=== PATIENT | female | born 1985 | race Caucasian/White ===

== ENCOUNTER 2016-09-22 11:48 | Inpatient (IN) | payer BC, OTHER ==
[~2016-09-22] VITALS: Ht 152.4 cm; Wt 87.7 kg
[~2016-09-22 11:48] MED LIST: ACYC-109 PO; AMPH20TA2 PO; BIRTH CONTROL; DIAZ-345 PO
[2016-09-22 12:03] VITALS: BP 136/83
[2016-09-22] MEDS ORDERED: MINERAL OIL CONCENTRATE 99.9% 15 ML UDC TOP PRN (13:00)
[2016-09-22] MEDS: D5 LR IV SOLUTION 1,000 ML IV SCH ×2 (13:08→21:10)
[2016-09-22 13:20] LABS: BASOPHILS % (AUTO) 0 % (0-10); EOSINOPHILS % (AUTO) 0 % (0-10); LYMPHOCYTES # (AUTO) 1.7 X 10^3 (1.0-4.0); LYMPHOCYTES % (AUTO) 17 % (12-44); MEAN CORPUSCULAR HEMOGLOBIN 32 PG (25-34); MEAN CORPUSCULAR HGB CONC 34 G/DL (32-36); MEAN CORPUSCULAR VOLUME 93 FL (80-99); MEAN PLATELET VOLUME 11.2 FL (7.4-10.4); MONOCYTES # (AUTO) 0.6 X 10^3 (0.0-1.0); MONOCYTES % (AUTO) 6 % (0-12); NEUTROPHILS # (AUTO) 7.7 X 10^3 (1.8-7.8); NEUTROPHILS % (AUTO) 77 % (42-75); PLATELET COUNT 144 10^3/uL (130-400); RED CELL DISTRIBUTION WIDTH 13.1 % (10.0-14.5)
[2016-09-22 13:41] LABS: BILIRUBIN,URINE NEGATIVE (NEGATIVE); KETONES,URINE NEGATIVE (NEGATIVE); LEUKOCYTE ESTERASE ,URINE 1+ (NEGATIVE); NITRITE,URINE NEGATIVE (NEGATIVE); PH,URINE 7 (5-9); PROTEIN,URINE NEGATIVE (NEGATIVE); UROBILINOGEN,URINE NORMAL (NORMAL)
[2016-09-22] MEDS ORDERED: CATHETER FLUSH 10 ML SYR IV SCH (14:00)
[2016-09-22] MEDS ORDERED: PROMETHAZINE INJ 25 MG/ML (PHENERGAN) AMP IVP PRN (16:15)
[2016-09-22] MEDS: fentaNYL INJECTION 100 MCG/2 ML AMP IVP PRN ×2 (16:47→20:13)
[2016-09-22 16:48] VITALS: BP 124/82
[2016-09-22] MEDS ORDERED: ZOLPIDEM 5 MG (AMBIEN) TAB PO ONE (21:00)
[2016-09-22] MEDS ORDERED: ANTACID SUSP 30 ML UDC (MYLANTA) PO PRN (21:00)
[2016-09-22] MEDS ORDERED: MISOPROSTOL 100 MCG (CYTOTEC) TAB PO ONE (21:00)
[2016-09-22 21:17] VITALS: BP 135/84
[2016-09-23] VITALS (60 sets, daily range): BP systolic 108–179; BP diastolic 54–93
[2016-09-23] MEDS: fentaNYL INJECTION 100 MCG/2 ML AMP IVP PRN (00:41)
[2016-09-23] MEDS ORDERED: LACTATED RINGERS 1,000 ML IV ONE ×2 (02:09→03:25)
[2016-09-23] MEDS ORDERED: SUFENTA 0.6MCG/ML BUPIVA 0.125 100 ML ONE (02:16)
[2016-09-23] MEDS ORDERED: BUPIVACAINE 0.25% 30 ML (SENSORCAINE) VIAL ONE (02:51)
[2016-09-23] MEDS ORDERED: NALOXONE 0.4 MG/ML 1 ML (NARCAN) VIAL IV PRN (03:30)
[2016-09-23] MEDS ORDERED: ONDANSETRON 4 MG/2 ML (SDV) Z0FRAN IV PRN (03:30)
[2016-09-23] MEDS ORDERED: EPIDURAL (SUFENTA 0.6MCG/ML BUPIVA 0.125%) 100 ML BAG EPI SCH (03:30)
[2016-09-23] MEDS: D5 LR IV SOLUTION 1,000 ML IV SCH (03:59)
[2016-09-23] MEDS ORDERED: LIDOCAINE/EPI 1%-1:200,000 (XYLOCAINE) 30 ML VIAL ONE (07:36)
--- NOTE | 2016-09-23 08:30 | Progress Note-Standard ---
Standard Progress Note Progress Notes/Assess & Plan Date Seen by Provider: Sep 23, 2016 Time Seen by Provider: 08:20 Progress/Assessment & Plan Patient admitted in active labor yesterday. Has had spontaneous contractions through the day and evening. Epidural placed after 2 doses of fentanyl. AROM this am at 9+ cm. Particulate meconium noted. 40 6/7 weeks today. well being reassuring. there are accelerations and also early decelerations. Contractions about every 4 minutes. Anticipate . Discussed Delee suction on perineum. Peds aware VS - Last 72 Hours, by Label 09/22/16 09/22/16 09/22/16 09/22/16 12:03 16:48 19:32 21:17 Temp 98.9 99.0 98.9 99.1 Pulse 75 71 73 Resp 18 18 18 B/P (MAP) 136/83 124/82 135/84 O2 Delivery Room Air Room Air Room Air 09/23/16 09/23/16 09/23/16 09/23/16 00:34 02:57 03:03 03:06 Temp 98.4 Pulse 76 85 81 74 Resp 18 20 20 20 B/P (MAP) 134/84 157/93 131/81 138/87 Pulse Ox 99 98 O2 Delivery Room Air Room Air Room Air Room Air 09/23/16 09/23/16 09/23/16 09/23/16 03:09 03:12 03:15 03:18 Pulse 77 82 78 80 Resp 20 20 20 18 B/P (MAP) 125/82 118/74 123/76 116/71 Pulse Ox 98 99 99 O2 Delivery Room Air Room Air Room Air Room Air 09/23/16 09/23/16 09/23/16 09/23/16 03:21 03:24 03:27 03:30 Pulse 82 83 81 71 Resp 18 18 18 18 B/P (MAP) 118/69 117/68 119/64 111/66 Pulse Ox 98 99 99 O2 Delivery Room Air Room Air Room Air Room Air 09/23/16 09/23/16 09/23/16 09/23/16 03:33 03:36 03:39 03:42 Pulse 80 78 75 81 Resp 18 18 18 18 B/P (MAP) 112/72 113/70 115/72 118/70 Pulse Ox 100 99 O2 Delivery Room Air Room Air Room Air Room Air 09/23/16 09/23/16 09/23/16 09/23/16 03:45 03:50 04:15 04:30 Temp 97.2 Pulse 72 64 70 65 Resp 18 18 18 18 B/P (MAP) 119/70 111/67 111/66 110/69 Pulse Ox 99 99 98 97 O2 Delivery Room Air Room Air Room Air Room Air 09/23/16 09/23/16 09/23/16 09/23/16 04:45 05:00 05:15 05:30 Pulse 63 68 75 71 Resp 18 18 18 18 B/P (MAP) 110/66 114/64 109/62 110/62 Pulse Ox 97 97 97 97 O2 Delivery Room Air Room Air Room Air Room Air 09/23/16 09/23/16 09/23/16 09/23/16 05:45 06:00 06:15 06:30 Pulse 68 76 69 75 Resp 18 18 18 18 B/P (MAP) 108/65 113/61 113/64 111/61 Pulse Ox 97 96 96 97 O2 Delivery Room Air Room Air Room Air Room Air 09/23/16 09/23/16 06:45 07:00 Pulse 74 78 Resp 18 18 B/P (MAP) 127/69 130/68 Pulse Ox 99 100 O2 Delivery Room Air Room Air Laboratory Tests Test 09/22/16 12:40 09/22/16 13:08 Range/Units Urine Color YELLOW Urine Clarity CLEAR Urine pH 7 5-9 Urine Specific [place] 1.010 L 1.016-1.022 Urine Protein NEGATIVE NEGATIVE Urine Glucose (UA) 1+ H NEGATIVE Urine Ketones NEGATIVE NEGATIVE Urine Nitrite NEGATIVE NEGATIVE Urine Bilirubin NEGATIVE NEGATIVE Urine Urobilinogen NORMAL NORMAL MG/DL Urine Leukocyte Esterase 1+ H NEGATIVE Urine RBC (Auto) NEGATIVE NEGATIVE Urine RBC NONE /HPF Urine WBC NONE /HPF Urine Squamous Epithelial Cells 2-5 /HPF Urine Crystals NONE /LPF Urine Bacteria FEW H /HPF Urine Casts NONE /LPF Urine Mucus NEGATIVE /LPF Urine Culture Indicated NO White Blood Count 10.0 4.3-11.0 10^3/uL Red Blood Count 4.00 L 4.35-5.85 10^6/uL Hemoglobin 12.7 11.5-16.0 G/DL Hematocrit 37 35-52 % Mean Corpuscular Volume 93 80-99 FL Mean Corpuscular Hemoglobin 32 25-34 PG Mean Corpuscular Hemoglobin Concent 34 32-36 G/DL Red Cell Distribution Width 13.1 10.0-14.5 % Platelet Count 144 130-400 10^3/uL Mean Platelet Volume 11.2 H 7.4-10.4 FL Neutrophils (%) (Auto) 77 H 42-75 % Lymphocytes (%) (Auto) 17 12-44 % Monocytes (%) (Auto) 6 0-12 % Eosinophils (%) (Auto) 0 0-10 % Basophils (%) (Auto) 0 0-10 % Neutrophils # (Auto) 7.7 1.8-7.8 X 10^3 Lymphocytes # (Auto) 1.7 1.0-4.0 X 10^3 Monocytes # (Auto) 0.6 0.0-1.0 X 10^3 Eosinophils # (Auto) 0.0 0.0-0.3 10^3/uL Basophils # (Auto) 0.0 0.0-0.1 10^3/uL AYAN PALM DO Sep 23, 2016 08:30
--- NOTE | 2016-09-23 09:57 | History & Physical-OB ---
OB - Chief Complaint & HPI Date/Time Date of Admission: Date of Admission: Sep 22, 2016 at 12:48 Time Seen by Provider: 08:20 Chief Complaint/History OB-Reason for Admission/Chief: Onset of Labor Hx : 1 Hx Para: 0 Expected Date of Delivery: Sep 17, 2016 Gestational Age in Weeks: 40 Gestational Age in Days: 5 Other reason for admission: Patient states she has been having contractions since friday evening, but these have increased today. They are reportedly about every 5 minutes. she Admission Nurse Assessment Rev: Yes History of Labs O +/- Rub I VDRL NR HIV - HBsAg - GBS - Other Had asymptomatic bactiuria in first trimester treated. Had episode of herpes labialis treated second trimester. History of cervical HPV with colposcopy. Most recent pap smears wnl No history of LEEP No history of genital herpes. Allergies and Home Medications Allergies Coded Allergies: No Known Drug Allergies (Unverified , 12/09/11) OB - History Hx of Present Care: Yes Ultrasounds: Normal mid trimester US Obstetrical Complications: None Medical Complications: None Information Induced Hypertension: No Maternal Gestational Diabetes: No Hemorrhage: No Obstetrical History Hx : 1 Hx Para: 0 Delivery History Hx Blood Disorders: No Adverse Rxn to Tranfusion: No Patient Past Medical History NC Social History/Family History HIV/AIDS: No Recent Infectious Disease Expo: No Sexually Transmitted Disease: Yes (HPV in High School) Alcohol Use: Denies Use Recreational Drug Use: No Immunizations Hepatitis A: No Hepatitis B: Yes Tetanus Booster (TDap): Less than 5yrs (07/15/16) Rubella: immune RPR/VDRL: Negative GBS Status: Negative HBsAG: Negative OB - Admission Exam Physical Exam Date Seen by Provider: Sep 23, 2016 Time Seen by Provider: 08:20 Vitals: Vital Signs 09/23/16 09/23/16 07:35 09:21 Temp 99.1 Pulse 74 Resp 18 B/P (MAP) 126/80 Pulse Ox 98 O2 Delivery Room Air Heart: Rhythm Normal Lungs: Clear, Equal Abdomen: Gravid Extremities: Edema (tr) Cervical Dilatation: 9cm (Patient was 2 cm dilated on admission but has labored all night. On my most recent exam was 9 cm. AROM meconium) Effacement: 100% Station: -1 Membranes: Ruptured Amniotic Fluid: Thin Meconium Heart Rate: 140's Accelerations: Accelerations Present Decelerations: Early Decelerations Short Term Variability: Present Mcc Variability: Minimal (3-5) Contractions on Admission: < 5 Minutes Apart Intensity: Moderate Labs Laboratory Tests Test 09/22/16 12:40 09/22/16 13:08 Range/Units Urine Color YELLOW Urine Clarity CLEAR Urine pH 7 5-9 Urine Specific [place] 1.010 L 1.016-1.022 Urine Protein NEGATIVE NEGATIVE Urine Glucose (UA) 1+ H NEGATIVE Urine Ketones NEGATIVE NEGATIVE Urine Nitrite NEGATIVE NEGATIVE Urine Bilirubin NEGATIVE NEGATIVE Urine Urobilinogen NORMAL NORMAL MG/DL Urine Leukocyte Esterase 1+ H NEGATIVE Urine RBC (Auto) NEGATIVE NEGATIVE Urine RBC NONE /HPF Urine WBC NONE /HPF Urine Squamous Epithelial Cells 2-5 /HPF Urine Crystals NONE /LPF Urine Bacteria FEW H /HPF Urine Casts NONE /LPF Urine Mucus NEGATIVE /LPF Urine Culture Indicated NO White Blood Count 10.0 4.3-11.0 10^3/uL Red Blood Count 4.00 L 4.35-5.85 10^6/uL Hemoglobin 12.7 11.5-16.0 G/DL Hematocrit 37 35-52 % Mean Corpuscular Volume 93 80-99 FL Mean Corpuscular Hemoglobin 32 25-34 PG Mean Corpuscular Hemoglobin Concent 34 32-36 G/DL Red Cell Distribution Width 13.1 10.0-14.5 % Platelet Count 144 130-400 10^3/uL Mean Platelet Volume 11.2 H 7.4-10.4 FL Neutrophils (%) (Auto) 77 H 42-75 % Lymphocytes (%) (Auto) 17 12-44 % Monocytes (%) (Auto) 6 0-12 % Eosinophils (%) (Auto) 0 0-10 % Basophils (%) (Auto) 0 0-10 % Neutrophils # (Auto) 7.7 1.8-7.8 X 10^3 Lymphocytes # (Auto) 1.7 1.0-4.0 X 10^3 Monocytes # (Auto) 0.6 0.0-1.0 X 10^3 Eosinophils # (Auto) 0.0 0.0-0.3 10^3/uL Basophils # (Auto) 0.0 0.0-0.1 10^3/uL OB - Assessment/Plan/Diagnosis Assessment Assessment: active labor Plan Plan: Expectant Management Other Plan Patient was admitted for expectant management. She changed slowly initially and then had decrease in contraction frequency. Misoprostol 50 mcg was given at 2000 due to decreased contractions and cervix still 3 cm/70% effaced. She then had increase in contractions and was 5 cm at 0300. Had epidural. Was 7 cm at 0700 and 9 cm at 0815 with AROM. Anticipate . AYAN Mohan DO Sep 23, 2016 09:57
[2016-09-23] MEDS ORDERED: OXYTOCIN/NORMAL SALINE 500 ML IV SCH ×2 (09:59→12:02)
[2016-09-23] MEDS ORDERED: AMPICILLIN/SULBACTAM 3 GM VIAL (UNASYN) ONE (10:49)
[2016-09-23] MEDS ORDERED: NS (IVPB) 100 ML ONE (10:49)
[2016-09-23] MEDS ORDERED: AMPICILLIN/SULBACTAM INJECTION 3 GM in NS (IVPB) 100 ML IV ONE ×2 (11:00→12:00)
[2016-09-23] MEDS ORDERED: metroNIDAZOLE 500MG/100ML IVPB 100 ML IV ONE (12:00)
[2016-09-23] MEDS ORDERED: MISOPROSTOL 200 MCG (CYTOTEC) TABLET PR ONE (12:00)
--- NOTE | 2016-09-23 12:02 | OB Labor & Delivery Record ---
Vag Delivery Note Vag Delivery Note Date of Delivery: 09/23/16 Preoperative Diagnosis: Neeru Luna is a 30 year old at 40 6/7 weeks in spontaneous labor meconium with AROM at 0820 (approximately), elevated temp during pushing (100.2 ) so Unasyn started (3 grams given). Postoperative Diagnosis: Same, post hemorrhage, manual evacuation of the uterus. Surgeon: AYAN PALM Anesthesia: epidural Delivery Type: vaginal Findings: Viable female infant, apgars 8/9, weight 7#12oz Lacerations: Intact placenta with 3 vessel cord. No nuchal cord, body cord. There was a shoulder dystocia, mild, that recovered with Juanita maneuver, suprapubic pressure and delivery of the posterior shoulder. This recovered in less than 1 minute. Cytotec 800 mcg placed for hemorrhage prophylaxis, she is at risk Estimated Blood Loss: 1200 ml Complications: None Condition: Stable Description of Procedure: The patient is a 30 year old at 40 6/7 weeks in spontaneous labor yesterday. She was 2 cm dilated on admission, but alison painfully. She contracted spontaneously, but in the evening on 09/22/16, contractions had slowed considerably and cervix was 3 cm dilated, so misoprostol 50 mcg was given x 1. She received epidural approximately 0300 and cervix 5 cm dilated after that. She then was 7 cm at approximately 0700. I performed AROM at 0820 and there was particulate meconium fluid. The well being was reassuring. She progressed to complete dilatation and began to push. She was then set up for delivery. The 's head was delivered atraumatically in the DOMINIC position. The shoulders and remainder of the ' s body were then delivered with assistance of Juanita maneuver, suprapubic pressure and delivery of the posterior shoulder. Upon delivery, the head was held below the level of the perineum and the mouth and nares were DeLee suctioned. The cord was doubly clamped and cut and the infant was again DeLee suctioned. There was moderate amount of fluid suctioned from the nose and oropharynx. The was handed off to the pediatric staff. An intact placenta with 3-vessel cord delivered via Vivian and there was found to be minimal bleeding.~ Vigorous fundal massage was performed and the fundus was found to be firm. IV oxytocin was given. Examination of the vagina and perineum revealed a 2nd degree laceration with partial capsulotomy (< 5 mm) and extension (1cm) up the right vaginal sulcus. The was repaired in the usual fashion with 3-0 Vicryl suture. Following the repair there was continued oozing from the cervix. I examined for cervical laceration but found none. The uterus was firm, however, I did a manual exam of the cervix and evacuated about 500 of clotted blood from the uterus. Previous estimated of EBL was 700ml. At this point, sponge, instrument and needle counts were correct. Mom and baby were both in stable condition in the labor suite. Will continue IV antibiotics for another dose. And give pr misoprostol for continued hemorrhage prophylaxis. She is at risk due to prolonged labor, possible chorioamnionitis, post dates . Vitals - Labs Vital Signs - I&O Vital Signs Date Time Temp Pulse Resp B/P (MAP) Pulse Ox O2 Delivery O2 Flow Rate FiO2 09/23/16 09:21 74 18 126/80 Room Air 09/23/16 09:07 72 18 143/79 Room Air 09/23/16 08:51 75 18 139/80 Room Air 09/23/16 08:36 77 18 131/85 Room Air 09/23/16 08:23 75 18 124/74 Room Air 09/23/16 08:07 72 18 118/70 Room Air 09/23/16 07:50 74 18 114/72 Room Air 09/23/16 07:35 99.1 73 18 112/70 98 Room Air 09/23/16 07:21 71 18 110/67 99 Room Air 09/23/16 07:05 91 18 110/76 100 Room Air 09/23/16 07:00 78 18 130/68 100 Room Air 09/23/16 06:45 74 18 127/69 99 Room Air 09/23/16 06:30 75 18 111/61 97 Room Air 09/23/16 06:15 69 18 113/64 96 Room Air 09/23/16 06:00 76 18 113/61 96 Room Air 09/23/16 05:45 68 18 108/65 97 Room Air 09/23/16 05:30 71 18 110/62 97 Room Air 09/23/16 05:15 75 18 109/62 97 Room Air 09/23/16 05:00 68 18 114/64 97 Room Air 09/23/16 04:45 63 18 110/66 97 Room Air 09/23/16 04:30 65 18 110/69 97 Room Air 09/23/16 04:15 70 18 111/66 98 Room Air 09/23/16 03:50 97.2 64 18 111/67 99 Room Air 09/23/16 03:45 72 18 119/70 99 Room Air 09/23/16 03:42 81 18 118/70 Room Air 09/23/16 03:39 75 18 115/72 99 Room Air 09/23/16 03:36 78 18 113/70 100 Room Air 09/23/16 03:33 80 18 112/72 Room Air 09/23/16 03:30 71 18 111/66 99 Room Air 09/23/16 03:27 81 18 119/64 Room Air 09/23/16 03:24 83 18 117/68 99 Room Air 09/23/16 03:21 82 18 118/69 98 Room Air 09/23/16 03:18 80 18 116/71 Room Air 09/23/16 03:15 78 20 123/76 99 Room Air 09/23/16 03:12 82 20 118/74 99 Room Air 09/23/16 03:09 77 20 125/82 98 Room Air 09/23/16 03:06 74 20 138/87 98 Room Air 09/23/16 03:03 81 20 131/81 99 Room Air 09/23/16 02:57 85 20 157/93 Room Air 09/23/16 00:34 98.4 76 18 134/84 Room Air 09/22/16 21:17 99.1 73 18 135/84 Room Air 09/22/16 19:32 98.9 09/22/16 16:48 99.0 71 18 124/82 Room Air 09/22/16 12:03 98.9 75 18 136/83 Room Air I & O 09/23/16 07:00 Intake Total 2800 ml Balance 2800 ml Labs Laboratory Tests 09/22/16 12:40: Urine Color YELLOW, Urine Clarity CLEAR, Urine pH 7, Urine Specific [place] 1.010L, Urine Protein NEGATIVE, Urine Glucose (UA) 1+H, Urine Ketones NEGATIVE, Urine Nitrite NEGATIVE, Urine Bilirubin NEGATIVE, Urine Urobilinogen NORMAL, Urine Leukocyte Esterase 1+H, Urine RBC (Auto) NEGATIVE, Urine RBC NONE, Urine WBC NONE, Urine Squamous Epithelial Cells 2-5, Urine Crystals NONE, Urine Bacteria FEWH, Urine Casts NONE, Urine Mucus NEGATIVE, Urine Culture Indicated NO 09/22/16 13:08: White Blood Count 10.0, Red Blood Count 4.00L, Hemoglobin 12.7, Hematocrit 37, Mean Corpuscular Volume 93, Mean Corpuscular Hemoglobin 32, Mean Corpuscular Hemoglobin Concent 34, Red Cell Distribution Width 13.1, Platelet Count 144, Mean Platelet Volume 11.2H, Neutrophils (%) (Auto) 77H, Lymphocytes (%) (Auto) 17, Monocytes (%) (Auto) 6, Eosinophils (%) (Auto) 0, Basophils (%) (Auto) 0, Neutrophils # (Auto) 7.7, Lymphocytes # (Auto) 1.7, Monocytes # (Auto) 0.6, Eosinophils # (Auto) 0.0, Basophils # (Auto) 0.0 AYAN PALM DO Sep 23, 2016 12:02
[2016-09-23] MEDS ORDERED: MEASLES,MUMPS,RUBELLA 1 EA INJ SQ ONE (12:15)
[2016-09-23] MEDS ORDERED: DIBUCAINE (NUPERCAINAL) 1% OINT 30 GM TOP PRN (12:15)
[2016-09-23] MEDS ORDERED: TETANUS,DIPTH,PERTUSS P/F (BOOSTRIX) 0.5 ML VIAL IM ONE (12:15)
[2016-09-23] MEDS ORDERED: WITCH HAZEL(TUCKS) 40 EA JAR TOP PRN (12:15)
[2016-09-23] MEDS ORDERED: BENZOCAINE/MENTHOL (DERMOPLAST) 56 ML CAN TP PRN (12:15)
[2016-09-23] MEDS ORDERED: FERR-74 PO (12:20)
[2016-09-23] MEDS ORDERED: DOCU100C37 PO (12:20)
[2016-09-23] MEDS ORDERED: IBUP-1773 PO (12:20)
[2016-09-23] MEDS ORDERED: HYDR-3812 PO (12:20)
[2016-09-23] MEDS: IBUPROFEN 600 MG (MOTRIN) TAB PO SCH ×2 (13:02→18:42)
--- NOTE | 2016-09-23 13:39 | Anesthesia-Regional Post-Op ---
Regional Patient Condition Mental Status: Alert, Oriented x3 Circulation: Same as Pre-Op Headache: Absent Sensation: Full Recovery Motor Block: Absent Post Op Complications Complications None Follow Up Care/Instructions Patient Instructions None needed. Anesthesia/Patient Condition Patient is doing well, no complaints, stable vital signs, no apparent adverse anesthesia problems. No complications reported per nursing. SYDNI SANCHEZ CRNA Sep 23, 2016 13:38
[2016-09-23] MEDS ORDERED: CATHETER FLUSH 10 ML SYR IV SCH (14:00)
[2016-09-23] MEDS ORDERED: AMPICILLIN/SULBACTAM INJECTION 1.5 GM in NS (IVPB) 50 ML IV ONE (17:00)
[2016-09-23] MEDS ORDERED: AUGMENTIN 875 MG TAB (AMOXICILLIN/CLAVULANATE) PO NR (18:15)
[2016-09-23] MEDS: HYDROcodone/APAP 5 MG/325 MG (LORTAB) TAB PO PRN (20:43)
[2016-09-23] MEDS: DOCUSATE SODIUM 100 MG (COLACE) CAP PO SCH (21:55)
[2016-09-24] MEDS: IBUPROFEN 600 MG (MOTRIN) TAB PO SCH ×3 (01:06→12:03)
[2016-09-24 02:00] VITALS: BP 126/80
[2016-09-24] MEDS: HYDROcodone/APAP 5 MG/325 MG (LORTAB) TAB PO PRN ×3 (02:08→12:02)
[2016-09-24 06:42] VITALS: BP 118/72
[2016-09-24] MEDS ORDERED: PRENATAL VITAMIN 1 EA TAB PO SCH (07:00)
[2016-09-24] MEDS: DOCUSATE SODIUM 100 MG (COLACE) CAP PO SCH (08:35)
[2016-09-24 08:36] VITALS: BP 104/73
[2016-09-24] MEDS ORDERED: FERROUS SULF 325 MG (IRON) TAB PO SCH (09:00)
[2016-09-24 10:16] LABS: BASOPHILS % (AUTO) 0 % (0-10); EOSINOPHILS # (AUTO) 0.1 10^3/uL (0.0-0.3); EOSINOPHILS % (AUTO) 1 % (0-10); LYMPHOCYTES # (AUTO) 2.2 X 10^3 (1.0-4.0); LYMPHOCYTES % (AUTO) 19 % (12-44); MEAN CORPUSCULAR HEMOGLOBIN 32 PG (25-34); MEAN CORPUSCULAR HGB CONC 33 G/DL (32-36); MEAN CORPUSCULAR VOLUME 96 FL (80-99); MONOCYTES # (AUTO) 0.7 X 10^3 (0.0-1.0); MONOCYTES % (AUTO) 6 % (0-12); NEUTROPHILS # (AUTO) 8.4 X 10^3 (1.8-7.8); NEUTROPHILS % (AUTO) 73 % (42-75); PLATELET COUNT 117 10^3/uL (130-400); RED BLOOD COUNT 3.24 10^6/uL (4.35-5.85); RED CELL DISTRIBUTION WIDTH 13.6 % (10.0-14.5); WHITE BLOOD COUNT 11.5 10^3/uL (4.3-11.0)
--- NOTE | 2016-09-24 10:22 | Postpartum Progress Note ---
Note Note Day # 1 s/p Subjective: Patient is without complaints. Ambulating, voiding. Tolerating a regular diet without nausea or vomiting. Normal lochia. Pain is well controlled with oral pain medications. breast feeding. CBC pending Objective: Physical Exam: General - Alert and oriented, no apparent distress Abdomen - Soft, appropriately tender to palpation, non-distended, fundus firm at umbilicus Extremities - no edema, negative John's bilaterally Assessment: 1. post- day # 1, status post spontaneous vaginal delivery. Recovering well, hemodynamically stable 2. Acute blood loss anemia - PP hemorrhage, CBC pending today 3. Fever during labor, suspect chorio (though only ruptured about 2 hours). Afebrile since. 4. Manual evacuation of the uterus. Plan: Routine care. Encourage breast feeding. Encourage ambulation. Ferrous sulfate supplementation. Plan for discharge today. Await cbc results. Vitals - Labs Vital Signs - I&O Vital Signs Date Time Temp Pulse Resp B/P (MAP) Pulse Ox O2 Delivery O2 Flow Rate FiO2 09/24/16 08:36 98.3 72 20 104/73 Room Air 09/24/16 06:42 98.2 72 20 118/72 Room Air 09/24/16 02:00 97.6 89 20 126/80 09/23/16 22:10 97.8 78 20 111/70 97 Room Air 09/23/16 17:50 98.9 94 18 112/78 96 Room Air 09/23/16 14:05 83 18 116/83 Room Air 09/23/16 13:49 74 18 120/74 Room Air 09/23/16 13:34 78 18 115/71 Room Air 09/23/16 13:19 79 18 119/64 Room Air 09/23/16 13:05 81 18 121/61 Room Air 09/23/16 12:50 90 18 121/56 Room Air 09/23/16 12:34 90 18 114/65 Room Air 09/23/16 12:21 93 18 121/68 Room Air 09/23/16 11:50 99 18 134/67 Room Air 09/23/16 11:35 100.9 117 18 130/77 Room Air 09/23/16 11:22 79 18 121/57 Room Air 09/23/16 11:08 77 18 179/79 Room Air 09/23/16 10:51 76 18 145/85 Room Air 09/23/16 10:39 82 18 124/54 Room Air 09/23/16 10:22 86 18 126/85 Room Air I & O 09/24/16 07:00 Intake Total 700 ml Balance 700 ml Labs Microbiology 09/23/16 Gram Stain - Final, Resulted 09/23/16 Wound Culture - Preliminary, Resulted No growth AYAN PALM DO Sep 24, 2016 10:22
--- NOTE | 2016-09-24 10:25 | Discharge Inst-Women's Service ---
Discharge Inst-Women's Serv Depart Medication/Instructions New, Converted or Re-Newed RX: RX on Chart Final Diagnosis Labor fever during labor suspected chorioamnionitis 2nd degree laceration Epidural PP hemorrhage Acute blood anemia Consults/Follow Up Additional Follow Up: Yes ([address] sultana for PP exam ) Activity Activity: Activity as Tolerated Driving Instructions: You May Drive NO SMOKING: NO SMOKING Nothing Inside Vagina: No Douching, No Anita (6 weeks minimum), No Tampons Diet Discharge Diet: No Restrictions Symptoms to Report to : Bleeding Excessive, Pain Increased, Fever Over 101 Degrees F, Vaginal Bleeding Increase, Cramps in Feet or Legs, Vaginal Discharge Foul For Any Problems or Questions: Contact Your Physician Skin/Wound Care Infection Signs and Symptoms: Increased Redness, Foul Odor of Wound, Increased Drainage, Skin Itchy or Has a Rash, Increased Swelling, Temperature Above 101 F Bathing Instructions: AYAN Amin DO Sep 24, 2016 10:25
== END 2016-09-24 14:30 | disposition home or self-care (01) | DRG 774 ==
LOC: LDRP 11:48 → WSo 11:48 → LDRP 12:48
PROVIDERS: ADMIT Obstetrics & Gynecology; ATTEND Obstetrics & Gynecology
PROC: 10E0XZZ Delivery of Products of Conception, External Approach (ICD-10-PCS; principal; 2016-09-23)
PROC: 0KQM0ZZ Repair Perineum Muscle, Open Approach (ICD-10-PCS; 2016-09-23)
PROC: 0UC97ZZ Extirpation of Matter from Uterus, Via Natural or Artificial Opening (ICD-10-PCS; 2016-09-23)
DX: O48.0 Post-term pregnancy (principal); O63.0 Prolonged first stage (of labor); O72.1 Other immediate postpartum hemorrhage; O90.81 Anemia of the puerperium; D62 Acute posthemorrhagic anemia; O75.2 Pyrexia during labor, not elsewhere classified; O70.1 Second degree perineal laceration during delivery; O66.0 Obstructed labor due to shoulder dystocia; Z37.0 Single live birth; Z3A.40 40 weeks gestation of pregnancy
CPT/HCPCS: 36415; 81000; 85025; 86850; 86900; 86901; 87070; 87205; 99212

== ENCOUNTER → 2019-06-03 | Outpatient (CLI) | payer OTHER ==
[~2019-06-03] MED LIST changes: +ACHD5005 PO; +DOCU100C37 PO; +FERR325T18 PO; +IBUP-1773 PO
--- NOTE | 2019-06-04 07:31 | Diagnostic Imaging Report ---
INDICATION: survey. TECHNIQUE: Multiple real-time grayscale images were obtained over the gravid uterus. COMPARISON: There are no prior studies available for comparison. FINDINGS: There is a single live fetus in cephalic presentation. heart motion was not and a rate of 140 BPM was recorded. There were no abnormalities identified. The growth parameters are fairly uniform. The placenta is posterior and there is no previa. The amniotic fluid volume is within normal limits. The cervix was identified and measures 4.3 cm in length. Biometrical measurements are as follows: Biparietal 5.75 cm, age 23 weeks 5 days. Head circumference 21.41 cm, age 23 weeks 4 days. Abdominal circumference 17.51 cm, age 22 weeks 4 days. Femur length 3.84 cm, age 22 weeks 3 days. Sonographic estimate age: 23 weeks 1 days. Sonographic estimated date of delivery: 09/29/19. Estimated Weight: 512 gm (+/- 75 gm). LMP percentile: 56%. heart rate: 140 beats per minute. number: 1 of 1. IMPRESSION: 1. There is a single live fetus of approximately 23 weeks 1 day gestation +/- 1.5 weeks. The EDC is September 29, 2019. 2. There were no abnormalities identified. 3. The growth parameters are fairly uniform. Dictated by: Dictated on workstation # [id number]
== END ==
LOC: RAD 11:30
PROVIDERS: ATTEND Nurse Practitioner Women's Health
DX: Z36.89 Encounter for other specified antenatal screening (principal); Z3A.23 23 weeks gestation of pregnancy
CPT/HCPCS: 76805

== ENCOUNTER 2019-09-27 20:00 | Inpatient (IN) | payer OTHER ==
[~2019-09-27] VITALS: Ht 152.4 cm; Wt 87.4 kg
--- NOTE | 2019-09-27 20:10 | NUR ---
CASSY HAYS presented to unit via ambulation from ED, accompanied by , with c/o INDUCTION. CASSY HAYS weighed, gowned, voided, and to bed. EFHM and TOCO applied, VS taken. CASSY HAYS oriented to bed controls, call light, TV, heat, and A/C controls.
--- NOTE | 2019-09-27 20:13 | NUR ---
Contacted Dr Muse and received orders for cervical ripening. POC discussed with pt and no concerns at this time.
[2019-09-27] MEDS ORDERED: NS IV 1000 ML 1,000 ML ONE (20:14)
[2019-09-27 20:30] VITALS: BP 121/80
[2019-09-27] MEDS ORDERED: LEVO100T7 PO (20:58)
[2019-09-27] MEDS ORDERED: PREN1TAB79 PO (20:58)
[2019-09-27] MEDS ORDERED: NS IV 1000 ML 1,000 ML IV SCH (21:00)
[2019-09-27] MEDS ORDERED: ZOLPIDEM 5 MG (AMBIEN) TAB PO ONE (21:00)
[2019-09-27 21:10] VITALS: BP 109/71
[2019-09-27 21:10] LABS: BASOPHILS % (AUTO) 0 % (0-10); EOSINOPHILS # (AUTO) 0.1 10^3/uL (0.0-0.3); EOSINOPHILS % (AUTO) 1 % (0-10); HEMATOCRIT 36 % (35-52); HEMOGLOBIN 12.3 G/DL (11.5-16.0); LYMPHOCYTES # (AUTO) 2.1 X 10^3 (1.0-4.0); LYMPHOCYTES % (AUTO) 24 % (12-44); MEAN CORPUSCULAR HEMOGLOBIN 32 PG (25-34); MEAN CORPUSCULAR HGB CONC 34 G/DL (32-36); MEAN CORPUSCULAR VOLUME 92 FL (80-99); MEAN PLATELET VOLUME 11.1 FL (7.4-10.4); MONOCYTES # (AUTO) 0.5 X 10^3 (0.0-1.0); MONOCYTES % (AUTO) 6 % (0-12); NEUTROPHILS # (AUTO) 6.2 X 10^3 (1.8-7.8); NEUTROPHILS % (AUTO) 70 % (42-75); PLATELET COUNT 166 10^3/uL (130-400); RED CELL DISTRIBUTION WIDTH 13.5 % (10.0-14.5); WHITE BLOOD COUNT 8.8 10^3/uL (4.3-11.0)
[2019-09-27 21:11] LABS: BILIRUBIN,URINE NEGATIVE (NEGATIVE); CLARITY,URINE CLEAR; COLOR,URINE YELLOW; GLUCOSE, URINE (UA) NEGATIVE (NEGATIVE); KETONES,URINE NEGATIVE (NEGATIVE); LEUKOCYTE ESTERASE ,URINE NEGATIVE (NEGATIVE); NITRITE,URINE NEGATIVE (NEGATIVE); PROTEIN,URINE NEGATIVE (NEGATIVE)
[2019-09-27] MEDS ORDERED: TERBUTALINE INJ 1 MG/ML (BRETHINE) AMP SC PRN (21:15)
[2019-09-27] MEDS ORDERED: MINERAL OIL CONCENTRATE 99.9% 15 ML UDC TOP PRN (21:15)
[2019-09-27] MEDS ORDERED: MISOPROSTOL 100 MCG (CYTOTEC) TAB PO ONE (21:15)
[2019-09-27 21:19] LABS: BACTERIA,URINE TRACE /HPF
[2019-09-27] MEDS: D5 LR IV SOLUTION 1,000 ML IV SCH (21:27)
[2019-09-27 22:00] VITALS: BP 118/73
[2019-09-27] MEDS ORDERED: CATHETER FLUSH 10 ML SYR IV SCH (22:00)
[2019-09-27 23:00] VITALS: BP 118/73
--- OUTSIDE RECORDS SUMMARY | 2019-09-27 23:30 | XMS REPORT | Continuity of Care Document ---
Author Organization Unknown Address Unknown Phone Unavailable Allergies There is no data. Medications There is no data. Problems There is no data. Procedures There is no data. Results There is no data. Encounters ACCT No. Visit Date/Time Discharge Status Pt. Type Provider Facility Loc./Unit Complaint [id number] 12/20/2014 09:13:43 12/20/2014 23:59: 59 CLS Outpatient Arian Leyva
--- OUTSIDE RECORDS SUMMARY | 2019-09-27 23:30 | XMS REPORT ---
Author Author [facility]1health [employer] [facility] Address [address] [address] Care Team Providers Care Navigating Officer Name Role Phone ANNELISE MATIAS Unavailable Arian Leyva Unavailable MATIAS, ANNELISE Unavailable MATIAS, ANNELISE Unavailable MATIAS, ANNELISE Unavailable [facility] Unavailable Unavailable [facility] Unavailable Unavailable MATIAS, ANNELISE Unavailable POLLY ANNELISE Unavailable [facility] PP Unavailable [facility] CCM Unavailable PALM DO, AYAN C Unavailable Unavailable PALM DO, AYAN C Unavailable Unavailable ESPERANZA CORLEY APRN Unavailable Unavailable Unavailable Unavailable PALM AYAN DO Unavailable Unavailable SHRAVAN CHADWICK Unavailable Unavailable PALM AYAN DO Unavailable Unavailable ESPERANZA CORLEY APRN Unavailable Unavailable MATIAS ANNELISE Unavailable Unavailable PALM DO, AYAN C Unavailable Unavailable PALM DO, AYAN C Unavailable Unavailable NADYA VILLARREAL APRN Unavailable Unavailable GERTRUDE FIGUEROA APRN Unavailable Unavailable Unavailable Unavailable Unavailable Unavailable Unavailable Unavailable Unavailable Unavailable Unavailable Unavailable Unavailable Unavailable Unavailable Unavailable Unavailable Unavailable Unavailable Unavailable Unavailable Unavailable Allergies Normalized Allergy Reported Date of Reaction(s) Care Provider Facility Allergy Type classification allergen Allergy Onset DA (7 Unclassified No Known Drug 12-09-2011 - no information AYAN PALM , Not Available sources.) Allergies DO (75788) Medications Current Medications Medication Ingredient Drug Dose Dates Status Sig Sig Care Class(es) (Normalized) (Original) Provid er {21 {21 no Active no Cryselle-28 no (Ethinyl (Ethinyl information information 0.3-30 name Estradiol Estradiol MG-MCG 0.03 MG / 0.03 MG / Orally Once Norgestrel Norgestrel a day 1 0.3 MG Oral 0.3 MG Oral tablet 24h Tablet) / 7 Tablet) / 7 Active (Inert (Inert Ingredients Ingredients 1 MG Oral 1 MG Oral Tablet) } Tablet) } Pack Pack [Rogelio [Paulineselle 28] (1 ] source.) Translation s: [ Edwinalle-28 0.3-30 MG-MCG] Completed/Discontinued Medications Medication Ingredient Drug Dose Dates Status Sig Sig Care Class(es) (Normalized) (Original) Provid er amphetamine Amphetamine Central 20 mg 01-29-20 Complete take 1 Adderall 20 Shravan aspartate 5 aspartate / Nervous 18 - d tablet by mg table t Cranst mg / Amphetamine System 03-28-20 mouth twice RxNorm: on amphetamine Sulfate / Stimulant 18 daily 627733 1 Oth er sulfate 5 Dextroamphe Tablet(s) PO Phone: mg / tamine BID 1(137) dextroamphe saccharate 01/28/2018 232-55 tamine / 03/28/2018 81 saccharate Dextroamphe Inactive 5 mg / tamine dextroamphe Sulfate tamine sulfate 5 mg oral tablet (16 sources.) 20 mg 09-03-2017 Completed take 1 Adderall Marci - tablet 20 mg e Andrade 11-14-2017 by tablet Other mouth RxNorm: Phone: twice [phone] 1 1(059)23 daily Tablet(s 1-5098 ) PO BID 09/17/19 18 11/15/19 18 Inactive 20 mg 06-30-2017 Completed take 1 Adderall Shravan - tablet 20 mg Canaan 08-28-2017 by tablet Other mouth RxNorm: Phone: twice [phone] 1 1(302)23 daily Tablet(s 2-6019 ) PO BID 07/01/19 18 08/29/19 18 Inactive amphetamine amphetamine Central 20 mg 09-04-19 Complete take 1 Adderall 20 Stepha aspartate 5 /dextroamph Nervous 18 - d tablet by mg table t xiomara mg / etamine System 11-15-19 mouth twice RxNorm: Wagne r amphetamine Translation Stimulant 18 daily 245865 1 O ther sulfate 5 s: [ Tablet(s) PO Phone: mg / Amphetamine BID 1(211) dextroamphe aspartate 09/16/2017 232-55 tamine 2.5 MG / 11/14/2017 81 saccharate Amphetamine Inactive 5 mg / Sulfate 2.5 dextroamphe MG / tamine Dextroamphe sulfate 5 tamine mg oral saccharate tablet (4 2.5 MG / sources.) Dextroamphe tamine Sulfate 2.5 MG Oral Tablet [Adderall], Adderall 10 mg] 20 mg 06-30-2017 Completed take 1 Adderall Shravan - tablet 20 mg [place] 08-28-2017 by tablet Other mouth RxNorm: Phone: twice [phone] 1 1(840)23 daily Tablet(s 2-5581 ) PO BID 07/01/19 18 08/29/19 18 Inactive 10 mg Active no Adderall no name inform 10 mg ation Orally twice a day 1 tablet 12h Active atomoxetine atomoxetine Norepinephr 40 mg 06-23-19 Complete take 1 Strattera 40 Shravan 40 mg oral ine 19 - d capsule by mg capsule Cr anst capsule (2 Reuptake 08-05-19 mouth once RxNorm: on sources.) Inhibitor 19 daily 401611 1 Other Capsule(s) Phone: PO daily 1(584) 06/22/2018 232-55 08/04/2018 81 Inactive This is to replace the lexapro and adderall 24 hr buPROPion Aminoketone 10-20-19 no take 1 Wellbutrin Shravan buPROPion Translation 19 - informat tablet by XL 300 mg 24 Cranst hydrochlori s: [ 05-16-19 ion mouth once hr tablet, on de 300 mg Wellbutrin 20 daily extended Other extended XL 300 mg release Phone: release 24 hr RxNorm: 1(005) oral tablet tablet, 411985 1 232-55 (5 extended Tablet(s) PO 81 sources.) release] daily 10/19/2018 05/16/2019 Active 08-05-2018 Completed take 1 Wellbutr Shravan - tablet in XL Netta 08-04-2018 by 150 mg Other mouth 24 hr Phone: once tablet, 1(975)23 daily extended 2-5581 release RxNorm: 476802 1 Tablet(s ) PO daily 08/06/19 19 08/05/19 19 Inactive 08-05-2018 Completed take 1 Wellbutr Shravan - tablet in XL Netta 03-02-2019 by 150 mg Other mouth 24 hr Phone: once tablet, 1(128)23 daily extended 2-5581 release RxNorm: 718242 1 Tablet(s ) PO daily 08/06/19 19 10/19/19 19 Inactive escitalopra escitalopra Serotonin 5 mg 12-03-19 Complete take 1 Lexapro 5 mg Stepha m 5 mg oral m Reuptake 18 - d tablet by tablet xiomara tablet (16 Translation Inhibitor 06-22-19 mouth once RxNorm: Andrade sources.) s: [ 19 daily in the 172458 1 Other Lexapro 10 evening Tablet(s) PO Phone: mg tablet, QPM 1(620) Lexapro 5 12/02/2017 232-55 mg] 06/21/2018 81 Inactive 10 mg 11-07-2017 Completed take 1 Lexapro Marci - tablet 10 mg e Andrade 12-01-2017 by tablet Other mouth RxNorm: Phone: once 148199 1 1(622)23 daily Tablet(s 2-3481 in the ) PO QPM evenin 11/08/19 g 18 12/02/19 18 Inactive 5 mg 09-16-2017 Completed take 1 Lexapro Marci - tablet 5 mg e Andrade 11-06-2017 by tablet Other mouth RxNorm: Phone: once 429558 1 1(754)23 daily Tablet(s 2-7197 in the ) PO QPM evenin 09/17/19 g 18 11/07/19 18 Inactive Cryselle ethinyl Estrogen no take 1 Cryselle no (28) 0.3 estradiol / informat tablet by (28) 0.3 name mg-30 mcg norgestrel ion mouth once mg-30 mcg tablet (5 daily tablet sources.) RxNorm: 085228 1 Tablet(s) PO daily No Start Date Active no fenugreek no 500 mg 06-30-19 Complete take 1 fenugree k Nadya information [employer] information 18 d capsule by mary Villarreal (5 extract 500 mouth once 500 mg Other sources.) mg capsule daily capsule Phone: RxNorm: 1 1(620) Capsule(s) 232-55 PO daily No 81 Start Date 06/29/2017 Inactive lactobacill lactobacill no 06-30-19 Complete take 1 Probiotic 10 Nadya us us information 18 d capsule by [employer] [place] rhamnosus rhamnosus mouth once capsule Other gg gg daily RxNorm: Phone: [phone] 877525 1 1(620) unt oral Capsule(s) 232-55 capsule (5 PO daily No 81 sources.) Start Date 06/29/2017 Inactive no no 06-30-19 Complete no no information vitamin information 18 d information vitami n name (5 no.101-ferr no.101-daisy sources.) ous us fumarate-fo fumarate-fol lic ic acid-dha acid-dha oral RxNorm: oral oral No Start Date 06/29/2017 Inactive Problems Active Problems Problem Normalized Date Last Normalized Normalized Provider Fa cility Classification Problem(s) Recorded Problem Problem Sta tus Duration Residual 23 weeks 09-27-2019 - Episodic Active GERTRUDE PURDY Via codes; gestation of , [employer] - (4 sources.) [place] (34147) Residual 40 weeks 09-27-2019 - Episodic Active RAJWINDER NAJERA Via codes; gestation of DO [facility] unclassified Hospital - (2 sources.) [place] (80221) Acute Acute 09-27-2019 - Episodic Active AYAN PALM [facility] Via posthemorrhagi posthemorrhagi DO [facility] c anemia (5 c anemia Hospital - sources.) [place] (43878) Allergic Allergic Episodic Active ANNELISE Community reactions (2 contact MATIAS [address] [facility] sources.) dermatitis due of [place] to plants, [place] (57297) except food Translations: [ - Allergic contact dermatitis due to plants, except food L23.7, - Allergic contact dermatitis due to plants, except food L23.7] Other Anemia of the 09-27-2019 - Chronic Active AYAN Vargas [facility] Via complications puerperium DO [facility] of ; Hospital - puerperium [place] affecting (88742) management of mother (5 sources.) Attention-defi Attention-defi Chronic Active [place]ady[place] [address] , MICHAEL and disruptive hyperactivity (26615) (Work behavior disorder, Phone: disorders (20 combined type sources.) Translations: ) [ Attention-defi cit hyperactivity disorder, combined type, Attention-defi cit hyperactivity disorder, combined type, Attention-defi cit hyperactivity disorder, combined type] Nonspecific Chest pain, Episodic Active ESPERANZA CORLEY [facility] Via chest pain (3 unspecified [employer] [facility] sources.) Hospital - [place] (71766) Urinary tract Chronic Chronic Active AYAN PALM , Not A vailable infections (1 interstitial DO (75679) source.) cystitis Other Encounter for 09-27-2019 - Episodic Active GERTRUDE RICO [facility] Via screening for other , [employer] [facility] suspected specified Hospital - conditions [place] (not mental screening (33323) disorders or infectious disease) (4 sources.) Endometriosis Endometriosis Chronic Active AYAN PALM , Not Available (2 sources.) of uterus DO (52234) Translations: [ PELV PERIT ENDOMETRIOSIS] Anxiety Generalized Chronic Active Nadya duran disorders (20 anxiety 90600 MICHAEL AGRAWAL sources.) disorder (52765) (Work Translations: Phone: [ Generalized anxiety ) disorder, Generalized anxiety disorder, Generalized anxiety disorder] Mood disorders Major Chronic Active Nadya Chadwick (20 sources.) depressive 22935 MICHAEL AGRAWAL disorder, (24715) (Work recurrent, Phone: mild Translations: ) [ Major depressive disorder, recurrent, mild, Major depressive disorder, recurrent, mild, Major depressive disorder, recurrent, mild] Fetopelvic Obstructed 09-27-2019 - Episodic Active AYAN PALM [facility] Via disproportion; labor due to DO [facility] obstruction (5 shoulder Hospital - sources.) dystocia [place] (23439) Other Other 09-27-2019 - Episodic Active AYAN PALM [facility] Via complications immediate DO [facility] of ; Hospital - puerperium hemorrhage [place] affecting (00497) management of mother (5 sources.) Thyroid Other 09-27-2019 - Chronic Active Nadya Chadwick disorders (20 specified 28649 MICHAEL AGRAWAL sources.) hypothyroidism (01874) (Work Translations: Phone: [ Other specified ) hypothyroidism , Other specified hypothyroidism , Other specified hypothyroidism , NONTOXIC GOITER, UNSPECIFIED, Hypothyroidism , unspecified, Thyroiditis, unspecified] Other Pain in joint, Episodic Active ESPERANZA CORLEY [facility] Via non-traumatic shoulder [employer] [facility] joint region Hospital - disorders (3 [place] sources.) (05623) Spondylosis; Pain in Episodic Active SUNDAYJAMEEL CORLEY [facility] V ia intervertebral thoracic spine [employer] [facility] disc Hospital - disorders; [place] other back (15199) problems (3 sources.) Prolonged Post-term 09-27-2019 - Episodic Active AYAN PALM , [facility] Via (5 DO [facility] sources.) Hospital - [place] (72880) distress Prolonged 09-27-2019 - Episodic Active AYANSridhar CORONA [facility] Via and abnormal first stage DO [facility] of (of labor) Hospital - labor (5 [place] sources.) (44917) Other Pyrexia during 09-27-2019 - Episodic Active AYAN JAN GARCIA , [facility] Via complications labor, not DO [facility] of ; elsewhere Hospital - puerperium classified [place] affecting (44545) management of mother (5 sources.) OB-related Second degree 09-27-2019 - Episodic Active AYANSridhar CORONA [facility] Via trauma to perineal DO [facility] perineum and laceration [facility] vulva (5 during [place] sources.) delivery (23912) Other Single live 09-27-2019 - Episodic Active AYAN ARPITA , [facility] Via and DO [facility] delivery Hospital - including [place] normal (5 (06441) sources.) Past or Other Problems Problem Normalized Date Last Normalized Normalized Provider Jamin suarez Classification Problem(s) Recorded Problem Problem Sta tus Duration Residual 40 weeks no information no information AYAN PALM , Not Available codes; gestation of DO (18504) unclassified (3 sources.) Appendicitis Hyperplasia of Episodic Completed AYAN PALM , Not Available and other appendix DO (91518) appendiceal (lymphoid) conditions (1 source.) Other Pain in right Episodic Completed Nadya Chadwick non-traumatic wrist 09884 , LLC joint Translations: (63879) (Work disorders (15 [ Pain in Phone: sources.) right wrist, Pain in right ) wrist, Pain in right wrist] Other Peritoneal Episodic Completed AYAN ARPITA , Not Nena ilable gastrointestin adhesions DO (66084) al disorders (postoperative (1 source.) ) (postinfection ) Other female Unspecified Episodic Completed AYAN PALM , Not Available genital symptom DO (69591) disorders (1 associated source.) with female genital organs Procedures Procedure Normalized Procedure Procedure Result Performer Facility Date 09-23-2016 DELIVERY OF PRODUCTS no information no name [facility] (20149[facility] DELIVERY OF PRODUCTS no information no name Not Avail able (06131) OF CONCEPTION, EXTE 10-16-2017 Dexamethasone sodium no information [facility] (31756) 09-23-2016 EXTIRPATION OF MATTER no information no name [facility] Via [facility] FROM UTERUS, VIA [facility] (30590) EXTIRPATION OF MATTER no information no name Not Avai lable (50321) FROM UTERUS, VIA O 10-16-2017 Methylprednisolone 40 no information no [facility] inj [facility] (17012) 09-23-2016 Repair Perineum no information no name [facility] Via [facility] Muscle, Open Approach [facility] (45700) Repair Perineum no information no name Not Available (20353) Muscle, Open Approach 10-16-2017 Therapeutic no information no name [facility] ealth prophylactic/dx [facility] injection subq/im [place] (54191) Immunizations Normalized Immunization Date Notes Care Provider Facili ty Immunization DEPO MEDROL 40 MG/ML 10-16-2017 no [address] ([address]385) DEXAMETHASONE 4MG/ML 10-16-2017 no information [facility] (PER 1 MG) [address] [place] [address] (08389) influenza, 01-09-2018 no information [facility] injectable, [address] [place] [address] quadrivalent, [place] (00894) preservative free influenza, 04-10-2017 no information no name Not Availab le injectable, (77862) quadrivalent, preservative free influenza, seasonal, 01-09-2018 no information [facility] injectable [address] [place] [address] (17000) SINGLE IMMUNIZATION 01-09-2018 - no information [facility] ADMIN Translations: 01-09-[address] [place] [address] [ FLULAVAL QUAD [place] (80078) 0.5ML (6 MO ] Results Test Name Value Interpretation Reference Range Date Time Fa cility (Normalized) (Normalized) (Medline Reference) not yet categorized on 2019-09-27 WRISTBAND NUMBER [id number] (no code) 09-27-2019 PENDING L OCATION 17:15-0400 [facility] (76000) laboratory on 2019-09-27 ABO and Rh group OP (no code) 09-27-2019 PENDING L OCATION Nom (Bld) 17:20-0400 [facility] (46202) Bacteria LM Ql TRACE (no code) 09-27-2019 PENDING LOC ATION (Urine sed) 16:30-0400 [facility] (18169) Basophils (Bld) 0.0 10*3/uL (NEG) 0 - 0.3 10*3/uL 09-27-2019 PENDING LOCATION [#/Vol] 16:30-0400 [facility] (27970) Basophils/100 0 % (NEG) 0.5 - 1 % 09-27-2019 PENDING LOCATION WBC (Bld) 16:30-0400 [facility] (54345) Bilirubin Ql (U) Negative (no code) 09-27-2019 PENDING L OCATION 16:30-0400 [facility] (97726) Blood group Negative (no code) 09-27-2019 PENDING LOCATI ON antibody screen 17:34-0400 [facility] (91623) Ql Casts LM Ql NONE (no code) 09-27-2019 PENDING LOCATI ON (Urine sed) 16:30-0400 [facility] (51832) Clarity (U) CLEAR (no code) 09-27-2019 PENDING LOCATI ON 16:30-0400 [facility] (45664) Color (U) YELLOW (no code) 09-27-2019 PENDING LOCATI ON 16:30-0400 [facility] (70911) Crystals LM Ql NONE (no code) 09-27-2019 PENDING LOC ATION (Urine sed) 16:30-0400 [facility] (48625) Eosinophils 0.1 10*3/uL (NEG) 0.05 - 0.5 09-27-2019 PENDING LOCATION (Bld) [#/Vol] 10*3/uL 16:30-0400 [facility] (70751) Eosinophils/100 1 % (NEG) 1 - 4 % 09-27-2019 PENDIN G LOCATION WBC (Bld) 16:30-0400 [facility] (42107) Epithelial 2-5 (no code) 09-27-2019 PENDING LOCATI ON cells.squamous 16:30-0400 [facility] (91262) LM Ql (Urine sed) Erythrocyte 13.5 % (NEG) 11.6 - 14.6 % 09-27-2019 PENDIN G LOCATION distribution 16:30-0400 [facility] (49241) width (RBC) [Ratio] Glucose Auto Negative (no code) 09-27-2019 PENDING LOCAT ION test strip Ql 16:30-0400 [facility] (97772) (U) Hematocrit (Bld) 36 % (NEG) 36.1 - 50.3 % 09-27-2019 P ENDING LOCATION [Volume 16:30-0400 [facility] (88244) fraction] Hemoglobin (Bld) 12.3 g/dL (NEG) 12.1 - 17.2 g/dL 09-27-2019 PENDING LOCATION [Mass/Vol] 16:30-0400 [facility] (75159) Ketones Auto Negative (no code) 09-27-2019 PENDING LOCAT ION test strip Ql 16:30-0400 [facility] (42335) (U) Leukocyte Negative (no code) 09-27-2019 PENDING LOCATI ON esterase Test 16:30-0400 [facility] (45613) strip Ql (U) Lymphocytes 2.1 10*3/uL (NEG) 0.9 - 2.9 09-27-2019 PENDING LOCATION (Bld) [#/Vol] 10*3/uL 16:30-0400 [facility] (11009) Lymphocytes/100 24 % (NEG) 20 - 40 % 09-27-2019 PENDIN G LOCATION WBC (Bld) 16:30-0400 [facility] (13613) MCH (RBC) 32 pg (NEG) 27 - 31 pg 09-27-2019 PENDING LOC ATION [Entitic mass] 16:30-0400 [facility] (82336) MCHC (RBC) 34 g/dL (NEG) 32 - 36 g/dL 09-27-2019 PENDING LOCATION [Mass/Vol] 16:30-0400 [facility] (68064) MCV (RBC) 92 (NEG) 09-27-2019 PENDING LOCATI ON [Entitic vol] 16:30-0400 [facility] (96749) Monocytes (Bld) 0.5 10*3/uL (NEG) 0.3 - 0.9 09-27-2019 PEND ING LOCATION [#/Vol] 10*3/uL 16:30-0400 [facility] (32084) Monocytes/100 6 % (NEG) 2 - 8 % 09-27-2019 PENDING LOCATION WBC (Bld) 16:30-0400 [facility] (06484) Mucus Ql (Urine SMALL (A) 09-27-2019 PENDING LO CATION sed) 16:30-0400 [facility] (37203) Neutrophils 6.2 10*3/uL (NEG) 1.7 - 7 10*3/uL 09-27-2019 PE NDING LOCATION (Bld) [#/Vol] 16:30-0400 [facility] (70912) Neutrophils/100 70 % (NEG) 40 - 60 % 09-27-2019 PENDIN G LOCATION WBC (Bld) 16:30-0400 [facility] (53446) Nitrite Ql (U) Negative (no code) 09-27-2019 PENDING LOC ATION 16:30-0400 [facility] (98946) pH (U) 6.0 [pH] (no code) 4.6 - 8 [pH] 09-27-2019 PENDING L OCATION 16:30-0400 [facility] (51693) Platelet mean 11.1 (H) 09-27-2019 PENDING LOCA TION volume (Bld) 16:30-0400 [facility] (78118) [Entitic vol] Platelets (Bld) 166 10*3/uL (NEG) 150 - 450 09-27-2019 PEND ING LOCATION [#/Vol] 10*3/uL 16:30-0400 [facility] (10643) Protein Ql (U) Negative (no code) 09-27-2019 PENDING LOC ATION 16:30-0400 [facility] (95304) RBC (Bld) 3.90 10*6/uL (L) 4.2 - 6.1 09-27-2019 PENDING L OCATION [#/Vol] 10*6/uL 16:30-0400 [facility] (87976) RBC LM.HPF NONE (no code) 09-27-2019 PENDING LOCATI ON (Urine sed) 16:30-0400 [facility] (19731) [#/Area] RBC Ql (U) Negative (no code) 09-27-2019 PENDING LOCATI ON 16:30-0400 [facility] (49071) Specific gravity 1.020 (no code) 09-27-2019 PENDING L OCATION (U) [Rel 16:30-0400 [facility] (08005) density] Urinalysis NO (no code) 09-27-2019 PENDING LOCATI ON complete W 16:30-0400 [facility] (78332) Reflex Culture panel - Urine Urobilinogen (U) 0.2 mg/dL (no code) 09-27-2019 PENDING L OCATION [Mass/Vol] 16:30-0400 [facility] (27103) WBC (Bld) 8.8 10*3/uL (NEG) 3.5 - 10.5 09-27-2019 PENDING L OCATION [#/Vol] 10*3/uL 16:30-0400 [facility] (14733) WBC LM.HPF NONE (no code) 09-27-2019 PENDING LOCATI ON (Urine sed) 16:30-0400 [facility] (69268) [#/Area] laboratory on 2019-02-04 HBV surface Ag Negative (no code) 02-04-2019 [facility] (00 000) IA Ql 06:10-0400 HCV Ab 0.1 (no code) 02-04-2019 [facility] (72896 ) Signal/Cutoff IA 11:10-0400 [Rel units/Vol] Reagin Ab RPR Ql Non Reactive (no code) 02-04-2019 [facility] (95543) (S) 04:21-0400 Rubella virus 4.05 (no code) 02-04-2019 [facility] (000 00) IgG Qn (S) 21:16-0400 laboratory on 2018-12-25 Beta HCG Negative (N) [facility] ( test) [facility] (90052) other on 2018-08-06 Estrogen 79 (no code) 08-06-2018 [facility] (62243 ) [Mass/Vol] 19:14-0400 other on 2018-08-05 Follitropin Qn 2.0 m[IU]/mL (no code) 08-05-2018 [facility] (0 0000) 02:10-0400 Lutropin Qn 3.0 m[IU]/mL (no code) 08-05-2018 [facility] (0000 0) 02:180400 Progesterone 0.1 ng/mL (no code) 08-05-2018 [facility] (0000 0) [Mass/Vol] 02:04-0400 imm/path on 2017-03-26 Thyroperoxidase [IU]/mL (H) 0 - 35 [IU]/mL 03-26-2017 N ot Available Ab Qn 10:38-0500 (95866) Vital Signs Vital Sign Value Interpretation Reference Date Time Care Prov ider Facility (Normalized) (Normalized) Range BMI (Body Mass 31.1 kg/m2 (no code) 15 - 25 kg/m2 08-05-2018 Supriya maicol Chadwick Index) 02:00 MICHAEL Disla MD (96553) (Work Phone: ) BMI (Body Mass 29.3 kg/m2 (no code) 15 - 25 kg/m2 01-28-2018 Supriya maicol Chadwick Index) 13:00 MICHAEL Disla MD ([id number]) (Work Phone: ) BMI (Body Mass 28.7 kg/m2 (no code) 15 - 25 kg/m2 11-12-2017 Supriya maicol Chadwick Index) 13:00-399 MICHAEL Disla MD (33865) (Work Phone: ) BMI (Body Mass 30.66 kg/m2 (no code) 15 - 25 kg/m2 10-16-2017 [facility] Community Index) 10:40-[id number] [place] [address] (95100) BMI (Body Mass 29.7 kg/m2 (no code) 15 - 25 kg/m2 09-16-2017 Supriya maicol Chadwick Index) 13:00 MICHAEL Disla MD (19574) (Work Phone: ) BMI (Body Mass 30.9 kg/m2 (no code) 15 - 25 kg/m2 06-30-2017 Supriya maicol Chadwick Index) 13:00 MICHAEL Disla MD (81969) (Work Phone: ) BMI (Body Mass 31.1 kg/m2 (no code) 15 - 25 kg/m2 02-14-2017 Supriya Chadwick Index) 13:762 MICHAEL AGRAWAL (71845) (Work Phone: ) Body 98.9 [degF] (no code) 97.8 - 99.0 10-16-2017 [facility] Temperature [degF] 10:40-0400 POLLY [address] [facility] (71227) Body weight 72 kg (N) kg 08-05-2018 Nadya Chadwick 02:762 MICHAEL AGRAWAL (08963) (Work Phone: ) Body weight 68 kg (N) kg 01-28-2018 Nadya Chadwick 02:762 MICHAEL AGRAWAL (81654) (Work Phone: ) Body weight 67 kg (N) kg 11-12-2017 Nadya Chadwick 02:762 MICHAEL AGRAWAL (99490) (Work Phone: ) Body weight 69 kg (N) kg 09-16-2017 Nadya Chadwick 02:762 MICHAEL AGRAWAL (70098) (Work Phone: ) Body weight 72 kg (N) kg 06-30-2017 Nadya Chadwick 02:762 MICHAEL AGRAWAL (63843) (Work Phone: ) Body weight 72 kg (N) kg 02-14-2017 Nadya Chadwick 02:762 MICHAEL AGRAWAL (33023) (Work Phone: ) Blood Pressure 120/ (N,N) Systolic: 90 - 08-05-2018 Nadya Chadwick 80mm[Hg] 120 mm[Hg] 02:MICHAEL Fenton MD ([id number]) (Work Diastolic: 60 Phone: - 80 mm[Hg] ) Blood Pressure 136/ (N,N) Systolic: 90 - 01-28-2018 Nadya Chadwick 84mm[Hg] 120 mm[Hg] 13:[id number] MICHAEL AGRAWAL (84354) (Work Diastolic: 60 Phone: - 80 mm[Hg] ) Blood Pressure 124/ (N,N) Systolic: 90 - 11-12-2017 Nadya Chadwick 76mm[Hg] 119 mm[Hg] 13:[id number] (15661) (Work Diastolic: 60 Phone: - 79 mm[Hg] ) Blood Pressure 132/ (N,N) Systolic: - 09-16-2017 Nadya Chadwick 74mm[Hg] 119 mm[Hg] 13:[id number] (90613) (Work Diastolic: 60 Phone: - 79 mm[Hg] ) Blood Pressure 122/ (N,N) Systolic: 06-30-2017 Nadya Chadwick 80mm[Hg] 119 mm[Hg] 13:[id number] [facility] (36493) (Work Diastolic: 60 Phone: - 79 mm[Hg] ) Blood Pressure 136/ (N,N) Systolic: 02-14-2017 Nadya Chadwick 78mm[Hg] 119 mm[Hg] 13:[id number] [facility] ([id number]) (Work Diastolic: 60 Phone: - 79 mm[Hg] ) Height 152 cm (N) cm 08-05-2018 Nadya Chadwick 02:000400 80088[employer] (71343) (Work Phone: ) Height 152 cm (N) cm 01-28-2018 Nadya Chadwick 13:00-0400 [employer] (67925) (Work Phone: ) Height 152 cm (N) cm 11-12-2017 Nadya Chadwick 13:000400 67811 MICHAEL AGRAWAL (38950) (Work Phone: ) Height 152.4 cm (no code) cm 10-16-2017 ANNELISE bennett 10:40-0400 MATIAS [address] [facility] (41967) Height 152 cm (N) cm 09-16-2017 Nadya Chadwick 13:00-04059632MICHAEL Finch MD (55032) (Work Phone: ) Height 152 cm (N) cm 06-30-2017 Nadya Chadwick 13:[id number] Fenton MD ([id number]) (Work Phone: ) Height 152 cm (N) cm 02-14-2017 Nadya Chadwick 13:[id number] MICHAEL AGRAWAL ([id number]) (Work Phone: ) Pulse (Heart 76 /min (N) 60 - 100 /min 08-05-2018 Nadya Garcia Netta Rate) 02:00-399 MICHAEL Disla MD ([id number]) (Work Phone: ) Pulse (Heart 96 /min (N) 60 - 100 /min 01-28-2018 Nadya Garcia [place] Rate) 13:00-040 MICHAEL Disla MD ([id number]) (Work Phone: ) Pulse (Heart 87 /min (N) 60 - 100 /min 11-12-2017 Nadya Rodriguezy [place] Rate) 13:00-040 MICHAEL Disla MD ([id number]) (Work Phone: ) Pulse (Heart 80 /min (N) 60 - 100 /min 09-16-2017 Nadya Garcia [place] Rate) 13:00-040 MICHAEL Disla MD ([id number]) (Work Phone: ) Pulse (Heart 83 /min (N) 60 - 100 /min 06-30-2017 Nadya Rodriguezy [place] Rate) 13:00-040 MICHAEL Disla MD ([id number]) (Work Phone: ) Pulse (Heart 66 /min (N) 60 - 100 /min 02-14-2017 Nadya Chadwick Rate) 13:00 [id number] [facility] ([id number]) (Work Phone: ) Pulse Oximetry 94 % (N) 95 - 100 % 08-05-2018 Nadya Chadwick 02:000400 [id number] [facility] ([id number]) (Work Phone: ) Pulse Oximetry 99 % (N) 95 - 100 % 01-28-2018 Nadya Chadwick 13:[id number] MD [facility] ([id number]) (Work Phone: ) Pulse Oximetry 98 % (N) 95 - 100 % 11-12-2017 Nadya Chadwick 13:[id number] MD [facility] ([id number]) (Work Phone: ) Pulse Oximetry 98 % (no code) 95 - 100 % 10-16-2017 [facility] 10:40-[id number] [place] [address] ([id number]) Pulse Oximetry 98 % (N) 95 - 100 % 09-16-2017 Nadya Chadwick 13:000400 [id number] [facility] ([id number]) (Work Phone: ) Pulse Oximetry 96 % (N) 95 - 100 % 06-30-2017 Nadya Chadwick 13:000400 [id number] [facility] ([id number]) (Work Phone: ) Pulse Oximetry 99 % (N) 95 - 100 % 02-14-2017 Nadya Chadwick 13:000400 [id number] ([id number]) (Work Phone: ) Weight 68 kg (N) kg 01-28-2018 Nadya Chadwick 13:[id number] AGRAWAL [facility] ([id number]) (Work Phone: ) Weight 67 kg (N) kg 11-12-2017 Nadya Chadwick 13:000400 [id number] [facility] ([id number]) (Work Phone: ) Weight 71.22 kg (no code) kg 10-16-2017 ANNELISE bennett 10:40-0400 POLLY [address]23[address] [facility] ([id number]) Weight 69 kg (N) kg 09-16-2017 Nadya Chadwick 13:00040 [id number] MICHAEL AGRAWAL ([id number]) (Work Phone: ) Weight 72 kg (N) kg 06-30-2017 Nadya Chadwick 13:00040 [id number] MICHAEL AGRAWAL ([id number]) (Work Phone: ) Weight 72 kg (N) kg 02-14-2017 Nadya Chadwick 13:00-0400 [id number] MICHAEL AGRAWAL ([id number]) (Work Phone: ) Interventions No Information Plan of Treatment Normalized Care Care Detail Care Activity Date Care Provider F acility Activity Development of care no information 11-12-2017 Nadya Villarreal [phone] Shravan Chadwick MD, plan LLC ([id number]) (Work Phone: ) Development of care Anxiety/depression-u 09-16-[place] [id number] Shravan Chadwick MD, plan ncontrolled - the [facility] ([id number]) (Work patient has Phone: uncontrolled anxiety ) and will benefit from an SSRI on a daily basis to attempt control of the symptoms of anxiety (tachycardia, overwhelming sensations, stress, insomnia, etc). Pt is aware of the risks and benefits of treatment with the above medications.ADHD - medication working well for treatment of the pt's medical condition and the pt is to continue with current medication for treatment of the symptoms of ADHD. The pt is to call if they notice palpitations, rapid weight loss, severe insomnia that does improve. Pt is to call for any acute concerns, or if the medication does not seem to be working for improvement of the ADHD symptoms. Pt is aware of risk associated with medication use, and the danger of the medication if in the hands of someone to whom the medication was not prescribed. Development of care Hypothyroidism - pt 06-30-2017 Nadya martinez [address] Shravan Chadwick MD, plan is continue with LLC ([id number]) (Work current medication, Phone: will monitor pt to ) signs or symptoms of lack of adequate supplementation. Pt is to continue with current dose of medication unless directed otherwise. Check labs at regular intervals wither q 3 months or q 6 months based on previous levels of control.Wrist fullness/pain - referral to dr. simon marin RE - right wrist pain, fullness.ADHD - refilled Adderall Development of care Hypothyroidism - new 02-14-[place] [address] Shravan Chadwick MD, plan with dysphagia, [facility] ([id number]) (Work dysphonia, and Phone: fatigue - enlarged ) thyroid noted - will order thyroid US, pt is continue with current medication, will monitor pt to signs or symptoms of lack of adequate supplementation. Pt is to continue with current dose of medication unless directed otherwise. Check labs at regular intervals wither q 3 months or q 6 months based on previous levels of control. Development of care Hypothyroidism - pt 01-28-2018 Nadya martinez [address] Shravan Chadwick MD, plan is continue with [facility] ([id number]) (Work current medication, Phone: will monitor pt to ) signs or symptoms of lack of adequate supplementation. Pt is to continue with current dose of medication unless directed otherwise. Check labs at regular intervals wither q 3 months or q 6 months based on previous levels of control.ADHD - refilled AdderallDepression - continue with lexapro Development of care Well Adult - pt was 08-05-2018 Nadya martinez [id number] Shravan Chadwick MD, plan counseled about [facility] ([id number]) (Work diet, exercise, and Phone: encouraged to follow ) a heart healthy diet and increase activity level. The patient was instructed to RTC yearly for well adult exams and PRN for acute illnesses. The pt was also instructed to have yearly labs for check of cholesterol, thyroid, chem panel, CBC, and renal functioning.Anxiety - the patient has uncontrolled anxiety and will benefit from an SNRI/SSRI on a daily basis to attempt control of the symptoms of anxiety. Patient referral Notes: Patient 07-09-2017 Nadya Villarreal [id number] Shravan Chadwick MD, informed. She plans [facility] ([id number]) (Work to call and Phone: reschedule. Referral ) info faxed to [phone]. - Provider: External, Ordering Provider - Address:, , , Patient referral Notes: Referral - no information Nadya Villarreal [address] Shravan Chadwick MD, Provider: External, [facility] ([id number]) (Work Ordering Provider - Phone: Address:, , , ) Referral Order Goal: Referral Order no information Nadya Villarreal [address] Shravan Chadwick MD, Notes: [facility] ([id number]) (Work Phone: ) Goals No Information Social History Normalized Code Original Code Date Value Marital status Marital status 02-14-2017 - 06-30-2017 Mario jaramillo Alcohol history Alcohol history no information Alcohol histo ry Functional Status The data below is from unstructured sourcesNo Functional Status dataNo Functional Status dataNo Functional Status dataNo Functional Status dataNo Functional Status dataNo Functional Status dataNo Functional Status dataNo Functional Status dataNo Functional Status data Mental Status No Information Encounters Encounter Normalized Encounter Encounter Diagnosis Care Provi esvin Organization Date Type 01-09-2018 (imm/inj) Encounter for ANNELISE MATIAS (no [facility] (no Immunization/injection immunization phone) phone) 10-16-2017 (SD) Same Day Allergic contact ANNELISE MATIAS (no [facility] (no dermatitis due to phone) phone) plants, except food 09-27-2019 Evaluation and no information AYAN PALM DO (no [facility] management of phone) [facility] inpatient (no phone) 09-22-2016 Evaluation and no information no name no organ ization name - management of 09-24-2016 inpatient 09-22-2016 Evaluation and no information AYAN PALM DO (no [facility] - management of phone) [facility] 09-24-2016 inpatient (no phone) 02-14-2017 Office outpatient new Other specified Nadya Villarreal (no [facility] - 45 minutes hypothyroidism phone) (no phone) 02-14-2017 - 02-14-2017 01-28-2018 Office outpatient Other specified Shravan Chadwick (n o [facility] - visit 15 minutes hypothyroidism phone) (no ph one) 01-28-2018 - 01-28-2018 11-12-2017 Office outpatient Attention-deficit Shravan Chadwick (no [facility] - visit 15 minutes hyperactivity phone) (no frances ne) 11-12-2017 disorder, combined - type 11-12-2017 09-16-2017 Office outpatient Generalized anxiety Prisca Tobar ner (no [facility] - visit 15 minutes disorder phone) (no phone ) 09-16-2017 - 09-16-2017 06-30-2017 Office outpatient Other specified Shravan Chadwick (n o [facility] - visit 25 minutes hypothyroidism phone) (no ph one) 06-30-2017 - 06-30-2017 10-16-2017 Patient encounter no information no name no or ganization name 06-13-2017 Patient encounter no information no name no or ganization name - 06-13-2017 NEGATED Patient encounter no information no name no or ganization name 03-24-2017 - 03-24-2017 NEGATED Patient encounter no information no name no or ganization name 02-21-2017 NEGATED Patient encounter no information no name no or ganization name 06-03-2019 Patient encounter no information GERTRUDE PARKS [facility] procedure (no phone) [facility] (no phone) 02-09-2019 Patient encounter no information no name no or ganization name procedure 02-03-2019 Patient encounter no information no name no or ganization name - procedure 02-03-2019 12-25-2018 Patient encounter no information no name no or ganization name procedure 08-04-2018 Patient encounter no information no name no or ganization name - procedure 08-04-2018 02-21-2017 Patient encounter no information NADYA Perez [facility] procedure (no phone) [facility] (no phone) 09-22-2016 Patient encounter no information no name no or ganization name - procedure 09-24-2016 11-16-2013 Patient encounter no information no name no or ganization name procedure 11-16-2013 Patient encounter no information no name no or ganization name procedure 12-13-2011 Patient encounter no information no name no or ganization name - procedure 12-13-2011 12-09-2011 Patient encounter no information no name no or ganization name procedure 08-05-2018 Periodic preventive Encounter for general Shravan cobb (no [facility] med est patient 18-39 adult medical phone) (no phon e) yrs examination without abnormal findings 08-05-2018 Encounter for general Encounter for general no name no organization name adult medical adult medical examination without examination without abnormal findings abnormal findings 08-05-2018 Encounter for general Encounter for general no name no organization name adult medical adult medical examination without examination without abnormal findings abnormal findings no information Encounter for dental no name no organi zation name examination and cleaning without abnormal findings no information Pre-procedural no name no organization name laboratory examination Medical Equipment No Information Payers Normalized Payer Value Unknown [id number]) Summary Purpose Interface ExchangeInterface ExchangeInterface ExchangeInterface ExchangeInterface Exchange Family History Family History data not foundFamily History data not foundFamily History data not foundFamily History data not foundFamily History data not found Assessments Condition Codes Effectiv e Dates Major depressive disorder, recurrent, mild ICD-10: F33.0 ICD-9: 296.31 11/12/2017 Generalized anxiety disorder ICD-10: F41.1 ICD-9: 300.02 11/12/2017 Attention-deficit hyperactivity disorder, combined typ e ICD- 10: F90.2 ICD-9: 314.01 11/12/2017 Other specified hypothyroidism ICD-1 0: E03.8 ICD-9: 244.8 06/30/2017 Pain in right wrist ICD-10: M25.531 ICD-9: 719.43 06/30/2017 Condition Codes Effectiv e Dates Attention-deficit hyperactivity disorder, combined typ e ICD- 10: F90.2 ICD-9: 314.01 01/28/2018 Major depressive disorder, recurrent, mild ICD-10: F33.0 ICD-9: 296.31 01/28/2018 Generalized anxiety disorder ICD-10: F41.1 ICD-9: 300.02 01/28/2018 Other specified hypothyroidism ICD-1 0: E03.8 ICD-9: 244.8 01/28/2018 Pain in right wrist ICD-10: M25.531 ICD-9: 719.43 06/30/2017 Condition Codes Effectiv e Dates Generalized anxiety disorder ICD-10: F41.1 ICD-9: 300.02 08/05/2018 Encounter for general adult medical exam ination without abnormal findings ICD-10: Z00.00 ICD-9: V70.0 08/05/2018 Attention-deficit hyperactivity disorder, combined typ e ICD- 10: F90.2 ICD-9: 314.01 01/28/2018 Major depressive disorder, recurrent, mild ICD-10: F33.0 ICD-9: 296.31 01/28/2018 Other specified hypothyroidism ICD-1 0: E03.8 ICD-9: 244.8 01/28/2018 Pain in right wrist ICD-10: M25.531 ICD-9: 719.43 06/30/2017 Condition Codes Effectiv e Dates Encounter for general adult medical exam ination without abnormal findings ICD-10: Z00.00 ICD-9: V70.0 08/05/2018 Generalized anxiety disorder ICD-10: F41.1 ICD-9: 300.02 08/05/2018 Attention-deficit hyperactivity disorder, combined typ e ICD- 10: F90.2 ICD-9: 314.01 01/28/2018 Major depressive disorder, recurrent, mild ICD-10: F33.0 ICD-9: 296.31 01/28/2018 Other specified hypothyroidism ICD-1 0: E03.8 ICD-9: 244.8 01/28/2018 Pain in right wrist ICD-10: M25.531 ICD-9: 719.43 06/30/2017 Review of System System Result Effective Dates Constitutional No recent illness 11/12/2017 Constitutional No anorexia 11/12/2017 Constitutional No night sweats 11/12/2017 Constitutional No chills 11/12/2017 Constitutional No diaphoresis 11/12/2017 Constitutional fatigue 0 11/12/2017 Constitutional No fever 11/12/2017 Constitutional insomnia 11/12/2017 Constitutional No malaise 11/12/2017 Eyes No eye discharge Eyes No eye erythema 04/2017 Ears/Nose/Throat/Neck No dizziness 11/12/2017 Ears/Nose/Throat/Neck No headache 11/12/2017 Cardiovascular No chest pain/pressure 11/12/2017 Cardiovascular No dyspnea 11/12/2017 Respiratory No cough 04/2017 Gastrointestinal No abdominal pain 11/12/2017 Gastrointestinal No constipation 11/12/2017 Gastrointestinal No diarrhea 11/12/2017 Dermatologic No rash 04/2017 Neurologic No alteration of consciousness 11/12/2017 Neurologic No dizziness 11/12/2017 Psychiatric anxiety 08/0 04/2017 Psychiatric depression 0 11/12/2017 Constitutional weight loss 11/12/2017 Constitutional No recent illness 09/16/2017 Constitutional No anorexia 09/16/2017 Constitutional No night sweats 09/16/2017 Constitutional No chills 09/16/2017 Constitutional No diaphoresis 09/16/2017 Constitutional fatigue 0 09/16/2017 Constitutional No fever 09/16/2017 Constitutional insomnia 09/16/2017 Constitutional No malaise 09/16/2017 Constitutional No weight loss 09/16/2017 Constitutional No weight gain 09/16/2017 Eyes No eye discharge Eyes No eye erythema 08/2017 Ears/Nose/Throat/Neck No dizziness 09/16/2017 Ears/Nose/Throat/Neck No headache 09/16/2017 Cardiovascular No chest pain/pressure 09/16/2017 Cardiovascular No dyspnea 09/16/2017 Respiratory No cough 08/2017 Gastrointestinal No abdominal pain 09/16/2017 Gastrointestinal No constipation 09/16/2017 Gastrointestinal No diarrhea 09/16/2017 Genitourinary/Nephrology No dysuria 09/16/2017 Musculoskeletal No joint complaint 09/16/2017 Dermatologic No rash 08/2017 Neurologic No dizziness 09/16/2017 Neurologic No alteration of consciousness 09/16/2017 Psychiatric anxiety 06/0 08/2017 Psychiatric depression 0 09/16/2017 Endocrine No dry or coarse skin 09/16/2017 Constitutional fatigue 0 06/30/2017 Ears/Nose/Throat/Neck nasal allergies 06/30/2017 Musculoskeletal joint complaint 06/30/2017 Constitutional No recent illness 06/30/2017 Constitutional No chills 06/30/2017 Constitutional No diaphoresis 06/30/2017 Constitutional No fever 06/30/2017 Eyes No blindness 2017 Ears/Nose/Throat/Neck No nasal discharge 06/30/2017 Cardiovascular No chest pain/pressure 06/30/2017 Cardiovascular No dyspnea 06/30/2017 Respiratory No chest congestion 06/30/2017 Respiratory No cough Gastrointestinal No abdominal pain 06/30/2017 Gastrointestinal No constipation 06/30/2017 Gastrointestinal No diarrhea 06/30/2017 Gastrointestinal No hematochezia 06/30/2017 Gastrointestinal No melena 06/30/2017 Gastrointestinal No nausea 06/30/2017 Gastrointestinal No vomiting 06/30/2017 Dermatologic No rash Neurologic No alteration of consciousness 06/30/2017 Neurologic No mental status change 06/30/2017 Constitutional No recent illness 02/14/2017 Constitutional No chills 02/14/2017 Constitutional No diaphoresis 02/14/2017 Constitutional No fever 02/14/2017 Constitutional fatigue 1 04/16/2016 Eyes No eye erythema 06/2016 Ears/Nose/Throat/Neck nasal allergies 02/14/2017 Ears/Nose/Throat/Neck No nasal discharge 02/14/2017 Cardiovascular No chest pain/pressure 02/14/2017 Cardiovascular No dyspnea 02/14/2017 Respiratory No cough 06/2016 Respiratory No chest congestion 02/14/2017 Gastrointestinal No abdominal pain 02/14/2017 Gastrointestinal No constipation 02/14/2017 Gastrointestinal No diarrhea 02/14/2017 Gastrointestinal No vomiting 02/14/2017 Gastrointestinal No nausea 02/14/2017 Gastrointestinal No melena 02/14/2017 Gastrointestinal No hematochezia 02/14/2017 Musculoskeletal joint complaint 02/14/2017 Dermatologic No rash 06/2016 Neurologic No alteration of consciousness 02/14/2017 Neurologic No mental status change 02/14/2017 System Result Effective Dates Constitutional No recent illness 01/28/2018 Constitutional No chills 01/28/2018 Constitutional No diaphoresis 01/28/2018 Constitutional fatigue 1 Constitutional No fever 01/28/2018 Eyes No blindness 2017 Ears/Nose/Throat/Neck nasal allergies 01/28/2018 Ears/Nose/Throat/Neck No nasal discharge 01/28/2018 Cardiovascular No chest pain/pressure 01/28/2018 Cardiovascular No dyspnea 01/28/2018 Respiratory No chest congestion 01/28/2018 Respiratory No cough Gastrointestinal No abdominal pain 01/28/2018 Gastrointestinal No constipation 01/28/2018 Gastrointestinal No diarrhea 01/28/2018 Gastrointestinal No hematochezia 01/28/2018 Gastrointestinal No melena 01/28/2018 Gastrointestinal No nausea 01/28/2018 Gastrointestinal No vomiting 01/28/2018 Musculoskeletal joint complaint 01/28/2018 Dermatologic No rash Neurologic No alteration of consciousness 01/28/2018 Neurologic No mental status change 01/28/2018 Constitutional No recent illness 11/12/2017 Constitutional No anorexia 11/12/2017 Constitutional No night sweats 11/12/2017 Constitutional No chills 11/12/2017 Constitutional No diaphoresis 11/12/2017 Constitutional fatigue 0 11/12/2017 Constitutional No fever 11/12/2017 Constitutional insomnia 11/12/2017 Constitutional No malaise 11/12/2017 Eyes No eye discharge Eyes No eye erythema 04/2017 Ears/Nose/Throat/Neck No dizziness 11/12/2017 Ears/Nose/Throat/Neck No headache 11/12/2017 Cardiovascular No chest pain/pressure 11/12/2017 Cardiovascular No dyspnea 11/12/2017 Respiratory No cough 04/2017 Gastrointestinal No abdominal pain 11/12/2017 Gastrointestinal No constipation 11/12/2017 Gastrointestinal No diarrhea 11/12/2017 Dermatologic No rash 04/2017 Neurologic No alteration of consciousness 11/12/2017 Neurologic No dizziness 11/12/2017 Psychiatric anxiety 08/0 04/2017 Psychiatric depression 0 11/12/2017 Constitutional weight loss 11/12/2017 Constitutional No recent illness 09/16/2017 Constitutional No anorexia 09/16/2017 Constitutional No night sweats 09/16/2017 Constitutional No chills 09/16/2017 Constitutional No diaphoresis 09/16/2017 Constitutional fatigue 0 09/16/2017 Constitutional No fever 09/16/2017 Constitutional insomnia 09/16/2017 Constitutional No malaise 09/16/2017 Constitutional No weight loss 09/16/2017 Constitutional No weight gain 09/16/2017 Eyes No eye discharge Eyes No eye erythema 08/2017 Ears/Nose/Throat/Neck No dizziness 09/16/2017 Ears/Nose/Throat/Neck No headache 09/16/2017 Cardiovascular No chest pain/pressure 09/16/2017 Cardiovascular No dyspnea 09/16/2017 Respiratory No cough 08/2017 Gastrointestinal No abdominal pain 09/16/2017 Gastrointestinal No constipation 09/16/2017 Gastrointestinal No diarrhea 09/16/2017 Genitourinary/Nephrology No dysuria 09/16/2017 Musculoskeletal No joint complaint 09/16/2017 Dermatologic No rash 08/2017 Neurologic No dizziness 09/16/2017 Neurologic No alteration of consciousness 09/16/2017 Psychiatric anxiety 06/0 08/2017 Psychiatric depression 0 09/16/2017 Endocrine No dry or coarse skin 09/16/2017 Constitutional fatigue 0 06/30/2017 Ears/Nose/Throat/Neck nasal allergies 06/30/2017 Musculoskeletal joint complaint 06/30/2017 Constitutional No recent illness 06/30/2017 Constitutional No chills 06/30/2017 Constitutional No diaphoresis 06/30/2017 Constitutional No fever 06/30/2017 Eyes No blindness 2017 Ears/Nose/Throat/Neck No nasal discharge 06/30/2017 Cardiovascular No chest pain/pressure 06/30/2017 Cardiovascular No dyspnea 06/30/2017 Respiratory No chest congestion 06/30/2017 Respiratory No cough Gastrointestinal No abdominal pain 06/30/2017 Gastrointestinal No constipation 06/30/2017 Gastrointestinal No diarrhea 06/30/2017 Gastrointestinal No hematochezia 06/30/2017 Gastrointestinal No melena 06/30/2017 Gastrointestinal No nausea 06/30/2017 Gastrointestinal No vomiting 06/30/2017 Dermatologic No rash Neurologic No alteration of consciousness 06/30/2017 Neurologic No mental status change 06/30/2017 Constitutional No recent illness 02/14/2017 Constitutional No chills 02/14/2017 Constitutional No diaphoresis 02/14/2017 Constitutional No fever 02/14/2017 Constitutional fatigue 1 04/16/2016 Eyes No eye erythema 06/2016 Ears/Nose/Throat/Neck nasal allergies 02/14/2017 Ears/Nose/Throat/Neck No nasal discharge 02/14/2017 Cardiovascular No chest pain/pressure 02/14/2017 Cardiovascular No dyspnea 02/14/2017 Respiratory No cough 06/2016 Respiratory No chest congestion 02/14/2017 Gastrointestinal No abdominal pain 02/14/2017 Gastrointestinal No constipation 02/14/2017 Gastrointestinal No diarrhea 02/14/2017 Gastrointestinal No vomiting 02/14/2017 Gastrointestinal No nausea 02/14/2017 Gastrointestinal No melena 02/14/2017 Gastrointestinal No hematochezia 02/14/2017 Musculoskeletal joint complaint 02/14/2017 Dermatologic No rash 06/2016 Neurologic No alteration of consciousness 02/14/2017 Neurologic No mental status change 02/14/2017 System Result Effective Dates Constitutional No recent illness 08/05/2018 Constitutional No chills 08/05/2018 Constitutional No diaphoresis 08/05/2018 Constitutional fatigue 0 08/05/2018 Constitutional No fever 08/05/2018 Eyes No blindness 2018 Ears/Nose/Throat/Neck nasal allergies 08/05/2018 Ears/Nose/Throat/Neck No nasal discharge 08/05/2018 Cardiovascular No chest pain/pressure 08/05/2018 Cardiovascular No dyspnea 08/05/2018 Respiratory No chest congestion 08/05/2018 Respiratory No cough Gastrointestinal No abdominal pain 08/05/2018 Gastrointestinal No constipation 08/05/2018 Gastrointestinal No diarrhea 08/05/2018 Gastrointestinal No hematochezia 08/05/2018 Gastrointestinal No melena 08/05/2018 Gastrointestinal No nausea 08/05/2018 Gastrointestinal No vomiting 08/05/2018 Dermatologic No rash Neurologic No alteration of consciousness 08/05/2018 Neurologic No mental status change 08/05/2018 Psychiatric anxiety 07/14 Musculoskeletal No joint complaint 08/05/2018 Musculoskeletal No stiffness 08/05/2018 Constitutional No recent illness 01/28/2018 Constitutional No chills 01/28/2018 Constitutional No diaphoresis 01/28/2018 Constitutional fatigue 1 Constitutional No fever 01/28/2018 Eyes No blindness 2017 Ears/Nose/Throat/Neck nasal allergies 01/28/2018 Ears/Nose/Throat/Neck No nasal discharge 01/28/2018 Cardiovascular No chest pain/pressure 01/28/2018 Cardiovascular No dyspnea 01/28/2018 Respiratory No chest congestion 01/28/2018 Respiratory No cough Gastrointestinal No abdominal pain 01/28/2018 Gastrointestinal No constipation 01/28/2018 Gastrointestinal No diarrhea 01/28/2018 Gastrointestinal No hematochezia 01/28/2018 Gastrointestinal No melena 01/28/2018 Gastrointestinal No nausea 01/28/2018 Gastrointestinal No vomiting 01/28/2018 Musculoskeletal joint complaint 01/28/2018 Dermatologic No rash Neurologic No alteration of consciousness 01/28/2018 Neurologic No mental status change 01/28/2018 Constitutional No recent illness 11/12/2017 Constitutional No anorexia 11/12/2017 Constitutional No night sweats 11/12/2017 Constitutional No chills 11/12/2017 Constitutional No diaphoresis 11/12/2017 Constitutional fatigue 0 11/12/2017 Constitutional No fever 11/12/2017 Constitutional insomnia 11/12/2017 Constitutional No malaise 11/12/2017 Eyes No eye discharge Eyes No eye erythema 04/2017 Ears/Nose/Throat/Neck No dizziness 11/12/2017 Ears/Nose/Throat/Neck No headache 11/12/2017 Cardiovascular No chest pain/pressure 11/12/2017 Cardiovascular No dyspnea 11/12/2017 Respiratory No cough 04/2017 Gastrointestinal No abdominal pain 11/12/2017 Gastrointestinal No constipation 11/12/2017 Gastrointestinal No diarrhea 11/12/2017 Dermatologic No rash 04/2017 Neurologic No alteration of consciousness 11/12/2017 Neurologic No dizziness 11/12/2017 Psychiatric anxiety 08/0 04/2017 Psychiatric depression 0 11/12/2017 Constitutional weight loss 11/12/2017 Constitutional No recent illness 09/16/2017 Constitutional No anorexia 09/16/2017 Constitutional No night sweats 09/16/2017 Constitutional No chills 09/16/2017 Constitutional No diaphoresis 09/16/2017 Constitutional fatigue 0 09/16/2017 Constitutional No fever 09/16/2017 Constitutional insomnia 09/16/2017 Constitutional No malaise 09/16/2017 Constitutional No weight loss 09/16/2017 Constitutional No weight gain 09/16/2017 Eyes No eye discharge Eyes No eye erythema 08/2017 Ears/Nose/Throat/Neck No dizziness 09/16/2017 Ears/Nose/Throat/Neck No headache 09/16/2017 Cardiovascular No chest pain/pressure 09/16/2017 Cardiovascular No dyspnea 09/16/2017 Respiratory No cough 08/2017 Gastrointestinal No abdominal pain 09/16/2017 Gastrointestinal No constipation 09/16/2017 Gastrointestinal No diarrhea 09/16/2017 Genitourinary/Nephrology No dysuria 09/16/2017 Musculoskeletal No joint complaint 09/16/2017 Dermatologic No rash 08/2017 Neurologic No dizziness 09/16/2017 Neurologic No alteration of consciousness 09/16/2017 Psychiatric anxiety 06/0 08/2017 Psychiatric depression 0 09/16/2017 Endocrine No dry or coarse skin 09/16/2017 Constitutional fatigue 0 06/30/2017 Ears/Nose/Throat/Neck nasal allergies 06/30/2017 Musculoskeletal joint complaint 06/30/2017 Constitutional No recent illness 06/30/2017 Constitutional No chills 06/30/2017 Constitutional No diaphoresis 06/30/2017 Constitutional No fever 06/30/2017 Eyes No blindness 2017 Ears/Nose/Throat/Neck No nasal discharge 06/30/2017 Cardiovascular No chest pain/pressure 06/30/2017 Cardiovascular No dyspnea 06/30/2017 Respiratory No chest congestion 06/30/2017 Respiratory No cough Gastrointestinal No abdominal pain 06/30/2017 Gastrointestinal No constipation 06/30/2017 Gastrointestinal No diarrhea 06/30/2017 Gastrointestinal No hematochezia 06/30/2017 Gastrointestinal No melena 06/30/2017 Gastrointestinal No nausea 06/30/2017 Gastrointestinal No vomiting 06/30/2017 Dermatologic No rash Neurologic No alteration of consciousness 06/30/2017 Neurologic No mental status change 06/30/2017 Constitutional No recent illness 02/14/2017 Constitutional No chills 02/14/2017 Constitutional No diaphoresis 02/14/2017 Constitutional No fever 02/14/2017 Constitutional fatigue 1 04/16/2016 Eyes No eye erythema 06/2016 Ears/Nose/Throat/Neck nasal allergies 02/14/2017 Ears/Nose/Throat/Neck No nasal discharge 02/14/2017 Cardiovascular No chest pain/pressure 02/14/2017 Cardiovascular No dyspnea 02/14/2017 Respiratory No cough 06/2016 Respiratory No chest congestion 02/14/2017 Gastrointestinal No abdominal pain 02/14/2017 Gastrointestinal No constipation 02/14/2017 Gastrointestinal No diarrhea 02/14/2017 Gastrointestinal No vomiting 02/14/2017 Gastrointestinal No nausea 02/14/2017 Gastrointestinal No melena 02/14/2017 Gastrointestinal No hematochezia 02/14/2017 Musculoskeletal joint complaint 02/14/2017 Dermatologic No rash 06/2016 Neurologic No alteration of consciousness 02/14/2017 Neurologic No mental status change 02/14/2017 Physical Exam Exam Name System Name It em Name Status Result Effective Dates Notes Full Exam - General 1994 Constitutional general appearance Overall: well developed 11/12/2017 None Full Exam - General 1994 Constitutional general appearance Overall: in no acute distress 11/12/2017 None Full Exam - General 1994 Constitutional general appearance Overall: well nourished 11/12/2017 None Full Exam - General 1994 Eyes conjunctiva/eyelids Overall: conjunctiva clear 11/12/2017 None Full Exam - General 1994 Eyes conjunctiva/eyelids Overall: eyelids normal 11/12/2017 None Full Exam - General 1994 Eyes pupils and irises Overall: pupils equal, round, reactive to light and accomodation 11/12/2017 None Full Exam - General 1994 Ears/Nose/Throat otoscopic exam Overall: external auditory canals clear 11/12/2017 None Full Exam - General 1994 Ears/Nose/Throat otoscopic exam Overall: tympanic membranes clear 11/12/2017 None Full Exam - General 1994 Ears/Nose/Throat lips/teeth/gingiva Overall: benign lips 11/12/2017 None Full Exam - General 1994 Ears/Nose/Throat oral cavity/pharynx/larynx Overall: oral mucosa clear 11/12/2017 None Full Exam - General 1994 Respiratory auscultation Overall: breath sounds clear bilaterally 11/12/2017 None Full Exam - General 1994 Respiratory respiratory effort/rhythm Overall: no retractions 11/12/2017 None Full Exam - General 1994 Respiratory respiratory effort/rhythm Overall: normal rate 11/12/2017 None Full Exam - General 1994 Cardiovascular extremities Overall: no clubbing 11/12/2017 None Full Exam - General 1994 Cardiovascular auscultation of heart Overall: regular rate 11/12/2017 None Full Exam - General 1994 Cardiovascular auscultation of heart Overall: normal heart sounds 11/12/2017 None Full Exam - General 1994 Musculoskeletal gait and station Overall: normal gait 11/12/2017 None Full Exam - General 1994 Musculoskeletal gait and station Overall: normal station 11/12/2017 None Full Exam - General 1994 Musculoskeletal head and neck Overall: head atraumatic 11/12/2017 None Full Exam - General 1994 Neurologic cranial nerves Overall: crainial nerves 2 - 12 grossly intact 11/12/2017 None Full Exam - General 1994 Psychiatric orientation/consciousness Overall: oriented to person, place and time 11/12/2017 None Full Exam - General 1994 Psychiatric mood and affect Overall: normal mood and affect 11/12/2017 None Full Exam - General 1994 Psychiatric appearance Overall: well-groomed, good eye contact 11/12/2017 None Full Exam - General 1994 Constitutional general appearance Overall: well developed 09/16/2017 None Full Exam - General 1994 Constitutional general appearance Overall: in no acute distress 09/16/2017 None Full Exam - General 1994 Constitutional general appearance Overall: well nourished 09/16/2017 None Full Exam - General 1994 Eyes conjunctiva/eyelids Overall: conjunctiva clear 09/16/2017 None Full Exam - General 1994 Eyes conjunctiva/eyelids Overall: eyelids normal 09/16/2017 None Full Exam - General 1994 Eyes pupils and irises Overall: pupils equal, round, reactive to light and accomodation 09/16/2017 None Full Exam - General 1994 Ears/Nose/Throat otoscopic exam Overall: external auditory canals clear 09/16/2017 None Full Exam - General 1994 Ears/Nose/Throat otoscopic exam Overall: tympanic membranes clear 09/16/2017 None Full Exam - General 1994 Ears/Nose/Throat lips/teeth/gingiva Overall: benign lips 09/16/2017 None Full Exam - General 1994 Ears/Nose/Throat oral cavity/pharynx/larynx Overall: oral mucosa clear 09/16/2017 None Full Exam - General 1994 Respiratory auscultation Overall: breath sounds clear bilaterally 09/16/2017 None Full Exam - General 1994 Respiratory respiratory effort/rhythm Overall: no retractions 09/16/2017 None Full Exam - General 1994 Respiratory respiratory effort/rhythm Overall: normal rate 09/16/2017 None Full Exam - General 1994 Cardiovascular extremities Overall: no clubbing 09/16/2017 None Full Exam - General 1994 Cardiovascular auscultation of heart Overall: regular rate 09/16/2017 None Full Exam - General 1994 Cardiovascular auscultation of heart Overall: normal heart sounds 09/16/2017 None Full Exam - General 1994 Lymphatic neck nodes Overall: anterior cervical chain benign 09/16/2017 None Full Exam - General 1994 Lymphatic neck nodes Overall: posterior cervical chain benign 09/16/2017 None Full Exam - General 1994 Musculoskeletal gait and station Overall: normal gait 09/16/2017 None Full Exam - General 1994 Musculoskeletal gait and station Overall: normal station 09/16/2017 None Full Exam - General 1994 Musculoskeletal head and neck Overall: head atraumatic 09/16/2017 None Full Exam - General 1994 Neurologic cranial nerves Overall: crainial nerves 2 - 12 grossly intact 09/16/2017 None Full Exam - General 1994 Psychiatric orientation/consciousness Overall: oriented to person, place and time 09/16/2017 None Full Exam - General 1994 Psychiatric mood and affect Overall: normal mood and affect 09/16/2017 None Full Exam - General 1994 Psychiatric appearance Overall: well-groomed, good eye contact 09/16/2017 None Full Exam - General 1994 Constitutional general appearance Overall: well developed 06/30/2017 None Full Exam - General 1994 Constitutional general appearance Overall: in no acute distress 06/30/2017 None Full Exam - General 1994 Constitutional general appearance Overall: well nourished 06/30/2017 None Full Exam - General 1994 Eyes conjunctiva/eyelids Overall: conjunctiva clear 06/30/2017 None Full Exam - General 1994 Eyes conjunctiva/eyelids Overall: eyelids normal 06/30/2017 None Full Exam - General 1994 Eyes pupils and irises Overall: pupils equal, round, reactive to light and accomodation 06/30/2017 None Full Exam - General 1994 Ears/Nose/Throat otoscopic exam Overall: external auditory canals clear 06/30/2017 None Full Exam - General 1994 Ears/Nose/Throat otoscopic exam Overall: tympanic membranes clear 06/30/2017 None Full Exam - General 1994 Ears/Nose/Throat lips/teeth/gingiva Overall: benign lips 06/30/2017 None Full Exam - General 1994 Ears/Nose/Throat oral cavity/pharynx/larynx Overall: oral mucosa clear 06/30/2017 None Full Exam - General 1994 Respiratory auscultation Overall: breath sounds clear bilaterally 06/30/2017 None Full Exam - General 1994 Respiratory respiratory effort/rhythm Overall: no retractions 06/30/2017 None Full Exam - General 1994 Respiratory respiratory effort/rhythm Overall: normal rate 06/30/2017 None Full Exam - General 1994 Cardiovascular extremities Overall: no clubbing 06/30/2017 None Full Exam - General 1994 Cardiovascular auscultation of heart Overall: regular rate 06/30/2017 None Full Exam - General 1994 Cardiovascular auscultation of heart Overall: normal heart sounds 06/30/2017 None Full Exam - General 1994 Lymphatic neck nodes Overall: anterior cervical chain benign 06/30/2017 None Full Exam - General 1994 Lymphatic neck nodes Overall: posterior cervical chain benign 06/30/2017 None Full Exam - General 1994 Musculoskeletal gait and station Overall: normal gait 06/30/2017 None Full Exam - General 1994 Musculoskeletal gait and station Overall: normal station 06/30/2017 None Full Exam - General 1994 Musculoskeletal head and neck Overall: head atraumatic 06/30/2017 None Full Exam - General 1994 Neurologic cranial nerves Overall: crainial nerves 2 - 12 grossly intact 06/30/2017 None Full Exam - General 1994 Psychiatric orientation/consciousness Overall: oriented to person, place and time 06/30/2017 None Full Exam - General 1994 Psychiatric mood and affect Overall: normal mood and affect 06/30/2017 None Full Exam - General 1994 Psychiatric appearance Overall: well-groomed, good eye contact 06/30/2017 None Full Exam - General 1994 Musculoskeletal upper extremity Inspection - forearm: swelling 06/30/2017 None Full Exam - General 1994 Constitutional general appearance Overall: well developed 02/14/2017 None Full Exam - General 1994 Constitutional general appearance Overall: well nourished 02/14/2017 None Full Exam - General 1994 Constitutional general appearance Overall: in no acute distress 02/14/2017 None Full Exam - General 1994 Eyes conjunctiva/eyelids Overall: conjunctiva clear 02/14/2017 None Full Exam - General 1994 Eyes conjunctiva/eyelids Overall: eyelids normal 02/14/2017 None Full Exam - General 1994 Eyes pupils and irises Overall: pupils equal, round, reactive to light and accomodation 02/14/2017 None Full Exam - General 1994 Ears/Nose/Throat otoscopic exam Overall: external auditory canals clear 02/14/2017 None Full Exam - General 1994 Ears/Nose/Throat otoscopic exam Overall: tympanic membranes clear 02/14/2017 None Full Exam - General 1994 Ears/Nose/Throat lips/teeth/gingiva Overall: benign lips 02/14/2017 None Full Exam - General 1994 Ears/Nose/Throat oral cavity/pharynx/larynx Overall: oral mucosa clear 02/14/2017 None Full Exam - General 1994 Respiratory respiratory effort/rhythm Overall: no retractions 02/14/2017 None Full Exam - General 1994 Respiratory respiratory effort/rhythm Overall: normal rate 02/14/2017 None Full Exam - General 1994 Respiratory auscultation Overall: breath sounds clear bilaterally 02/14/2017 None Full Exam - General 1994 Cardiovascular auscultation of heart Overall: regular rate 02/14/2017 None Full Exam - General 1994 Cardiovascular auscultation of heart Overall: normal heart sounds 02/14/2017 None Full Exam - General 1994 Cardiovascular extremities Overall: no clubbing 02/14/2017 None Full Exam - General 1994 Abdomen abdominal exam Overall: normal bowel sounds 02/14/2017 None Full Exam - General 1994 Abdomen abdominal exam Overall: no tenderness 02/14/2017 None Full Exam - General 1994 Lymphatic neck nodes Overall: posterior cervical chain benign 02/14/2017 None Full Exam - General 1994 Lymphatic neck nodes Overall: anterior cervical chain benign 02/14/2017 None Full Exam - General 1994 Musculoskeletal gait and station Overall: normal gait 02/14/2017 None Full Exam - General 1994 Musculoskeletal gait and station Overall: normal station 02/14/2017 None Full Exam - General 1994 Musculoskeletal head and neck Overall: head atraumatic 02/14/2017 None Full Exam - General 1994 Musculoskeletal upper extremity Overall: normal wrist 02/14/2017 None Full Exam - General 1994 Musculoskeletal upper extremity Overall: normal elbow 02/14/2017 None Full Exam - General 1994 Musculoskeletal upper extremity Overall: normal shoulder 02/14/2017 None Full Exam - General 1994 Neurologic cranial nerves Overall: crainial nerves 2 - 12 grossly intact 02/14/2017 None Full Exam - General 1994 Psychiatric orientation/consciousness Overall: oriented to person, place and time 02/14/2017 None Full Exam - General 1994 Psychiatric mood and affect Overall: normal mood and affect 02/14/2017 None Full Exam - General 1994 Psychiatric appearance Overall: well-groomed, good eye contact 02/14/2017 None Full Exam - General 1994 Neck thyroid Size: enlarged gland 06/2016 None Full Exam - General 1994 Neck thyroid Palpation: nontender 06/2016 None Exam Name System Name It em Name Status Result Effective Dates Notes Full Exam - General 1994 Constitutional general appearance Overall: well developed 01/28/2018 None Full Exam - General 1994 Constitutional general appearance Overall: in no acute distress 01/28/2018 None Full Exam - General 1994 Constitutional general appearance Overall: well nourished 01/28/2018 None Full Exam - General 1994 Eyes conjunctiva/eyelids Overall: conjunctiva clear 01/28/2018 None Full Exam - General 1994 Eyes conjunctiva/eyelids Overall: eyelids normal 01/28/2018 None Full Exam - General 1994 Eyes pupils and irises Overall: pupils equal, round, reactive to light and accomodation 01/28/2018 None Full Exam - General 1994 Ears/Nose/Throat otoscopic exam Overall: external auditory canals clear 01/28/2018 None Full Exam - General 1994 Ears/Nose/Throat otoscopic exam Overall: tympanic membranes clear 01/28/2018 None Full Exam - General 1994 Ears/Nose/Throat lips/teeth/gingiva Overall: benign lips 01/28/2018 None Full Exam - General 1994 Ears/Nose/Throat oral cavity/pharynx/larynx Overall: oral mucosa clear 01/28/2018 None Full Exam - General 1994 Respiratory auscultation Overall: breath sounds clear bilaterally 01/28/2018 None Full Exam - General 1994 Respiratory respiratory effort/rhythm Overall: no retractions 01/28/2018 None Full Exam - General 1994 Respiratory respiratory effort/rhythm Overall: normal rate 01/28/2018 None Full Exam - General 1994 Cardiovascular extremities Overall: no clubbing 01/28/2018 None Full Exam - General 1994 Cardiovascular auscultation of heart Overall: regular rate 01/28/2018 None Full Exam - General 1994 Cardiovascular auscultation of heart Overall: normal heart sounds 01/28/2018 None Full Exam - General 1994 Lymphatic neck nodes Overall: anterior cervical chain benign 01/28/2018 None Full Exam - General 1994 Lymphatic neck nodes Overall: posterior cervical chain benign 01/28/2018 None Full Exam - General 1994 Musculoskeletal upper extremity Inspection - forearm: swelling 01/28/2018 None Full Exam - General 1994 Musculoskeletal gait and station Overall: normal gait 01/28/2018 None Full Exam - General 1994 Musculoskeletal gait and station Overall: normal station 01/28/2018 None Full Exam - General 1994 Musculoskeletal head and neck Overall: head atraumatic 01/28/2018 None Full Exam - General 1994 Neurologic cranial nerves Overall: crainial nerves 2 - 12 grossly intact 01/28/2018 None Full Exam - General 1994 Psychiatric orientation/consciousness Overall: oriented to person, place and time 01/28/2018 None Full Exam - General 1994 Psychiatric mood and affect Overall: normal mood and affect 01/28/2018 None Full Exam - General 1994 Psychiatric appearance Overall: well-groomed, good eye contact 01/28/2018 None Full Exam - General 1994 Constitutional general appearance Overall: well developed 11/12/2017 None Full Exam - General 1994 Constitutional general appearance Overall: in no acute distress 11/12/2017 None Full Exam - General 1994 Constitutional general appearance Overall: well nourished 11/12/2017 None Full Exam - General 1994 Eyes conjunctiva/eyelids Overall: conjunctiva clear 11/12/2017 None Full Exam - General 1994 Eyes conjunctiva/eyelids Overall: eyelids normal 11/12/2017 None Full Exam - General 1994 Eyes pupils and irises Overall: pupils equal, round, reactive to light and accomodation 11/12/2017 None Full Exam - General 1994 Ears/Nose/Throat otoscopic exam Overall: external auditory canals clear 11/12/2017 None Full Exam - General 1994 Ears/Nose/Throat otoscopic exam Overall: tympanic membranes clear 11/12/2017 None Full Exam - General 1994 Ears/Nose/Throat lips/teeth/gingiva Overall: benign lips 11/12/2017 None Full Exam - General 1994 Ears/Nose/Throat oral cavity/pharynx/larynx Overall: oral mucosa clear 11/12/2017 None Full Exam - General 1994 Respiratory auscultation Overall: breath sounds clear bilaterally 11/12/2017 None Full Exam - General 1994 Respiratory respiratory effort/rhythm Overall: no retractions 11/12/2017 None Full Exam - General 1994 Respiratory respiratory effort/rhythm Overall: normal rate 11/12/2017 None Full Exam - General 1994 Cardiovascular extremities Overall: no clubbing 11/12/2017 None Full Exam - General 1994 Cardiovascular auscultation of heart Overall: regular rate 11/12/2017 None Full Exam - General 1994 Cardiovascular auscultation of heart Overall: normal heart sounds 11/12/2017 None Full Exam - General 1994 Musculoskeletal gait and station Overall: normal gait 11/12/2017 None Full Exam - General 1994 Musculoskeletal gait and station Overall: normal station 11/12/2017 None Full Exam - General 1994 Musculoskeletal head and neck Overall: head atraumatic 11/12/2017 None Full Exam - General 1994 Neurologic cranial nerves Overall: crainial nerves 2 - 12 grossly intact 11/12/2017 None Full Exam - General 1994 Psychiatric orientation/consciousness Overall: oriented to person, place and time 11/12/2017 None Full Exam - General 1994 Psychiatric mood and affect Overall: normal mood and affect 11/12/2017 None Full Exam - General 1994 Psychiatric appearance Overall: well-groomed, good eye contact 11/12/2017 None Full Exam - General 1994 Constitutional general appearance Overall: well developed 09/16/2017 None Full Exam - General 1994 Constitutional general appearance Overall: in no acute distress 09/16/2017 None Full Exam - General 1994 Constitutional general appearance Overall: well nourished 09/16/2017 None Full Exam - General 1994 Eyes conjunctiva/eyelids Overall: conjunctiva clear 09/16/2017 None Full Exam - General 1994 Eyes conjunctiva/eyelids Overall: eyelids normal 09/16/2017 None Full Exam - General 1994 Eyes pupils and irises Overall: pupils equal, round, reactive to light and accomodation 09/16/2017 None Full Exam - General 1994 Ears/Nose/Throat otoscopic exam Overall: external auditory canals clear 09/16/2017 None Full Exam - General 1994 Ears/Nose/Throat otoscopic exam Overall: tympanic membranes clear 09/16/2017 None Full Exam - General 1994 Ears/Nose/Throat lips/teeth/gingiva Overall: benign lips 09/16/2017 None Full Exam - General 1994 Ears/Nose/Throat oral cavity/pharynx/larynx Overall: oral mucosa clear 09/16/2017 None Full Exam - General 1994 Respiratory auscultation Overall: breath sounds clear bilaterally 09/16/2017 None Full Exam - General 1994 Respiratory respiratory effort/rhythm Overall: no retractions 09/16/2017 None Full Exam - General 1994 Respiratory respiratory effort/rhythm Overall: normal rate 09/16/2017 None Full Exam - General 1994 Cardiovascular extremities Overall: no clubbing 09/16/2017 None Full Exam - General 1994 Cardiovascular auscultation of heart Overall: regular rate 09/16/2017 None Full Exam - General 1994 Cardiovascular auscultation of heart Overall: normal heart sounds 09/16/2017 None Full Exam - General 1994 Lymphatic neck nodes Overall: anterior cervical chain benign 09/16/2017 None Full Exam - General 1994 Lymphatic neck nodes Overall: posterior cervical chain benign 09/16/2017 None Full Exam - General 1994 Musculoskeletal gait and station Overall: normal gait 09/16/2017 None Full Exam - General 1994 Musculoskeletal gait and station Overall: normal station 09/16/2017 None Full Exam - General 1994 Musculoskeletal head and neck Overall: head atraumatic 09/16/2017 None Full Exam - General 1994 Neurologic cranial nerves Overall: crainial nerves 2 - 12 grossly intact 09/16/2017 None Full Exam - General 1994 Psychiatric orientation/consciousness Overall: oriented to person, place and time 09/16/2017 None Full Exam - General 1994 Psychiatric mood and affect Overall: normal mood and affect 09/16/2017 None Full Exam - General 1994 Psychiatric appearance Overall: well-groomed, good eye contact 09/16/2017 None Full Exam - General 1994 Constitutional general appearance Overall: well developed 06/30/2017 None Full Exam - General 1994 Constitutional general appearance Overall: in no acute distress 06/30/2017 None Full Exam - General 1994 Constitutional general appearance Overall: well nourished 06/30/2017 None Full Exam - General 1994 Eyes conjunctiva/eyelids Overall: conjunctiva clear 06/30/2017 None Full Exam - General 1994 Eyes conjunctiva/eyelids Overall: eyelids normal 06/30/2017 None Full Exam - General 1994 Eyes pupils and irises Overall: pupils equal, round, reactive to light and accomodation 06/30/2017 None Full Exam - General 1994 Ears/Nose/Throat otoscopic exam Overall: external auditory canals clear 06/30/2017 None Full Exam - General 1994 Ears/Nose/Throat otoscopic exam Overall: tympanic membranes clear 06/30/2017 None Full Exam - General 1994 Ears/Nose/Throat lips/teeth/gingiva Overall: benign lips 06/30/2017 None Full Exam - General 1994 Ears/Nose/Throat oral cavity/pharynx/larynx Overall: oral mucosa clear 06/30/2017 None Full Exam - General 1994 Respiratory auscultation Overall: breath sounds clear bilaterally 06/30/2017 None Full Exam - General 1994 Respiratory respiratory effort/rhythm Overall: no retractions 06/30/2017 None Full Exam - General 1994 Respiratory respiratory effort/rhythm Overall: normal rate 06/30/2017 None Full Exam - General 1994 Cardiovascular extremities Overall: no clubbing 06/30/2017 None Full Exam - General 1994 Cardiovascular auscultation of heart Overall: regular rate 06/30/2017 None Full Exam - General 1994 Cardiovascular auscultation of heart Overall: normal heart sounds 06/30/2017 None Full Exam - General 1994 Lymphatic neck nodes Overall: anterior cervical chain benign 06/30/2017 None Full Exam - General 1994 Lymphatic neck nodes Overall: posterior cervical chain benign 06/30/2017 None Full Exam - General 1994 Musculoskeletal gait and station Overall: normal gait 06/30/2017 None Full Exam - General 1994 Musculoskeletal gait and station Overall: normal station 06/30/2017 None Full Exam - General 1994 Musculoskeletal head and neck Overall: head atraumatic 06/30/2017 None Full Exam - General 1994 Neurologic cranial nerves Overall: crainial nerves 2 - 12 grossly intact 06/30/2017 None Full Exam - General 1994 Psychiatric orientation/consciousness Overall: oriented to person, place and time 06/30/2017 None Full Exam - General 1994 Psychiatric mood and affect Overall: normal mood and affect 06/30/2017 None Full Exam - General 1994 Psychiatric appearance Overall: well-groomed, good eye contact 06/30/2017 None Full Exam - General 1994 Musculoskeletal upper extremity Inspection - forearm: swelling 06/30/2017 None Full Exam - General 1994 Constitutional general appearance Overall: well developed 02/14/2017 None Full Exam - General 1994 Constitutional general appearance Overall: well nourished 02/14/2017 None Full Exam - General 1994 Constitutional general appearance Overall: in no acute distress 02/14/2017 None Full Exam - General 1994 Eyes conjunctiva/eyelids Overall: conjunctiva clear 02/14/2017 None Full Exam - General 1994 Eyes conjunctiva/eyelids Overall: eyelids normal 02/14/2017 None Full Exam - General 1994 Eyes pupils and irises Overall: pupils equal, round, reactive to light and accomodation 02/14/2017 None Full Exam - General 1994 Ears/Nose/Throat otoscopic exam Overall: external auditory canals clear 02/14/2017 None Full Exam - General 1994 Ears/Nose/Throat otoscopic exam Overall: tympanic membranes clear 02/14/2017 None Full Exam - General 1994 Ears/Nose/Throat lips/teeth/gingiva Overall: benign lips 02/14/2017 None Full Exam - General 1994 Ears/Nose/Throat oral cavity/pharynx/larynx Overall: oral mucosa clear 02/14/2017 None Full Exam - General 1994 Respiratory respiratory effort/rhythm Overall: no retractions 02/14/2017 None Full Exam - General 1994 Respiratory respiratory effort/rhythm Overall: normal rate 02/14/2017 None Full Exam - General 1994 Respiratory auscultation Overall: breath sounds clear bilaterally 02/14/2017 None Full Exam - General 1994 Cardiovascular auscultation of heart Overall: regular rate 02/14/2017 None Full Exam - General 1994 Cardiovascular auscultation of heart Overall: normal heart sounds 02/14/2017 None Full Exam - General 1994 Cardiovascular extremities Overall: no clubbing 02/14/2017 None Full Exam - General 1994 Abdomen abdominal exam Overall: normal bowel sounds 02/14/2017 None Full Exam - General 1994 Abdomen abdominal exam Overall: no tenderness 02/14/2017 None Full Exam - General 1994 Lymphatic neck nodes Overall: posterior cervical chain benign 02/14/2017 None Full Exam - General 1994 Lymphatic neck nodes Overall: anterior cervical chain benign 02/14/2017 None Full Exam - General 1994 Musculoskeletal gait and station Overall: normal gait 02/14/2017 None Full Exam - General 1994 Musculoskeletal gait and station Overall: normal station 02/14/2017 None Full Exam - General 1994 Musculoskeletal head and neck Overall: head atraumatic 02/14/2017 None Full Exam - General 1994 Musculoskeletal upper extremity Overall: normal wrist 02/14/2017 None Full Exam - General 1994 Musculoskeletal upper extremity Overall: normal elbow 02/14/2017 None Full Exam - General 1994 Musculoskeletal upper extremity Overall: normal shoulder 02/14/2017 None Full Exam - General 1994 Neurologic cranial nerves Overall: crainial nerves 2 - 12 grossly intact 02/14/2017 None Full Exam - General 1994 Psychiatric orientation/consciousness Overall: oriented to person, place and time 02/14/2017 None Full Exam - General 1994 Psychiatric mood and affect Overall: normal mood and affect 02/14/2017 None Full Exam - General 1994 Psychiatric appearance Overall: well-groomed, good eye contact 02/14/2017 None Full Exam - General 1994 Neck thyroid Size: enlarged gland 06/2016 None Full Exam - General 1994 Neck thyroid Palpation: nontender 06/2016 None Exam Name System Name It em Name Status Result Effective Dates Notes Full Exam - General 1994 Constitutional general appearance Overall: well developed 08/05/2018 None Full Exam - General 1994 Constitutional general appearance Overall: in no acute distress 08/05/2018 None Full Exam - General 1994 Constitutional general appearance Overall: well nourished 08/05/2018 None Full Exam - General 1994 Eyes conjunctiva/eyelids Overall: conjunctiva clear 08/05/2018 None Full Exam - General 1994 Eyes conjunctiva/eyelids Overall: eyelids normal 08/05/2018 None Full Exam - General 1994 Eyes pupils and irises Overall: pupils equal, round, reactive to light and accomodation 08/05/2018 None Full Exam - General 1994 Ears/Nose/Throat otoscopic exam Overall: external auditory canals clear 08/05/2018 None Full Exam - General 1994 Ears/Nose/Throat otoscopic exam Overall: tympanic membranes clear 08/05/2018 None Full Exam - General 1994 Ears/Nose/Throat lips/teeth/gingiva Overall: benign lips 08/05/2018 None Full Exam - General 1994 Ears/Nose/Throat oral cavity/pharynx/larynx Overall: oral mucosa clear 08/05/2018 None Full Exam - General 1994 Respiratory auscultation Overall: breath sounds clear bilaterally 08/05/2018 None Full Exam - General 1994 Respiratory respiratory effort/rhythm Overall: no retractions 08/05/2018 None Full Exam - General 1994 Respiratory respiratory effort/rhythm Overall: normal rate 08/05/2018 None Full Exam - General 1994 Cardiovascular extremities Overall: no clubbing 08/05/2018 None Full Exam - General 1994 Cardiovascular auscultation of heart Overall: regular rate 08/05/2018 None Full Exam - General 1994 Cardiovascular auscultation of heart Overall: normal heart sounds 08/05/2018 None Full Exam - General 1994 Lymphatic neck nodes Overall: anterior cervical chain benign 08/05/2018 None Full Exam - General 1994 Lymphatic neck nodes Overall: posterior cervical chain benign 08/05/2018 None Full Exam - General 1994 Musculoskeletal upper extremity Inspection - forearm: swelling 08/05/2018 None Full Exam - General 1994 Musculoskeletal gait and station Overall: normal gait 08/05/2018 None Full Exam - General 1994 Musculoskeletal gait and station Overall: normal station 08/05/2018 None Full Exam - General 1994 Musculoskeletal head and neck Overall: head atraumatic 08/05/2018 None Full Exam - General 1994 Neurologic cranial nerves Overall: crainial nerves 2 - 12 grossly intact 08/05/2018 None Full Exam - General 1994 Psychiatric orientation/consciousness Overall: oriented to person, place and time 08/05/2018 None Full Exam - General 1994 Psychiatric mood and affect Overall: normal mood and affect 08/05/2018 None Full Exam - General 1994 Psychiatric appearance Overall: well-groomed, good eye contact 08/05/2018 None Full Exam - General 1994 Constitutional general appearance Overall: well developed 01/28/2018 None Full Exam - General 1994 Constitutional general appearance Overall: in no acute distress 01/28/2018 None Full Exam - General 1994 Constitutional general appearance Overall: well nourished 01/28/2018 None Full Exam - General 1994 Eyes conjunctiva/eyelids Overall: conjunctiva clear 01/28/2018 None Full Exam - General 1994 Eyes conjunctiva/eyelids Overall: eyelids normal 01/28/2018 None Full Exam - General 1994 Eyes pupils and irises Overall: pupils equal, round, reactive to light and accomodation 01/28/2018 None Full Exam - General 1994 Ears/Nose/Throat otoscopic exam Overall: external auditory canals clear 01/28/2018 None Full Exam - General 1994 Ears/Nose/Throat otoscopic exam Overall: tympanic membranes clear 01/28/2018 None Full Exam - General 1994 Ears/Nose/Throat lips/teeth/gingiva Overall: benign lips 01/28/2018 None Full Exam - General 1994 Ears/Nose/Throat oral cavity/pharynx/larynx Overall: oral mucosa clear 01/28/2018 None Full Exam - General 1994 Respiratory auscultation Overall: breath sounds clear bilaterally 01/28/2018 None Full Exam - General 1994 Respiratory respiratory effort/rhythm Overall: no retractions 01/28/2018 None Full Exam - General 1994 Respiratory respiratory effort/rhythm Overall: normal rate 01/28/2018 None Full Exam - General 1994 Cardiovascular extremities Overall: no clubbing 01/28/2018 None Full Exam - General 1994 Cardiovascular auscultation of heart Overall: regular rate 01/28/2018 None Full Exam - General 1994 Cardiovascular auscultation of heart Overall: normal heart sounds 01/28/2018 None Full Exam - General 1994 Lymphatic neck nodes Overall: anterior cervical chain benign 01/28/2018 None Full Exam - General 1994 Lymphatic neck nodes Overall: posterior cervical chain benign 01/28/2018 None Full Exam - General 1994 Musculoskeletal upper extremity Inspection - forearm: swelling 01/28/2018 None Full Exam - General 1994 Musculoskeletal gait and station Overall: normal gait 01/28/2018 None Full Exam - General 1994 Musculoskeletal gait and station Overall: normal station 01/28/2018 None Full Exam - General 1994 Musculoskeletal head and neck Overall: head atraumatic 01/28/2018 None Full Exam - General 1994 Neurologic cranial nerves Overall: crainial nerves 2 - 12 grossly intact 01/28/2018 None Full Exam - General 1994 Psychiatric orientation/consciousness Overall: oriented to person, place and time 01/28/2018 None Full Exam - General 1994 Psychiatric mood and affect Overall: normal mood and affect 01/28/2018 None Full Exam - General 1994 Psychiatric appearance Overall: well-groomed, good eye contact 01/28/2018 None Full Exam - General 1994 Constitutional general appearance Overall: well developed 11/12/2017 None Full Exam - General 1994 Constitutional general appearance Overall: in no acute distress 11/12/2017 None Full Exam - General 1994 Constitutional general appearance Overall: well nourished 11/12/2017 None Full Exam - General 1994 Eyes conjunctiva/eyelids Overall: conjunctiva clear 11/12/2017 None Full Exam - General 1994 Eyes conjunctiva/eyelids Overall: eyelids normal 11/12/2017 None Full Exam - General 1994 Eyes pupils and irises Overall: pupils equal, round, reactive to light and accomodation 11/12/2017 None Full Exam - General 1994 Ears/Nose/Throat otoscopic exam Overall: external auditory canals clear 11/12/2017 None Full Exam - General 1994 Ears/Nose/Throat otoscopic exam Overall: tympanic membranes clear 11/12/2017 None Full Exam - General 1994 Ears/Nose/Throat lips/teeth/gingiva Overall: benign lips 11/12/2017 None Full Exam - General 1994 Ears/Nose/Throat oral cavity/pharynx/larynx Overall: oral mucosa clear 11/12/2017 None Full Exam - General 1994 Respiratory auscultation Overall: breath sounds clear bilaterally 11/12/2017 None Full Exam - General 1994 Respiratory respiratory effort/rhythm Overall: no retractions 11/12/2017 None Full Exam - General 1994 Respiratory respiratory effort/rhythm Overall: normal rate 11/12/2017 None Full Exam - General 1994 Cardiovascular extremities Overall: no clubbing 11/12/2017 None Full Exam - General 1994 Cardiovascular auscultation of heart Overall: regular rate 11/12/2017 None Full Exam - General 1994 Cardiovascular auscultation of heart Overall: normal heart sounds 11/12/2017 None Full Exam - General 1994 Musculoskeletal gait and station Overall: normal gait 11/12/2017 None Full Exam - General 1994 Musculoskeletal gait and station Overall: normal station 11/12/2017 None Full Exam - General 1994 Musculoskeletal head and neck Overall: head atraumatic 11/12/2017 None Full Exam - General 1994 Neurologic cranial nerves Overall: crainial nerves 2 - 12 grossly intact 11/12/2017 None Full Exam - General 1994 Psychiatric orientation/consciousness Overall: oriented to person, place and time 11/12/2017 None Full Exam - General 1994 Psychiatric mood and affect Overall: normal mood and affect 11/12/2017 None Full Exam - General 1994 Psychiatric appearance Overall: well-groomed, good eye contact 11/12/2017 None Full Exam - General 1994 Constitutional general appearance Overall: well developed 09/16/2017 None Full Exam - General 1994 Constitutional general appearance Overall: in no acute distress 09/16/2017 None Full Exam - General 1994 Constitutional general appearance Overall: well nourished 09/16/2017 None Full Exam - General 1994 Eyes conjunctiva/eyelids Overall: conjunctiva clear 09/16/2017 None Full Exam - General 1994 Eyes conjunctiva/eyelids Overall: eyelids normal 09/16/2017 None Full Exam - General 1994 Eyes pupils and irises Overall: pupils equal, round, reactive to light and accomodation 09/16/2017 None Full Exam - General 1994 Ears/Nose/Throat otoscopic exam Overall: external auditory canals clear 09/16/2017 None Full Exam - General 1994 Ears/Nose/Throat otoscopic exam Overall: tympanic membranes clear 09/16/2017 None Full Exam - General 1994 Ears/Nose/Throat lips/teeth/gingiva Overall: benign lips 09/16/2017 None Full Exam - General 1994 Ears/Nose/Throat oral cavity/pharynx/larynx Overall: oral mucosa clear 09/16/2017 None Full Exam - General 1994 Respiratory auscultation Overall: breath sounds clear bilaterally 09/16/2017 None Full Exam - General 1994 Respiratory respiratory effort/rhythm Overall: no retractions 09/16/2017 None Full Exam - General 1994 Respiratory respiratory effort/rhythm Overall: normal rate 09/16/2017 None Full Exam - General 1994 Cardiovascular extremities Overall: no clubbing 09/16/2017 None Full Exam - General 1994 Cardiovascular auscultation of heart Overall: regular rate 09/16/2017 None Full Exam - General 1994 Cardiovascular auscultation of heart Overall: normal heart sounds 09/16/2017 None Full Exam - General 1994 Lymphatic neck nodes Overall: anterior cervical chain benign 09/16/2017 None Full Exam - General 1994 Lymphatic neck nodes Overall: posterior cervical chain benign 09/16/2017 None Full Exam - General 1994 Musculoskeletal gait and station Overall: normal gait 09/16/2017 None Full Exam - General 1994 Musculoskeletal gait and station Overall: normal station 09/16/2017 None Full Exam - General 1994 Musculoskeletal head and neck Overall: head atraumatic 09/16/2017 None Full Exam - General 1994 Neurologic cranial nerves Overall: crainial nerves 2 - 12 grossly intact 09/16/2017 None Full Exam - General 1994 Psychiatric orientation/consciousness Overall: oriented to person, place and time 09/16/2017 None Full Exam - General 1994 Psychiatric mood and affect Overall: normal mood and affect 09/16/2017 None Full Exam - General 1994 Psychiatric appearance Overall: well-groomed, good eye contact 09/16/2017 None Full Exam - General 1994 Constitutional general appearance Overall: well developed 06/30/2017 None Full Exam - General 1994 Constitutional general appearance Overall: in no acute distress 06/30/2017 None Full Exam - General 1994 Constitutional general appearance Overall: well nourished 06/30/2017 None Full Exam - General 1994 Eyes conjunctiva/eyelids Overall: conjunctiva clear 06/30/2017 None Full Exam - General 1994 Eyes conjunctiva/eyelids Overall: eyelids normal 06/30/2017 None Full Exam - General 1994 Eyes pupils and irises Overall: pupils equal, round, reactive to light and accomodation 06/30/2017 None Full Exam - General 1994 Ears/Nose/Throat otoscopic exam Overall: external auditory canals clear 06/30/2017 None Full Exam - General 1994 Ears/Nose/Throat otoscopic exam Overall: tympanic membranes clear 06/30/2017 None Full Exam - General 1994 Ears/Nose/Throat lips/teeth/gingiva Overall: benign lips 06/30/2017 None Full Exam - General 1994 Ears/Nose/Throat oral cavity/pharynx/larynx Overall: oral mucosa clear 06/30/2017 None Full Exam - General 1994 Respiratory auscultation Overall: breath sounds clear bilaterally 06/30/2017 None Full Exam - General 1994 Respiratory respiratory effort/rhythm Overall: no retractions 06/30/2017 None Full Exam - General 1994 Respiratory respiratory effort/rhythm Overall: normal rate 06/30/2017 None Full Exam - General 1994 Cardiovascular extremities Overall: no clubbing 06/30/2017 None Full Exam - General 1994 Cardiovascular auscultation of heart Overall: regular rate 06/30/2017 None Full Exam - General 1994 Cardiovascular auscultation of heart Overall: normal heart sounds 06/30/2017 None Full Exam - General 1994 Lymphatic neck nodes Overall: anterior cervical chain benign 06/30/2017 None Full Exam - General 1994 Lymphatic neck nodes Overall: posterior cervical chain benign 06/30/2017 None Full Exam - General 1994 Musculoskeletal gait and station Overall: normal gait 06/30/2017 None Full Exam - General 1994 Musculoskeletal gait and station Overall: normal station 06/30/2017 None Full Exam - General 1994 Musculoskeletal head and neck Overall: head atraumatic 06/30/2017 None Full Exam - General 1994 Neurologic cranial nerves Overall: crainial nerves 2 - 12 grossly intact 06/30/2017 None Full Exam - General 1994 Psychiatric orientation/consciousness Overall: oriented to person, place and time 06/30/2017 None Full Exam - General 1994 Psychiatric mood and affect Overall: normal mood and affect 06/30/2017 None Full Exam - General 1994 Psychiatric appearance Overall: well-groomed, good eye contact 06/30/2017 None Full Exam - General 1994 Musculoskeletal upper extremity Inspection - forearm: swelling 06/30/2017 None Full Exam - General 1994 Constitutional general appearance Overall: well developed 02/14/2017 None Full Exam - General 1994 Constitutional general appearance Overall: well nourished 02/14/2017 None Full Exam - General 1994 Constitutional general appearance Overall: in no acute distress 02/14/2017 None Full Exam - General 1994 Eyes conjunctiva/eyelids Overall: conjunctiva clear 02/14/2017 None Full Exam - General 1994 Eyes conjunctiva/eyelids Overall: eyelids normal 02/14/2017 None Full Exam - General 1994 Eyes pupils and irises Overall: pupils equal, round, reactive to light and accomodation 02/14/2017 None Full Exam - General 1994 Ears/Nose/Throat otoscopic exam Overall: external auditory canals clear 02/14/2017 None Full Exam - General 1994 Ears/Nose/Throat otoscopic exam Overall: tympanic membranes clear 02/14/2017 None Full Exam - General 1994 Ears/Nose/Throat lips/teeth/gingiva Overall: benign lips 02/14/2017 None Full Exam - General 1994 Ears/Nose/Throat oral cavity/pharynx/larynx Overall: oral mucosa clear 02/14/2017 None Full Exam - General 1994 Respiratory respiratory effort/rhythm Overall: no retractions 02/14/2017 None Full Exam - General 1994 Respiratory respiratory effort/rhythm Overall: normal rate 02/14/2017 None Full Exam - General 1994 Respiratory auscultation Overall: breath sounds clear bilaterally 02/14/2017 None Full Exam - General 1994 Cardiovascular auscultation of heart Overall: regular rate 02/14/2017 None Full Exam - General 1994 Cardiovascular auscultation of heart Overall: normal heart sounds 02/14/2017 None Full Exam - General 1994 Cardiovascular extremities Overall: no clubbing 02/14/2017 None Full Exam - General 1994 Abdomen abdominal exam Overall: normal bowel sounds 02/14/2017 None Full Exam - General 1994 Abdomen abdominal exam Overall: no tenderness 02/14/2017 None Full Exam - General 1994 Lymphatic neck nodes Overall: posterior cervical chain benign 02/14/2017 None Full Exam - General 1994 Lymphatic neck nodes Overall: anterior cervical chain benign 02/14/2017 None Full Exam - General 1994 Musculoskeletal gait and station Overall: normal gait 02/14/2017 None Full Exam - General 1994 Musculoskeletal gait and station Overall: normal station 02/14/2017 None Full Exam - General 1994 Musculoskeletal head and neck Overall: head atraumatic 02/14/2017 None Full Exam - General 1994 Musculoskeletal upper extremity Overall: normal wrist 02/14/2017 None Full Exam - General 1994 Musculoskeletal upper extremity Overall: normal elbow 02/14/2017 None Full Exam - General 1994 Musculoskeletal upper extremity Overall: normal shoulder 02/14/2017 None Full Exam - General 1994 Neurologic cranial nerves Overall: crainial nerves 2 - 12 grossly intact 02/14/2017 None Full Exam - General 1994 Psychiatric orientation/consciousness Overall: oriented to person, place and time 02/14/2017 None Full Exam - General 1994 Psychiatric mood and affect Overall: normal mood and affect 02/14/2017 None Full Exam - General 1994 Psychiatric appearance Overall: well-groomed, good eye contact 02/14/2017 None Full Exam - General 1994 Neck thyroid Size: enlarged gland 06/2016 None Full Exam - General 1994 Neck thyroid Palpation: nontender 06/2016 None Advance Directives No Advance Directive dataNo Advance Directive dataNo Advance Directive dataNo Advance Directive dataNo Advance Directive data Instructions Comment . ADHD - medication working well for treatment of the pt's medical condition and the pt is to continue with current medication for treatment of the symptoms of ADHD. The pt is to call if they notice palpitations, rapid weight loss, severe insomnia that does improve. Pt is to call for any acute concerns, or if the medication does not seem to be working for improvement of the ADHD symptoms. Pt is aware of risk associated with medication use, and the danger of the medication if in the hands of someone to whom the medication was not prescribed. Chronic Depression and anxiety - the pt has symptoms of chronic anxiety and depression that have been fairly well controlled since the last office visit. The pt has expected periods of exacerbation with abatement of the symptoms with change in situational exposure. No change in current medications. . Hypothyroidism - n ew with dysphagia, dysphonia, and fatigue - enlarged thyroid noted - will order thyroid US, pt is continue with current medication, will monitor pt to signs or symptoms of lack of adequate supplementation. Pt is to continue with current dose of medication unless directed otherwise. Check labs at regular intervals wither q 3 months or q 6 months based on previous levels of control. . Hypothyroidism - pt is continue with current medication, will monitor pt to signs or symptoms of lack of adequate supplementation. Pt is to continue with current dose of medication unless directed otherwise. Check labs at regular intervals wither q 3 months or q 6 months based on previous levels of control. Wrist fullness/pain - referral to dr. simon marin RE - right wrist pain, fullness. ADHD - refilled Adderall lexapro 5mg in the e vening . Anxiety/depression-uncontrolled - the patient has uncontrolled anxiety and will benefit from an SSRI on a daily basis to attempt control of the symptoms of anxiety (tachycardia, overwhelming sensations, stress, insomnia, etc). Pt is aware of the risks and benefits of treatment with the above medications. ADHD - medication working well for treatment of the pt's medical condition and the pt is to continue with current medication for treatment of the symptoms of ADHD. The pt is to call if they notice palpitations, rapid weight loss, severe insomnia that does improve. Pt is to call for any acute concerns, or if the medication does not seem to be working for improvement of the ADHD symptoms. Pt is aware of risk associated with medication use, and the danger of the medication if in the hands of someone to whom the medication was not prescribed. Comment . ADHD - medication working well for treatment of the pt's medical condition and the pt is to continue with current medication for treatment of the symptoms of ADHD. The pt is to call if they notice palpitations, rapid weight loss, severe insomnia that does improve. Pt is to call for any acute concerns, or if the medication does not seem to be working for improvement of the ADHD symptoms. Pt is aware of risk associated with medication use, and the danger of the medication if in the hands of someone to whom the medication was not prescribed. Chronic Depression and anxiety - the pt has symptoms of chronic anxiety and depression that have been fairly well controlled since the last office visit. The pt has expected periods of exacerbation with abatement of the symptoms with change in situational exposure. No change in current medications. . Hypothyroidism - n ew with dysphagia, dysphonia, and fatigue - enlarged thyroid noted - will order thyroid US, pt is continue with current medication, will monitor pt to signs or symptoms of lack of adequate supplementation. Pt is to continue with current dose of medication unless directed otherwise. Check labs at regular intervals wither q 3 months or q 6 months based on previous levels of control. . Hypothyroidism - p t is continue with current medication, will monitor pt to signs or symptoms of lack of adequate supplementation. Pt is to continue with current dose of medication unless directed otherwise. Check labs at regular intervals wither q 3 months or q 6 months based on previous levels of control. ADHD - refilled Adderall Depression - continue with lexapro . Hypothyroidism - pt is continue with current medication, will monitor pt to signs or symptoms of lack of adequate supplementation. Pt is to continue with current dose of medication unless directed otherwise. Check labs at regular intervals wither q 3 months or q 6 months based on previous levels of control. Wrist fullness/pain - referral to dr. simon marin RE - right wrist pain, fullness. ADHD - refilled Adderall lexapro 5mg in the e vening . Anxiety/depression-uncontrolled - the patient has uncontrolled anxiety and will benefit from an SSRI on a daily basis to attempt control of the symptoms of anxiety (tachycardia, overwhelming sensations, stress, insomnia, etc). Pt is aware of the risks and benefits of treatment with the above medications. ADHD - medication working well for treatment of the pt's medical condition and the pt is to continue with current medication for treatment of the symptoms of ADHD. The pt is to call if they notice palpitations, rapid weight loss, severe insomnia that does improve. Pt is to call for any acute concerns, or if the medication does not seem to be working for improvement of the ADHD symptoms. Pt is aware of risk associated with medication use, and the danger of the medication if in the hands of someone to whom the medication was not prescribed. Comment . ADHD - medication working well for treatment of the pt's medical condition and the pt is to continue with current medication for treatment of the symptoms of ADHD. The pt is to call if they notice palpitations, rapid weight loss, severe insomnia that does improve. Pt is to call for any acute concerns, or if the medication does not seem to be working for improvement of the ADHD symptoms. Pt is aware of risk associated with medication use, and the danger of the medication if in the hands of someone to whom the medication was not prescribed. Chronic Depression and anxiety - the pt has symptoms of chronic anxiety and depression that have been fairly well controlled since the last office visit. The pt has expected periods of exacerbation with abatement of the symptoms with change in situational exposure. No change in current medications. . Hypothyroidism - n ew with dysphagia, dysphonia, and fatigue - enlarged thyroid noted - will order thyroid US, pt is continue with current medication, will monitor pt to signs or symptoms of lack of adequate supplementation. Pt is to continue with current dose of medication unless directed otherwise. Check labs at regular intervals wither q 3 months or q 6 months based on previous levels of control. . Hypothyroidism - p t is continue with current medication, will monitor pt to signs or symptoms of lack of adequate supplementation. Pt is to continue with current dose of medication unless directed otherwise. Check labs at regular intervals wither q 3 months or q 6 months based on previous levels of control. ADHD - refilled Adderall Depression - continue with lexapro . Well Adult - pt wa s counseled about diet, exercise, and encouraged to follow a heart healthy diet and increase activity level. The patient was instructed to RTC yearly for well adult exams and PRN for acute illnesses. The pt was also instructed to have yearly labs for check of cholesterol, thyroid, chem panel, CBC, and renal functioning. Anxiety - the patient has uncontrolled anxiety and will benefit from an SNRI/SSRI on a daily basis to attempt control of the symptoms of anxiety. . Hypothyroidism - pt is continue with current medication, will monitor pt to signs or symptoms of lack of adequate supplementation. Pt is to continue with current dose of medication unless directed otherwise. Check labs at regular intervals wither q 3 months or q 6 months based on previous levels of control. Wrist fullness/pain - referral to dr. simon marin RE - right wrist pain, fullness. ADHD - refilled Adderall lexapro 5mg in the e vening . Anxiety/depression-uncontrolled - the patient has uncontrolled anxiety and will benefit from an SSRI on a daily basis to attempt control of the symptoms of anxiety (tachycardia, overwhelming sensations, stress, insomnia, etc). Pt is aware of the risks and benefits of treatment with the above medications. ADHD - medication working well for treatment of the pt's medical condition and the pt is to continue with current medication for treatment of the symptoms of ADHD. The pt is to call if they notice palpitations, rapid weight loss, severe insomnia that does improve. Pt is to call for any acute concerns, or if the medication does not seem to be working for improvement of the ADHD symptoms. Pt is aware of risk associated with medication use, and the danger of the medication if in the hands of someone to whom the medication was not prescribed. Chief Complaint Reason For Visit Effective Dates Notes hypothyroid 01/28/2018 medication follow up 11/12/2017 depression 09/16/2017 wrist pain 06/30/2017 hand pain 02/14/2017 Reason For Visit Effective Dates Notes hypothyroid 08/05/2018 hypothyroid 01/28/2018 medication follow up 11/12/2017 depression 09/16/2017 wrist pain 06/30/2017 hand pain 02/14/2017 History of Present Illness Symptom Name Status Resu lt Effective Date Notes hypothyroid Onset and Resolution ongoing 01/28/2018 None hypothyroid Alleviating Factors medication 01/28/2018 None hypothyroid Quality stab le 01/28/2018 None anxiety Onset and Resolution ongoing 01/28/2018 None anxiety Alleviating Factors medication 01/28/2018 None medication follow up Location oral intake 11/12/2017 None depression Quality const ant 09/16/2017 None depression Onset and Resolution sudden in onset 09/16/2017 None depression Onset of Symptom 4 months ago 09/16/2017 None medication follow up Additional Comments medication use 09/16/2017 None medication follow up Location oral intake 09/16/2017 None depression Frequency of Episodes increasing 09/16/2017 None depression Triggers stre ss 09/16/2017 None depression Pertinent Findings agitation 09/16/2017 None depression Pertinent Findings irritability 09/16/2017 None wrist pain Location on t he right 06/30/2017 None wrist pain Quality sharp pain 06/30/2017 None wrist pain Onset and Resolution ongoing 06/30/2017 None wrist pain Onset of Symptom 9 months ago 06/30/2017 None wrist pain Frequency of Episodes daily 06/30/2017 None wrist pain Mechanism of injury unknown 06/30/2017 None disturbances of thinking Quality chronic 06/30/2017 None disturbances of thinking Onset and R esolution ongoing 06/30/2017 None hand pain Location on th e left 02/14/2017 None hand pain Location on th e right 02/14/2017 None hand pain Quality dull p ain 02/14/2017 None hand pain Quality numbne ss 02/14/2017 None hand pain Quality throbb ing 02/14/2017 None hand pain Quality worsen ing 02/14/2017 None hand pain Onset and Resolution sudden in onset 02/14/2017 None hand pain Onset of Symptom 8 months ago 02/14/2017 None hand pain Frequency of Episodes daily 02/14/2017 None hand pain Pertinent Findings numbness 02/14/2017 None hand pain Pertinent Findings stiffness 02/14/2017 None hand pain Pertinent Findings swelling 02/14/2017 None hypothyroid Onset and Resolution ongoing 02/14/2017 None hypothyroid Onset and Resolution sudden in onset 02/14/2017 None hypothyroid Severity mod erate with clinical signs present 02/14/2017 None hypothyroid Significant Medical Conditions recent 02/14/2017 None hypothyroid Pertinent Findings decreased energy 02/14/2017 None hypothyroid Pertinent Findings dysphagia with solids 02/14/2017 None hypothyroid Pertinent Findings Denies hair loss 02/14/2017 None hypothyroid Pertinent Findings hoarseness 02/14/2017 None Symptom Name Status Resu lt Effective Date Notes Quality stable 08/05/2018 None Onset and Resolution o ngoing 08/05/2018 None Alleviating Factors me dication 08/05/2018 None hypothyroid Onset and Resolution ongoing 01/28/2018 None hypothyroid Alleviating Factors medication 01/28/2018 None hypothyroid Quality stab le 01/28/2018 None anxiety Onset and Resolution ongoing 01/28/2018 None anxiety Alleviating Factors medication 01/28/2018 None medication follow up Location oral intake 11/12/2017 None depression Quality const ant 09/16/2017 None depression Onset and Resolution sudden in onset 09/16/2017 None depression Onset of Symptom 4 months ago 09/16/2017 None medication follow up Additional Comments medication use 09/16/2017 None medication follow up Location oral intake 09/16/2017 None depression Frequency of Episodes increasing 09/16/2017 None depression Triggers stre ss 09/16/2017 None depression Pertinent Findings agitation 09/16/2017 None depression Pertinent Findings irritability 09/16/2017 None wrist pain Location on t he right 06/30/2017 None wrist pain Quality sharp pain 06/30/2017 None wrist pain Onset and Resolution ongoing 06/30/2017 None wrist pain Onset of Symptom 9 months ago 06/30/2017 None wrist pain Frequency of Episodes daily 06/30/2017 None wrist pain Mechanism of injury unknown 06/30/2017 None disturbances of thinking Quality chronic 06/30/2017 None disturbances of thinking Onset and R esolution ongoing 06/30/2017 None hand pain Location on th e left 02/14/2017 None hand pain Location on th e right 02/14/2017 None hand pain Quality dull p ain 02/14/2017 None hand pain Quality numbne ss 02/14/2017 None hand pain Quality throbb ing 02/14/2017 None hand pain Quality worsen ing 02/14/2017 None hand pain Onset and Resolution sudden in onset 02/14/2017 None hand pain Onset of Symptom 8 months ago 02/14/2017 None hand pain Frequency of Episodes daily 02/14/2017 None hand pain Pertinent Findings numbness 02/14/2017 None hand pain Pertinent Findings stiffness 02/14/2017 None hand pain Pertinent Findings swelling 02/14/2017 None hypothyroid Onset and Resolution ongoing 02/14/2017 None hypothyroid Onset and Resolution sudden in onset 02/14/2017 None hypothyroid Severity mod erate with clinical signs present 02/14/2017 None hypothyroid Significant Medical Conditions recent 02/14/2017 None hypothyroid Pertinent Findings decreased energy 02/14/2017 None hypothyroid Pertinent Findings dysphagia with solids 02/14/2017 None hypothyroid Pertinent Findings Denies hair loss 02/14/2017 None hypothyroid Pertinent Findings hoarseness 02/14/2017 None Additional Source Comments This clinical document has been generated using [employer] software that has been certified by the Office of the National Coordinator for Health Information Technology (ONC 15.99.04.3023.Diam.[id number]) and the National Committee for Seismograph Shooter (NCQA, as an eMeasure certified technology). FOR RECORDS PERTAINING TO PATIENTS WHO ARE OR HAVE BEEN ENROLLED IN A CHEMICAL D EPENDENCY/SUBSTANCE ABUSE PROGRAM, SOME INFORMATION MAY BE OMITTED. This clinica l summary was aggregated from multiple sources. Caution should be exercised in using it in the provision of clinical care. This summary normalizes information from multiple sources, and as a consequence, information in this document may ma terially change the coding, format and clinical context of patient data. In edy tion, data may be omitted in some cases. CLINICAL DECISIONS SHOULD BE BASED ON T HE PRIMARY CLINICAL RECORDS. [email or web address] provides no warranty or guara ntee of the accuracy or completeness of information in this document.The followi ng information is based on time limited clinical information UNRECOGNIZED CONTENT PROVIDED BELOW FOR UNRECOGNIZED SECTION MEDICAL (GENERAL) HISTORY Type Description Date Medical History Due date September 17 2016 Type Description Date Medical History ADHD Surgical History laproscopic cervica l procedure 2010 Hospitalization History childbirth 2016 UNRECOGNIZED CONTENT PROVIDED BELOW FOR UNRECOGNIZED SECTION REASON FOR VISIT Poison Jaqueline exposure. Twan sanchezu Shot---RACHEL warner
[2019-09-28] VITALS (74 sets, daily range): BP systolic 99–148; BP diastolic 56–87
[2019-09-28] MEDS: MISOPROSTOL 100 MCG (CYTOTEC) TAB PO SCH ×2 (01:01→04:55)
[2019-09-28] MEDS: D5 LR IV SOLUTION 1,000 ML IV SCH ×2 (04:55→13:08)
--- NOTE | 2019-09-28 07:15 | NUR ---
REPROT RECEIVED FROM LYUDMILA RAMOS.
[2019-09-28] MEDS ORDERED: fentaNYL 2 mcg/ml BUPIVA 0.125 100 ML ONE (09:05)
[2019-09-28] MEDS ORDERED: OXYTOCIN PRE-MIX DRIP 500 ML IV ONE (09:06)
[2019-09-28] MEDS ORDERED: OXYTOCIN PRE-MIX DRIP 500 ML IV SCH ×2 (09:19→16:02)
[2019-09-28] MEDS ORDERED: fentaNYL INJECTION 100 MCG/2 ML AMP ONE (09:33)
[2019-09-28] MEDS ORDERED: BUPIVACAINE 0.25% 30 ML (SENSORCAINE) VIAL ONE (09:33)
[2019-09-28] MEDS ORDERED: fentaNYL 2 mcg/ml BUPIVA 0.125 100 ML IV SCH (10:14)
[2019-09-28] MEDS ORDERED: LACTATED RINGERS 1,000 ML IV ONE (10:14)
[2019-09-28] MEDS ORDERED: NALOXONE 0.4 MG/ML 1 ML (NARCAN) VIAL IV PRN (10:15)
[2019-09-28] MEDS ORDERED: CATHETER FLUSH 10 ML SYR IV PRN (10:15)
[2019-09-28] MEDS ORDERED: EPIDURAL (fentaNYL 2 MCG/ML BUPIVA 0.125%)100 ML BAG EPI SCH (10:15)
[2019-09-28] MEDS ORDERED: LIDOCAINE PF 2% 5 ML (XYLOCAINE) VIAL ONE (13:33)
[2019-09-28] MEDS ORDERED: LIDOCAINE/EPI 2% 1:200,00 (XYLOCAINE) 20 ML VIAL ONE (14:33)
[2019-09-28] MEDS ORDERED: DCS100C PO (16:09)
[2019-09-28] MEDS ORDERED: ACET-93 PO (16:09)
[2019-09-28] MEDS ORDERED: FERR325T18 PO (16:09)
[2019-09-28] MEDS ORDERED: IBUP-844 PO (16:09)
--- NOTE | 2019-09-28 16:12 | Discharge Inst-Women's Service ---
Discharge Inst-Women's Serv Depart Medication/Instructions New, Converted or Re-Newed RX: Transmitted to Pharmacy Final Diagnosis social induction 39 week gestation hypothroidism Problems Reviewed?: Yes Consults/Follow Up Additional Follow Up: Yes Activity Activity: Activity as Tolerated Driving Instructions: You May Drive NO SMOKING: NO SMOKING Nothing Inside Vagina: No Douching, No [place], No Tampons Diet Discharge Diet: No Restrictions Symptoms to Report to : Swelling Increased, Bleeding Excessive, Pain Increased, Fever Over 101 Degrees F, Vaginal Bleeding Increase, Cramps in Feet or Legs, Vaginal Discharge Foul For Any Problems or Questions: Contact Your Physician AYAN PALM DO Sep 28, 2019 16:12
[2019-09-28] MEDS ORDERED: diphenhydrAMINE 50 MG/ML INJ (BENADRYL) ONE (16:14)
--- NOTE | 2019-09-28 16:14 | Discharge Inst-Women's Service ---
Discharge Inst-Women's Serv Depart Medication/Instructions New, Converted or Re-Newed RX: RX on Chart Final Diagnosis social induction hypothryoidism vaginal delivery 39 week gestation Problems Reviewed?: Yes Consults/Follow Up Additional Follow Up: Yes (6 week) Activity Activity: Activity as Tolerated Driving Instructions: You May Drive NO SMOKING: NO SMOKING Nothing Inside Vagina: No Douching, No [place], No Tampons Diet Discharge Diet: No Restrictions Symptoms to Report to : Swelling Increased, Bleeding Excessive, Pain Increased, Fever Over 101 Degrees F, Vaginal Bleeding Increase, Cramps in Feet or Legs, Vaginal Discharge Foul For Any Problems or Questions: Contact Your Physician AYAN PALM DO Sep 28, 2019 16:14
[2019-09-28] MEDS ORDERED: MEASLES,MUMPS,RUBELLA 1 EA INJ SQ ONE (16:15)
[2019-09-28] MEDS ORDERED: WITCH HAZEL(TUCKS) 40 EA JAR TOP PRN (16:15)
[2019-09-28] MEDS ORDERED: BENZOCAINE/MENTHOL (DERMOPLAST) 60 ML CAN TP PRN (16:15)
[2019-09-28] MEDS ORDERED: TETANUS,DIPTH,PERTUSS P/F (BOOSTRIX) 0.5 ML VIAL IM ONE (16:15)
[2019-09-28] MEDS ORDERED: diphenhydrAMINE 50 MG/ML INJ (BENADRYL) IVP ONE (16:16)
--- NOTE | 2019-09-28 18:24 | OB Labor & Delivery Record ---
Vag Delivery Note Vag Delivery Note Date of Delivery: 09/28/19 Preoperative Diagnosis: Neeru Luna is a 33 /Para 2/1 ,Gestational Age 39 weeks, for induction of labor (socia) Postoperative Diagnosis: Same Surgeon: AYAN PALM Anesthesia: epidural Delivery Type: vaginal Findings: Viable female , apgars pending, weight pending Lacerations: abrasion Intact placenta with 3 vessel cord. There was nuchal cord and body cord, but no shoulder dystocia Estimated Blood Loss: 200 ml Complications: None Condition: Stable Description of Procedure: The patient is a 33 year old female who presented for cervical ripening and induction of labor. She was admitted and informed consent was obtained. Her labor course was remarkable for misorprostol, then AROM and augmentation with pitocin. She progressed to complete dilatation and began to push. She was then set up for delivery. The infant's head was delivered atraumatically in the REY position. The shoulders and remainder of the infant's body were then delivered without difficulty. Upon delivery, the head was held below the level of the perineum and the mouth and nares were bulb suctioned. The cord was doubly clamped and cut and the was handed off to the pediatric staff. An intact placenta with 3-vessel cord delivered via Vivian and there was found to be minimal bleeding.~ Vigorous fundal massage was performed and the fundus was found to be firm. IV oxytocin was given. Examination of the vagina and perineum revealed a perineal abrasion that did not require repair. Following the delivery, sponge, instrument and needle counts were correct. Mom and baby were both in stable condition in the labor suite. Vitals - Labs Vital Signs - I&O Vital Signs Date Time Temp Pulse Resp B/P (MAP) Pulse Ox O2 Delivery O2 Flow Rate FiO2 09/28/19 16:31 80 139/80 (99) Room Air 09/28/19 16:15 72 18 133/75 (94) Non Rebreather 15.00 09/28/19 16:00 65 18 123/75 (91) Non Rebreather 15.00 09/28/19 15:54 Non Rebreather 15.00 09/28/19 15:47 68 18 135/79 (97) Room Air 09/28/19 15:30 75 18 136/85 (102) Room Air 09/28/19 15:15 71 18 142/85 (104) Room Air 09/28/19 15:00 37.0 71 18 138/74 (95) 100 Room Air 09/28/19 14:45 71 18 138/81 (100) 100 Room Air 09/28/19 14:30 72 18 135/75 (95) 100 Room Air 09/28/19 14:15 73 18 119/77 (91) 99 Room Air 09/28/19 14:10 71 18 112/74 (87) 98 Room Air 09/28/19 14:05 69 18 111/73 (86) 98 Room Air 09/28/19 14:00 65 18 114/73 (87) 98 Room Air 09/28/19 13:55 67 18 106/56 (73) 98 Room Air 09/28/19 13:50 71 18 105/64 (78) 99 Room Air 09/28/19 13:45 69 18 113/64 (80) 99 Room Air 09/28/19 13:42 37.0 77 18 118/67 (84) 98 Room Air 09/28/19 13:28 61 18 109/64 (79) 97 Room Air 09/28/19 13:15 68 18 121/69 (86) 98 Room Air 09/28/19 10:25 73 18 119/80 (93) 99 Room Air 09/28/19 10:22 71 18 122/81 (95) 99 Room Air 09/28/19 10:19 77 18 123/77 (92) 100 Room Air 09/28/19 10:16 70 18 124/76 (92) 100 Room Air 09/28/19 10:13 77 18 124/81 (95) 100 Room Air 09/28/19 10:10 68 18 121/75 (90) 100 Room Air 09/28/19 10:06 71 18 121/76 (91) 100 Room Air 09/28/19 10:03 73 18 128/77 (94) 100 Room Air 09/28/19 10:00 76 18 121/74 (90) 100 Room Air 09/28/19 09:58 87 18 116/75 (89) 100 Room Air 09/28/19 09:54 36.6 84 18 118/81 (93) 100 Room Air 09/28/19 09:00 68 18 126/79 (95) Room Air 6/16/20 08:00 68 18 124/76 (92) 98 Room Air 09/28/19 07:53 68 18 114/73 (87) Room Air 09/28/19 07:30 36.4 67 18 130/75 (93) 98 Room Air 09/28/19 07:00 71 18 99/65 (76) Room Air 09/28/19 05:58 72 18 115/64 (81) Room Air 09/28/19 04:56 36.0 67 18 109/58 (75) Room Air 09/28/19 04:00 78 18 121/64 (83) Room Air 09/28/19 03:00 70 18 115/67 (83) Room Air 09/28/19 02:00 65 18 108/60 (76) Room Air 09/28/19 01:00 36.8 75 18 109/66 (80) 09/28/19 00:00 76 18 114/68 (83) 98 Room Air 09/27/19 23:00 68 18 118/73 (88) 09/27/19 22:00 36.2 63 18 118/73 (88) 09/27/19 21:10 75 18 109/71 (84) 09/27/19 20:30 36.6 71 18 121/80 (94) 98 Room Air 09/27/19 20:30 36.6 71 20 98 Room Air I & O 09/28/19 07:00 Intake Total 2000 ml Balance 2000 ml Labs Laboratory Tests 09/27/19 20:30: White Blood Count 8.8, Red Blood Count 3.90L, Hemoglobin 12.3, Hematocrit 36, Mean Corpuscular Volume 92, Mean Corpuscular Hemoglobin 32, Mean Corpuscular Hemoglobin Concent 34, Red Cell Distribution Width 13.5, Platelet Count 166, Mean Platelet Volume 11.1H, Neutrophils (%) (Auto) 70, Lymphocytes (%) (Auto) 24, Monocytes (%) (Auto) 6, Eosinophils (%) (Auto) 1, Basophils (%) (Auto) 0, Neutrophils # (Auto) 6.2, Lymphocytes # (Auto) 2.1, Monocytes # (Auto) 0.5, Eosinophils # (Auto) 0.1, Basophils # (Auto) 0.0, Urine Color YELLOW, Urine Clarity CLEAR, Urine pH 6.0, Urine Specific [place] 1.020, Urine Protein NEGATIVE, Urine Glucose (UA) NEGATIVE, Urine Ketones NEGATIVE, Urine Nitrite NEGATIVE, Urine Bilirubin NEGATIVE, Urine Urobilinogen 0.2, Urine Leukocyte Esterase NEGATIVE, Urine RBC (Auto) NEGATIVE, Urine RBC NONE, Urine WBC NONE, Urine Squamous Epithelial Cells 2-5, Urine Crystals NONE, Urine Bacteria TRACE, Urine Casts NONE, Urine Mucus SMALLH, Urine Culture Indicated NO AYAN PALM DO Sep 28, 2019 18:24
[2019-09-28] MEDS: IBUPROFEN 600 MG (MOTRIN) TAB PO SCH (18:34)
--- NOTE | 2019-09-28 19:40 | NUR ---
FF 1 below umbilicus, light rubra bleeding, no clots noted.
--- NOTE | 2019-09-28 19:45 | NUR ---
Patient ambulated to bathroom with standby assist without difficulty. Positive void noted.
--- NOTE | 2019-09-28 20:00 | NUR ---
FF 1 below umbilicus, light rubra bleeding, no clots noted.
--- NOTE | 2019-09-28 20:55 | NUR ---
Patient transferred to PP room 310 via wheelchair, accompanied by staff, , and in open crib. Patient oriented to room, call light, thermostat, and dietary menu. PP folder provided and explained. No questions or concerns voiced at this time.
[2019-09-28] MEDS: ACETAMINOPHEN 500 MG TAB (TYLENOL) PO SCH (21:19)
[2019-09-28] MEDS: DOCUSATE SODIUM 100 MG (COLACE) CAP PO SCH (21:19)
[2019-09-28] MEDS ORDERED: CATHETER FLUSH 10 ML SYR IV SCH (22:00)
[2019-09-29] MEDS: IBUPROFEN 600 MG (MOTRIN) TAB PO SCH ×4 (00:08→17:47)
[2019-09-29] MEDS ORDERED: PRENATAL VITAMIN 1 EA TAB PO ONE (00:09)
[2019-09-29 00:10] VITALS: BP 103/65
[2019-09-29 04:50] VITALS: BP 107/71
[2019-09-29 05:53] LABS: BASOPHILS % (AUTO) 0 % (0-10); EOSINOPHILS % (AUTO) 0 % (0-10); HEMATOCRIT 35 % (35-52); HEMOGLOBIN 11.8 G/DL (11.5-16.0); LYMPHOCYTES # (AUTO) 2.1 X 10^3 (1.0-4.0); LYMPHOCYTES % (AUTO) 21 % (12-44); MEAN CORPUSCULAR HEMOGLOBIN 32 PG (25-34); MEAN CORPUSCULAR HGB CONC 34 G/DL (32-36); MEAN CORPUSCULAR VOLUME 93 FL (80-99); MEAN PLATELET VOLUME 10.7 FL (7.4-10.4); MONOCYTES # (AUTO) 0.6 X 10^3 (0.0-1.0); MONOCYTES % (AUTO) 6 % (0-12); NEUTROPHILS # (AUTO) 7.5 X 10^3 (1.8-7.8); NEUTROPHILS % (AUTO) 73 % (42-75); PLATELET COUNT 128 10^3/uL (130-400); RED CELL DISTRIBUTION WIDTH 13.7 % (10.0-14.5); WHITE BLOOD COUNT 10.3 10^3/uL (4.3-11.0)
[2019-09-29] MEDS: ACETAMINOPHEN 500 MG TAB (TYLENOL) PO SCH ×2 (06:13→14:20)
[2019-09-29] MEDS ORDERED: PRENATAL VITAMIN 1 EA TAB PO SCH (07:00)
--- NOTE | 2019-09-29 07:46 | Postpartum Progress Note ---
Note Note Day # 1 Subjective: Patient is without complaints. Ambulating, voiding. Tolerating a regular diet without nausea or vomiting. Normal lochia. Pain is well controlled with oral pain medications. Objective: Physical Exam: General - Alert and oriented, no apparent distress Abdomen - Soft, appropriately tender to palpation, non-distended, fundus firm at umbilicus Extremities - no edema, negative John's bilaterally Assessment: PPD 1 NVD Plan: Routine care. Encourage breast feeding. Encourage ambulation. Ferrous sulfate supplementation. Plan for discharge today Vitals - Labs Vital Signs - I&O Vital Signs Date Time Temp Pulse Resp B/P (MAP) Pulse Ox O2 Delivery O2 Flow Rate FiO2 09/29/19 04:50 36.2 67 16 107/71 (83) 98 Room Air 09/29/19 00:10 36.7 71 16 103/65 (78) 97 Room Air 09/28/19 20:38 77 16 111/65 (80) Room Air 09/28/19 19:58 75 16 118/72 (87) Room Air 09/28/19 19:40 37.4 88 16 133/87 (102) Room Air 09/28/19 19:31 89 16 129/74 (92) Room Air 09/28/19 19:15 69 18 114/73 (87) Room Air 09/28/19 19:00 72 18 121/75 (90) Room Air 09/28/19 18:45 71 18 120/77 (91) Room Air 09/28/19 18:30 78 18 121/77 (92) Room Air 09/28/19 18:20 37.1 88 18 120/64 (82) Room Air 09/28/19 18:00 91 18 120/58 (78) Room Air 09/28/19 17:45 72 18 143/85 (104) Non Rebreather 15.00 09/28/19 17:30 77 18 144/85 (104) Non Rebreather 15.00 09/28/19 17:17 74 18 148/85 (106) Non Rebreather 15.00 09/28/19 17:00 37.2 82 18 140/83 (102) Non Rebreather 15.00 09/28/19 16:47 73 18 140/83 (102) Non Rebreather 15.00 09/28/19 16:40 Non Rebreather 15.00 09/28/19 16:31 80 139/80 (99) Room Air 09/28/19 16:15 72 18 133/75 (94) Non Rebreather 15.00 09/28/19 16:00 65 18 123/75 (91) Non Rebreather 15.00 09/28/19 15:54 Non Rebreather 15.00 09/28/19 15:47 68 18 135/79 (97) Room Air 09/28/19 15:30 75 18 136/85 (102) Room Air 09/28/19 15:15 71 18 142/85 (104) Room Air 09/28/19 15:00 37.0 71 18 138/74 (95) 100 Room Air 09/28/19 14:45 71 18 138/81 (100) 100 Room Air 09/28/19 14:30 72 18 135/75 (95) 100 Room Air 09/28/19 14:15 73 18 119/77 (91) 99 Room Air 09/28/19 14:10 71 18 112/74 (87) 98 Room Air 09/28/19 14:05 69 18 111/73 (86) 98 Room Air 09/28/19 14:00 65 18 114/73 (87) 98 Room Air 09/28/19 13:55 67 18 106/56 (73) 98 Room Air 09/28/19 13:50 71 18 105/64 (78) 99 Room Air 09/28/19 13:45 69 18 113/64 (80) 99 Room Air 09/28/19 13:42 37.0 77 18 118/67 (84) 98 Room Air 09/28/19 13:28 61 18 109/64 (79) 97 Room Air 09/28/19 13:15 68 18 121/69 (86) 98 Room Air 09/28/19 13:02 68 18 122/65 (84) 98 Room Air 09/28/19 12:57 67 18 114/71 (85) 98 Room Air 09/28/19 12:45 66 18 121/71 (88) 97 Room Air 09/28/19 12:26 63 18 117/70 (86) 98 Room Air 09/28/19 12:22 63 18 114/75 (88) 97 Room Air 09/28/19 12:11 75 18 110/67 (81) 98 Room Air 09/28/19 11:57 66 18 116/72 (87) 97 Room Air 09/28/19 11:40 37.1 64 18 109/66 (80) 98 Room Air 09/28/19 11:26 64 18 108/64 (79) 98 Room Air 09/28/19 11:08 64 18 107/64 (78) 96 Room Air 09/28/19 11:02 37.1 62 18 106/61 (76) 97 Room Air 09/28/19 10:58 65 18 107/67 (80) 98 Room Air 09/28/19 10:52 86 18 116/71 (86) 98 Room Air 09/28/19 10:48 69 18 129/67 (87) 99 Room Air 09/28/19 10:43 67 18 113/73 (86) 99 Room Air 09/28/19 10:39 66 18 114/76 (89) 98 Room Air 09/28/19 10:30 68 18 120/78 (92) 98 Room Air 09/28/19 10:25 73 18 119/80 (93) 99 Room Air 09/28/19 10:22 71 18 122/81 (95) 99 Room Air 09/28/19 10:19 77 18 123/77 (92) 100 Room Air 09/28/19 10:16 70 18 124/76 (92) 100 Room Air 09/28/19 10:13 77 18 124/81 (95) 100 Room Air 09/28/19 10:10 68 18 121/75 (90) 100 Room Air 09/28/19 10:06 71 18 121/76 (91) 100 Room Air 09/28/19 10:03 73 18 128/77 (94) 100 Room Air 09/28/19 10:00 76 18 121/74 (90) 100 Room Air 09/28/19 09:58 87 18 116/75 (89) 100 Room Air 09/28/19 09:54 36.6 84 18 118/81 (93) 100 Room Air 09/28/19 09:00 68 18 126/79 (95) Room Air 09/28/19 08:00 68 18 124/76 (92) 98 Room Air 09/28/19 07:53 68 18 114/73 (87) Room Air I & O 09/29/19 07:00 Intake Total 3700 ml Output Total 750 ml Balance 2950 ml Labs Laboratory Tests 09/29/19 05:39: White Blood Count 10.3, Red Blood Count 3.74L, Hemoglobin 11.8, Hematocrit 35, Mean Corpuscular Volume 93, Mean Corpuscular Hemoglobin 32, Mean Corpuscular Hemoglobin Concent 34, Red Cell Distribution Width 13.7, Platelet Count 128L, Mean Platelet Volume 10.7H, Neutrophils (%) (Auto) 73, Lymphocytes (%) (Auto) 21, Monocytes (%) (Auto) 6, Eosinophils (%) (Auto) 0, Basophils (%) (Auto) 0, Neutrophils # (Auto) 7.5, Lymphocytes # (Auto) 2.1, Monocytes # (Auto) 0.6, Eosinophils # (Auto) 0.0, Basophils # (Auto) 0.0 MARIE RIVAS DO Sep 29, 2019 07:46
[2019-09-29 08:00] VITALS: BP 132/85
--- NOTE | 2019-09-29 08:00 | NUR ---
A.M. ASSESSMENT COMPLETED. VSS. CARING FOR IN ROOM. SPOUSE AT BEDSIDE. GOOD INTERACTION NOTED.
[2019-09-29] MEDS ORDERED: FERROUS SULF 325 MG (IRON) TAB PO SCH (09:00)
--- NOTE | 2019-09-29 09:30 | NUR ---
ASSISTED WITH SUCTIONING WITH BULB SYRINGE. MOM PLACED CALL LIGHT ON WITH CONCERNS OVER INFANT GAGGING AND SPITTING UP. SMALL AMOUNT OF MUCOUS NOTED WITH BULB SYRINGE. INSTRUCTED PARENTS ON US OF BULB SYRINGE.
[2019-09-29] MEDS: DOCUSATE SODIUM 100 MG (COLACE) CAP PO SCH (10:03)
[2019-09-29 12:30] VITALS: BP 128/78
--- NOTE | 2019-09-29 13:00 | NUR ---
EATING STORK MEAL. IN ROOM.
--- NOTE | 2019-09-29 13:11 | Anesthesia-Regional Post-Op ---
Regional Patient Condition Mental Status: Alert, Oriented x3 Circulation: Same as Pre-Op Headache: Absent Sensation: Full Recovery Motor Block: Absent Post Op Complications Complications None Follow Up Care/Instructions Patient Instructions None needed. Anesthesia/Patient Condition Patient is doing well, no complaints, stable vital signs, no apparent adverse anesthesia problems. No complications reported per nursing. SYDNI SANCHEZ CRNA Sep 29, 2019 13:11
--- NOTE | 2019-09-29 15:30 | NUR ---
CONTINUES TO DO WELL. HOPING TO GO HOME THIS EVENING.
[2019-09-29 17:30] VITALS: BP 128/88
--- NOTE | 2019-09-29 17:30 | NUR ---
VSS. WAITING FOR 'S 24 HOUR SCREEN.
[2019-09-29 19:15] VITALS: BP 128/88
--- NOTE | 2019-09-29 19:15 | NUR ---
Discharge instructions read and reviewed by pt, signed, verbalized understanding. Ambulated off unit with this RN, FOB and . to private vehicle.
== END 2019-09-29 19:25 | disposition home or self-care (01) | DRG 807 ==
LOC: LDRP 20:04
PROVIDERS: ADMIT Obstetrics & Gynecology; ATTEND Obstetrics & Gynecology
PROC: 10E0XZZ Delivery of Products of Conception, External Approach (ICD-10-PCS; principal; 2019-09-28)
PROC: 10907ZC Drainage of Amniotic Fluid, Therapeutic from Products of Conception, Via Natural or Artificial Opening (ICD-10-PCS; 2019-09-28)
DX: O99.284 Endocrine, nutritional and metabolic diseases complicating childbirth (principal); Z37.0 Single live birth; Z3A.39 39 weeks gestation of pregnancy
CPT/HCPCS: 36415; 81000; 85025; 86850; 86900; 86901

== ENCOUNTER → 2021-07-24 | Outpatient (CLI) | payer OTHER ==
[~2021-07-24] MED LIST changes: +ACET-93 PO; +DOCU-239 PO; +IBUP-844 PO; +LEVO100T7 PO; +PREN1TAB79 PO
--- NOTE | 2021-07-24 16:00 | Diagnostic Imaging Report ---
PROCEDURE: Pelvic comp/transvaginal sonogram. TECHNIQUE: Complete transabdominal and transvaginal pelvic ultrasound was performed. In addition, limited pelvic Doppler was performed. INDICATION: Abnormal uterine bleeding. Patient has history of endometriosis. FINDINGS: The uterus is anteverted measuring 6.2 x 3.5 x 4.9 cm. The endometrium is 4 mm in thickness. No myometrial mass is detected. The right ovary measures 2.7 x 1.0 x 1.9 cm and the left ovary measures 2.5 x 1.4 x 2.2 cm. Both ovaries contain small follicles. There is blood flow to both ovaries. No adnexal mass or free pelvic fluid is detected. IMPRESSION: Unremarkable transabdominal and transvaginal pelvic ultrasound. Dictated by: Dictated on workstation # [id number]
== END ==
LOC: RAD 14:00
PROVIDERS: ATTEND Obstetrics & Gynecology
DX: N93.9 Abnormal uterine and vaginal bleeding, unspecified (principal)
CPT/HCPCS: 76830; 76856

== ENCOUNTER → 2022-11-19 | Outpatient (CLI) | payer OTHER ==
--- NOTE | 2022-11-20 10:36 | Diagnostic Imaging Report ---
INDICATION: anatomy survey. TECHNIQUE: Multiple real-time grayscale images were obtained over the gravid uterus. COMPARISON: None FINDINGS: Live twin gestation is noted. The cervix measures 3.9 cm in length. Fetus A: For purposes of this dictation, fetus A is to maternal left and in cephalic presentation. Placenta is anterior position and there is no previa. Heart rate is 160 bpm. The amount of amniotic fluid appears age-appropriate. The following anatomy is visualized and normal: Profile, cerebral ventricles, posterior fossa, four-chamber heart, stomach, kidneys, umbilical cord insertion, three-vessel cord, urinary bladder, lips/nose, right ventricular fracture tract, left ventricular outflow tract, and spine. Biometrical measurements for fetus A are as follows: Biparietal 4.90 cm, age 20 weeks 6 days. Head circumference 18.36 cm, age 20 weeks 6 days. Abdominal circumference 15.74 cm, age 21 weeks 0 days. Femur length 3.28 cm, age 20 weeks 2 days. Sonographic estimate age: 20 weeks 6 days. Sonographic estimated date of delivery: 04/02/2023. Estimated Weight: 366 gm (+/- 54 gm). LMP percentile: 72%. number: 1 of 2. Fetus B: For the purposes of this dictation, fetus B is to maternal right and in breech presentation. Placenta is posterior position and there is no previa. heart rate is 165 bpm. The amount of amniotic fluid appears visually appropriate. The following anatomy is visualized and normal: Cerebral ventricles, posterior fossa, lips/nose, left ventricular outflow tract, right ventricular outflow tract, four-chamber heart, stomach, three-vessel cord, kidneys, umbilical cord insertion, urinary bladder, and spine. Biometrical measurements for fetus B are as follows: Biparietal 4.8 cm, age 20 weeks 4 days. Head circumference 18.23 cm, age 20 weeks 5 days. Abdominal circumference 15.62 cm, age 20 weeks 6 days. Femoral length 3.39 cm, age 20 weeks 5 days. Sonographic estimate age: 20 weeks 5 days. Sonographic estimated date of delivery: 04/02/2023. Estimated weight: 371 g (+/- 55 g). LMP percentile: 76%. number: 2 of 2. IMPRESSION: 1. Live twin gestations, both with normal anatomy survey. Dictated by: Dictated on workstation # [id number]
--- NOTE | 2022-11-20 16:53 | Diagnostic Imaging Report ---
INDICATION: anatomy survey. TECHNIQUE: Multiple real-time grayscale images were obtained over the gravid uterus. COMPARISON: None FINDINGS: Live twin gestation is noted. The cervix measures 3.9 cm in length. Fetus A: For purposes of this dictation, fetus A is to maternal left and in cephalic presentation. Placenta is anterior position and there is no previa. Heart rate is 160 bpm. The amount of amniotic fluid appears age-appropriate. The following anatomy is visualized and normal: Profile, cerebral ventricles, posterior fossa, four-chamber heart, stomach, kidneys, umbilical cord insertion, three-vessel cord, urinary bladder, lips/nose, right ventricular fracture tract, left ventricular outflow tract, and spine. Biometrical measurements for fetus A are as follows: Biparietal 4.90 cm, age 20 weeks 6 days. Head circumference 18.36 cm, age 20 weeks 6 days. Abdominal circumference 15.74 cm, age 21 weeks 0 days. Femur length 3.28 cm, age 20 weeks 2 days. Sonographic estimate age: 20 weeks 6 days. Sonographic estimated date of delivery: 04/02/2023. Estimated Weight: 366 gm (+/- 54 gm). LMP percentile: 72%. number: 1 of 2. Fetus B: For the purposes of this dictation, fetus B is to maternal right and in breech presentation. Placenta is posterior position and there is no previa. heart rate is 165 bpm. The amount of amniotic fluid appears visually appropriate. The following anatomy is visualized and normal: Cerebral ventricles, posterior fossa, lips/nose, left ventricular outflow tract, right ventricular outflow tract, four-chamber heart, stomach, three-vessel cord, kidneys, umbilical cord insertion, urinary bladder, and spine. Biometrical measurements for fetus B are as follows: Biparietal 4.8 cm, age 20 weeks 4 days. Head circumference 18.23 cm, age 20 weeks 5 days. Abdominal circumference 15.62 cm, age 20 weeks 6 days. Femoral length 3.39 cm, age 20 weeks 5 days. Sonographic estimate age: 20 weeks 5 days. Sonographic estimated date of delivery: 04/02/2023. Estimated weight: 371 g (+/- 55 g). LMP percentile: 76%. number: 2 of 2. Biometrical measurements are as follows: Biparietal 4.80 cm, age 20 weeks 4 days. Head circumference 18.23 cm, age 20 weeks 5 days. Abdominal circumference 15.62 cm, age 20 weeks 6 days. Femur length 3.39 cm, age 20 weeks 5 days. Sonographic estimate age: 20 weeks 5 days. Sonographic estimated date of delivery: 04/03/2023. Estimated Weight: 371 gm (+/- 55 gm). LMP percentile: 76%. heart rate: 165 beats per minute. number: 2 of 2. IMPRESSION: 1. Live twin gestations, both with normal anatomy survey. Dictated by: Dictated on workstation # [id number]
== END ==
LOC: RAD 09:51
PROVIDERS: ATTEND Obstetrics & Gynecology
DX: Z36.87 Encounter for antenatal screening for uncertain dates (principal); Z3A.20 20 weeks gestation of pregnancy
CPT/HCPCS: 76805; 76810

== ENCOUNTER → 2023-02-21 | Outpatient (CLI) | payer OTHER ==
[2023-02-21 10:20] LABS: URINE CREATININE FOR RATIO 24 MG/DL (30-125); URINE PROTEIN FOR RATIO ONLY < 6 MG/DL (6-12)
== END ==
LOC: LABNPT 09:20
PROVIDERS: ATTEND Obstetrics & Gynecology
DX: O13.9 Gestational [pregnancy-induced] hypertension without significant proteinuria, unspecified trimester (principal); Z3A.00 Weeks of gestation of pregnancy not specified
CPT/HCPCS: 82570; 84156

== ENCOUNTER → 2023-03-10 | Outpatient (CLI) | payer OTHER ==
[~2023-03-10] MED LIST changes: +IBUP-1780 PO; +LABE200T10 PO
== END ==
LOC: LABNPT 11:47
PROVIDERS: ATTEND Obstetrics & Gynecology
DX: O13.9 Gestational [pregnancy-induced] hypertension without significant proteinuria, unspecified trimester (principal); Z3A.00 Weeks of gestation of pregnancy not specified
CPT/HCPCS: 82570; 84156

== ENCOUNTER 2023-03-14 10:15 | Inpatient (IN) | payer OTHER ==
[2023-03-14] VITALS (17 sets, daily range): BP systolic 126–172; BP diastolic 75–110
[~2023-03-14 10:15] MED LIST changes: -IBUP-1780 PO; -LABE200T10 PO
[2023-03-14] MEDS ORDERED: LACTATED RINGERS 1,000 ML 1,000 ML IV PRN (10:30)
[2023-03-14] MEDS ORDERED: CITRIC ACID/SODIUM CITRATE ORAL SOLN 30 ML PO ONE (10:30)
[2023-03-14] MEDS ORDERED: FAMOTIDINE INJ 20MG/2ML VIAL IV ONE (10:30)
[2023-03-14] MEDS ORDERED: METOCLOPRAMIDE INJ 10 MG/2 ML IV ONE (10:30)
[2023-03-14 11:09] LABS: EOSINOPHILS % (AUTO) 1 % (0-10); HEMOGLOBIN 12.6 g/dL (11.5-16.0); MEAN CORPUSCULAR VOLUME 94 fL (80-99); MONOCYTES # (AUTO) 0.4 10^3/uL (0.0-1.0)
[2023-03-14 11:11] LABS: BASOPHILS % (AUTO) 0 % (0-10); HEMATOCRIT 37 % (35-52); LYMPHOCYTES # (AUTO) 1.6 10^3/uL (1.0-4.0); LYMPHOCYTES % (AUTO) 26 % (12-44); MEAN CORPUSCULAR HEMOGLOBIN 32 pg (25-34); MEAN CORPUSCULAR HGB CONC 35 g/dL (32-36); MEAN PLATELET VOLUME 11.5 fL (9.0-12.2); MONOCYTES % (AUTO) 6 % (0-12); NEUTROPHILS # (AUTO) 4.2 10^3/uL (1.8-7.8); NEUTROPHILS % (AUTO) 67 % (42-75); PLATELET COUNT 120 10^3/uL (130-400); WHITE BLOOD COUNT 6.4 10^3/uL (4.3-11.0)
[2023-03-14] MEDS ORDERED: MAGNESIUM SULFATE DRIP 500 ML IV ONE (11:13)
[2023-03-14] MEDS ORDERED: D5 LR 1,000 ML IV SOLN 1,000 ML IV ONE (11:14)
[2023-03-14] MEDS ORDERED: MAGNESIUM 4 GM/100 ML IVPB 100 ML IV ONE (11:15)
[2023-03-14] MEDS ORDERED: OXYTOCIN DRIP PRE-MIX 1,000 ML IV ONE (11:18)
[2023-03-14] MEDS ORDERED: fentaNYL INJECTION 100 MCG/2 ML VIAL ONE (11:18)
[2023-03-14] MEDS: MAGNESIUM SULFATE DRIP 500 ML IV SCH (11:27)
[2023-03-14] MEDS ORDERED: NALOXONE 0.4 MG/ML 1 ML VIAL IV PRN (11:30)
[2023-03-14] MEDS ORDERED: MEASLES, MUMPS, RUBELLA VACCINE (MMR) SC SCH (11:30)
[2023-03-14] MEDS ORDERED: Tetanus/Diphtheria/Pertussis (Acell) ADULT Vaccine 0.5 ML IM SCH (11:30)
[2023-03-14] MEDS ORDERED: ONDANSETRON INJECTION 4 MG/2 ML (SDV) IVP PRN (11:30)
[2023-03-14] MEDS ORDERED: ceFAZolin INJECTION 2,000 MG ONE (11:34)
[2023-03-14] MEDS ORDERED: NS (IVPB) 50 ML 50 ML ONE (11:35)
--- NOTE | 2023-03-14 11:38 | History & Physical-OB ---
OB - Chief Complaint & HPI Date/Time Date of Admission: Date of Admission: Mar 14, 2023 at 10:15 Date seen by a Provider: Mar 14, 2023 Time Seen by a Provider: 11:00 Chief Complaint/History OB-Reason for Admission/Chief: Obstetrical Complication Hx : 3 Hx Para: 2 Expected Date of Delivery: Apr 07, 2023 Gestational Age in Weeks: 36 Gestational Age in Days: 4 Indication for : malpresentation Other reason for admission: Patient sent from office due to severe preE criteria met with BP > 160/110. PCS planned due to malpresentation of twin gestation. Admission Nurse Assessment Rev: Yes Allergies and Home Medications Allergies Coded Allergies: No Known Drug Allergies (Unverified , 12/09/11) Patient Home Medication List Home Medication List Reviewed: Yes Acetaminophen (Acetaminophen) 500 Mg Tablet, 1,000 MG PO Q8HR Prescribed by: AYAN PALM on 09/28/191608 Docusate Sodium (Dok) 100 Mg Capsule, 100 MG PO BID Prescribed by: AYAN PALM on 09/28/19 160 Ferrous Sulfate (Ferrous Sulfate) 325 Mg Tablet, 325 MG PO DAILY Prescribed by: AYAN PALM on 09/28/19 160 Ibuprofen (Ibu) 600 Mg Tablet, 600 MG PO Q6HR Prescribed by: AYAN PALM on 09/28/19 160 Levothyroxine Sodium (Levothyroxine Sodium) 100 Mcg Tablet, 100 MCG PO DAILY, (Reported) Entered as Reported by: DANIEL TELLES on 09/27/192057 Vit W-Ca,Fe,FA(<1 mg) ( Vitamins) 1 Each Tablet, 1 EACH PO, (Reported) Entered as Reported by: DANIEL TELLES on 09/27/192057 OB - History Hx of Present Care: Yes Ultrasounds: Abnormal US findings (di/di twins) Obstetrical Complications: Pre-eclampsia Medical Complications: None Delivery History Hx Blood Disorders: No Adverse Rxn to Tranfusion: No Patient Past Medical History [place] Immunizations Hepatitis A: No Hepatitis B: Yes Tetanus Booster (TDap): Less than 5yrs OB - Admission Exam Physical Exam HEENT: NCAT Heart: Rhythm Normal Lungs: Clear Abdomen: Gravid Extremities: Edema (+3 pitting) Reflexes: Normal Heart Rate: 130's Accelerations: Accelerations Present Decelerations: No Decelerations Short Term Variability: Present Prison Variability: Average (6-25) Contractions on Admission: 6-10 Minutes Apart Intensity: Mild Labs Laboratory Tests Test 03/14/23 10:55 Range/Units White Blood Count 6.4 4.3-11.0 10^3/uL Red Blood Count 3.89 3.80-5.11 10^6/uL Hemoglobin 12.6 11.5-16.0 g/dL Hematocrit 37 35-52 % Mean Corpuscular Volume 94 80-99 fL Mean Corpuscular Hemoglobin 32 25-34 pg Mean Corpuscular Hemoglobin Concent 35 32-36 g/dL Red Cell Distribution Width 13.1 10.0-14.5 % Platelet Count 120 L 130-400 10^3/uL Mean Platelet Volume 11.5 9.0-12.2 fL Immature Granulocyte % (Auto) 1 % Neutrophils (%) (Auto) 67 42-75 % Lymphocytes (%) (Auto) 26 12-44 % Monocytes (%) (Auto) 6 0-12 % Eosinophils (%) (Auto) 1 0-10 % Basophils (%) (Auto) 0 0-10 % Neutrophils # (Auto) 4.2 1.8-7.8 10^3/uL Lymphocytes # (Auto) 1.6 1.0-4.0 10^3/uL Monocytes # (Auto) 0.4 0.0-1.0 10^3/uL Eosinophils # (Auto) 0.0 0.0-0.3 10^3/uL Basophils # (Auto) 0.0 0.0-0.1 10^3/uL Immature Granulocyte # (Auto) 0.1 0.0-0.1 10^3/uL Percent Immature Platelet Fraction 10.8 H 0.0-7.6 % OB - Assessment/Plan/Diagnosis Assessment Assessment: section Admission Dx 37 yo @ 36.4 weeks Primary for malpresentation Diamniotic/Dichorionic twin gestation Severe PreE GBS neg Admission Status: Inpatient Order (span 2 midnights) Reason for Inpatient Admission: PCS at 36 weeks/ twins Plan Plan: Section Other Plan Magnesium infusion started Repeat labs tomorrow Starting on Labetalol 200 mg BID for now, will increase if necessary Continuing MgSO4 at least overnight MARIE RIVAS DO Mar 14, 2023 11:38
[2023-03-14] MEDS ORDERED: CARBOPROST 250 MCG/ML 1 ML AMPULE IM ONE (12:14)
[2023-03-14] MEDS ORDERED: LABETALOL 200 MG TABLET PO ONE (12:45)
[2023-03-14] MEDS ORDERED: BUPIVACAINE 0.5% 30 ML VIAL ONE (12:49)
[2023-03-14] MEDS ORDERED: CATHETER FLUSH 10 ML SYR IV SCH (14:00)
[2023-03-14] MEDS: METOCLOPRAMIDE 10 MG TABLET PO SCH ×2 (14:23→20:57)
[2023-03-14] MEDS: KETOROLAC INJ 30 MG/ML VIAL IV SCH ×2 (14:24→20:56)
[2023-03-14] MEDS: OXYTOCIN DRIP PRE-MIX 500 ML IV SCH ×2 (14:32→16:51)
[2023-03-14] MEDS: HYDROcodone/ACETAMINOPHEN 5 MG/325 MG TABLET PO PRN ×2 (15:46→23:24)
--- NOTE | 2023-03-14 20:38 | OPERATIVE REPORT ---
PREOPERATIVE DIAGNOSES: 1. A 37-year-old at 36 weeks and 4 days gestation. 2. Diamniotic dichorionic . 3. Malpresentation. 4. Severe preeclampsia. POSTOPERATIVE DIAGNOSES: 1. A 37-year-old at 36 weeks and 4 days gestation. 2. Diamniotic dichorionic . 3. Malpresentation. 4. Severe preeclampsia. PROCEDURE: Primary low transverse section. SURGEON: Redd Rivas DO STRAWHAT INSPECTOR AND PACKER: Dr. Georiga Adams, PGY2. ANESTHESIA: Spinal. ESTIMATED BLOOD LOSS: 800 mL URINE OUTPUT: 300 mL clear at the end of the procedure. FLUIDS: 1100 mL lactated Ringer's solution. FINDINGS: Two live female infants. Weight of A is 6 pounds 6 ounces, Apgars of 8 and 8. Weight of B is 6 pounds and 5 ounces, Apgars of 8 and 8. Grossly normal appearing uterus, bilateral fallopian tubes and ovaries. SPECIMEN SENT: Placenta. INDICATIONS FOR PROCEDURE: This 37-year-old female is a patient who sought care in my office. Her was complicated with a diamniotic dichorionic twin gestation as well as a finding of preeclampsia in the late third trimester and was diagnosed earlier this week. The patient was taken off work and told to rest and followup later this week, which was today. At this point, she was meeting severe criteria by blood pressures in the 170s/100s. Her platelets had dropped from 150 to 120,000. Due to this, I discussed with the patient proceeding with delivery rather than waiting for 37 weeks on Friday. Risk of the procedure were discussed with the patient in detail and after all of her questions were answered, she was agreeable to proceed. Consent was obtained, the patient was taken to the operating room. OPERATIVE DESCRIPTION IN DETAIL: Once in the operating room, a spinal analgesia was administered and found to be adequate. She was placed in supine position with leftward tilt, prepped and draped in normal sterile fashion. A timeout was performed. Anesthesia was tested. I then make a Pfannenstiel skin incision with a knife and carried underlying fascia using Bovie cautery. The fascial incision extended laterally using Bovie cautery. The superior aspect of fascial incision was then grasped with Julio clamps, tented up and dissected off the underlying rectus muscles. The inferior aspect of fascial incision was then grasped with Julio clamps, tented up and dissected off the underlying rectus muscles. Rectus muscles were dissected down the midline sharply, which exposed the peritoneum, which I entered bluntly and extended using blunt traction. Sajan ring retractor was placed in the peritoneal incision, which offers excellent lateral sidewall retraction. I identified the lower uterine segment, found to be thinned out and make a low transverse incision to the vesicouterine peritoneum and bluntly dissected off the lower uterine segment, creating a bladder flap. I then proceeded my myotomy until membranes were visualized, at which point I extended the uterine incision laterally and superiorly using bandage scissors. Amniotomy was performed at that point using Allis clamp. Clear fluid was noted. A was found in the breech presentation, buttocks were elevated up the incision where delivered through the incision up to the upper torso. The arms were delivered by sweeping them across the chest and the head delivered spontaneously after this. The nares and oropharynx were bulb suctioned. The cord was duly clamped and cut. The cord of the A is marked with 1 cord clamp. The infant was then handed off to awaiting nurses in attendance. The amniotomy was performed on B, clear fluid was noted on this gestational sac as well. The infant was found in vertex presentation to the right oblique side. The head was brought down to the incision where delivered through the incision, the nares and oropharynx were bulb suctioned. Anterior and posterior shoulders were delivered. was brought to the operative field where cords were doubly clamped and cut and infant was handed off to waiting nurses in attendance. This cord was marked with 2 cord clamps. I then exteriorized the uterus and cleared of the placenta, which was delivered spontaneously thereafter. IV Pitocin was initiated to facilitate uterine contraction. Uterine fundus confirmed by manual massage. The uterus was exteriorized and cleared endometrial clots and debris. I then proceeded with closing the uterine incision using 0 Vicryl suture in a running locked fashion. Second layer of imbricating 0 Monocryl was placed. Excellent hemostasis was noted after doing this. I then placed the uterus back in the pelvis and copiously irrigated the pelvis using normal saline. Once again, resecting bleeding noted from any of my dissection planes. I placed Interceed antiadhesive over my low transverse incision and removed the Sajan ring retractor. I then proceeded with closing the peritoneum using 3-0 Vicryl suture in a running fashion. Rectus muscles were reapproximated using 3-0 Vicryl suture in interrupted fashion. The fascia was reapproximated using 0 Vicryl suture in a running fashion. The subcutaneous tissue was reapproximated using 3-0 plain interrupted subcutaneous stitch and skin reapproximated using 4-0 Monocryl running subcuticular. Dermabond was applied to incision, sterile dressing with adhesive white tape. The patient tolerated the procedure well and was taken to recovery area in stable condition. Lap and sponge counts were correct at the end of the procedure. Instrument counts were correct as well. Job ID: [id number] DocumentID: [id number] Dictated Date: 03/14/2023 12:50:16 Tongue Lining Stitcher Date: 03/14/2023 20:36:00 Dictated By: REDD RIVAS DO
[2023-03-14] MEDS: LABETALOL 200 MG TABLET PO SCH (20:57)
[2023-03-14] MEDS: DOCUSATE SODIUM 100 MG CAPSULE PO SCH (21:00)
[2023-03-14] MEDS: D5 LR 1,000 ML IV SOLN 1,000 ML IV SCH (21:30)
[2023-03-15] VITALS (12 sets, daily range): BP systolic 103–148; BP diastolic 60–87
[2023-03-15] MEDS: HYDROcodone/ACETAMINOPHEN 5 MG/325 MG TABLET PO PRN ×4 (00:48→18:36)
[2023-03-15] MEDS: METOCLOPRAMIDE 10 MG TABLET PO SCH ×5 (03:31→23:22)
[2023-03-15] MEDS: KETOROLAC INJ 30 MG/ML VIAL IV SCH ×2 (03:31→10:03)
[2023-03-15] MEDS: D5 LR 1,000 ML IV SOLN 1,000 ML IV SCH (04:42)
[2023-03-15 06:26] LABS: MONOCYTES # (AUTO) 0.4 10^3/uL (0.0-1.0); MONOCYTES % (AUTO) 6 % (0-12); NEUTROPHILS # (AUTO) 4.9 10^3/uL (1.8-7.8)
[2023-03-15 06:28] LABS: BASOPHILS % (AUTO) 0 % (0-10); EOSINOPHILS % (AUTO) 0 % (0-10); HEMATOCRIT 27 % (35-52); LYMPHOCYTES # (AUTO) 1.4 10^3/uL (1.0-4.0); LYMPHOCYTES % (AUTO) 20 % (12-44); MEAN CORPUSCULAR HEMOGLOBIN 32 pg (25-34); MEAN CORPUSCULAR HGB CONC 33 g/dL (32-36); MEAN CORPUSCULAR VOLUME 96 fL (80-99); MEAN PLATELET VOLUME 11.9 fL (9.0-12.2); NEUTROPHILS % (AUTO) 72 % (42-75); PLATELET COUNT 102 10^3/uL (130-400); WHITE BLOOD COUNT 6.8 10^3/uL (4.3-11.0)
[2023-03-15 06:42] LABS: ALBUMIN 2.4 GM/DL (3.2-4.5)
[2023-03-15 06:43] LABS: POTASSIUM 3.8 MMOL/L (3.6-5.0)
[2023-03-15 06:44] LABS: CALCIUM 7.8 MG/DL (8.5-10.1)
[2023-03-15 06:45] LABS: TOTAL PROTEIN 4.7 GM/DL (6.4-8.2)
[2023-03-15 06:47] LABS: BILIRUBIN,TOTAL 0.2 MG/DL (0.1-1.0)
[2023-03-15 06:49] LABS: CREATININE SERUM 0.62 MG/DL (0.60-1.30)
[2023-03-15] MEDS: MAGNESIUM SULFATE DRIP 500 ML IV SCH (06:59)
[2023-03-15] MEDS: LABETALOL 200 MG TABLET PO SCH ×2 (09:05→21:00)
--- NOTE | 2023-03-15 09:16 | Postpartum Progress Note ---
Note Note Day # 1 Subjective: Patient is without complaints. Pt is diuresing on Magnesium. Blood pressures stable Objective: [] Physical Exam: General - Alert and oriented, no apparent distress Abdomen - Soft, appropriately tender to palpation, non-distended, fundus firm at umbilicus Extremities - no edema, negative John's bilaterally Assessment: [] post- day # 1 status post LTCS Severe pre-eclampsia Plan: d/c magnesium sulfate- ambulate, void, d/c magana Vitals - Labs Vital Signs - I&O Vital Signs Date Time Temp Pulse Resp B/P (MAP) Pulse Ox O2 Delivery O2 Flow Rate FiO2 03/15/23 08:20 79 16 103/62 (76) 03/15/23 08:18 36.7 79 16 103/62 (76) 96 Room Air 03/15/23 06:55 36.6 71 16 125/73 (90) 97 Room Air 03/15/23 05:30 80 16 123/64 (83) Room Air 03/15/23 04:30 37.6 90 18 117/60 (79) Room Air 03/15/23 03:30 37.8 97 16 117/71 (86) Room Air 03/15/23 02:00 37.7 91 18 140/79 (99) 97 Room Air 03/15/23 01:00 37.0 88 18 122/79 (93) 98 Room Air 03/15/23 00:00 36.9 87 18 126/79 (95) 97 Room Air 03/14/23 23:00 37.0 83 18 128/82 (97) 97 Room Air 03/14/23 22:00 36.7 88 18 126/75 (92) 98 Room Air 03/14/23 21:00 37.0 73 18 147/90 (109) 98 Room Air 03/14/23 20:00 37.0 79 18 139/91 (107) 97 Room Air 03/14/23 19:00 74 18 133/80 (97) 03/14/23 19:00 74 18 133/80 (97) 97 Room Air 03/14/23 17:44 37.0 74 18 126/84 (98) 97 Room Air 03/14/23 17:44 74 18 126/84 (98) 03/14/23 16:30 81 137/82 (100) Room Air 03/14/23 16:30 78 16 137/82 (100) 03/14/23 15:30 71 16 151/97 (115) 03/14/23 15:30 36.3 71 18 151/97 (115) 97 Room Air 03/14/23 13:45 Room Air 03/14/23 13:45 36.2 16 152/110 (124) 97 Room Air 149/109 (122) 03/14/23 13:32 35.9 16 140/105 (117) 97 Room Air 03/14/23 13:32 Room Air 03/14/23 13:16 Room Air 03/14/23 13:16 36.1 16 142/97 (112) 99 Room Air 03/14/23 13:06 Room Air 03/14/23 13:06 36.1 16 129/88 (102) 98 Room Air 03/14/23 13:05 36.1 73 16 129/88 (102) 98 Room Air 03/14/23 11:25 81 165/98 (120) Room Air 03/14/23 11:15 75 172/99 (123) Room Air 03/14/23 10:40 78 159/108 (125) Room Air 03/14/23 10:30 36.3 78 18 161/100 (120) 97 Room Air 03/14/23 10:30 36.3 78 18 97 Room Air I & O 03/15/23 06:59 Intake Total 7350 ml Output Total 2300 ml Balance 5050 ml Labs Laboratory Tests 03/14/23 10:55: White Blood Count 6.4, Red Blood Count 3.89, Hemoglobin 12.6, Hematocrit 37, Mean Corpuscular Volume 94, Mean Corpuscular Hemoglobin 32, Mean Corpuscular Hemoglobin Concent 35, Red Cell Distribution Width 13.1, Platelet Count 120L, Mean Platelet Volume 11.5, Immature Granulocyte % (Auto) 1, Neutrophils (%) (Auto) 67, Lymphocytes (%) (Auto) 26, Monocytes (%) (Auto) 6, Eosinophils (%) (Auto) 1, Basophils (%) (Auto) 0, Neutrophils # (Auto) 4.2, Lymphocytes # (Auto) 1.6, Monocytes # (Auto) 0.4, Eosinophils # (Auto) 0.0, Basophils # (Auto) 0.0, Immature Granulocyte # (Auto) 0.1, Percent Immature Platelet Fraction 10.8H 03/15/23 05:21: White Blood Count 6.8, Red Blood Count 2.81L, Hemoglobin 9.0#L, Hematocrit 27L, Mean Corpuscular Volume 96, Mean Corpuscular Hemoglobin 32, Mean Corpuscular Hemoglobin Concent 33, Red Cell Distribution Width 13.3, Platelet Count 102L, Mean Platelet Volume 11.9, Immature Granulocyte % (Auto) 1, Neutrophils (%) (Auto) 72, Lymphocytes (%) (Auto) 20, Monocytes (%) (Auto) 6, Eosinophils (%) (Auto) 0, Basophils (%) (Auto) 0, Neutrophils # (Auto) 4.9, Lymphocytes # (Auto) 1.4, Monocytes # (Auto) 0.4, Eosinophils # (Auto) 0.0, Basophils # (Auto) 0.0, Immature Granulocyte # (Auto) 0.0, Percent Immature Platelet Fraction 6.0, Sodium Level 135, Potassium Level 3.8, Chloride Level 110H, Carbon Dioxide Level 19L, Anion Gap 6, Blood Urea Nitrogen 5L, Creatinine 0.62, Estimat Glomerular Filtration Rate 119, BUN/Creatinine Ratio 8, Glucose Level 120H, Calcium Level 7.8L, Corrected Calcium 9.1, Total Bilirubin 0.2, Aspartate Amino Transf (AST/SGOT) 43H, Alanine Aminotransferase (ALT/SGPT) 53, Alkaline Phosphatase 129, Total Protein 4.7L, Albumin 2.4L RICHELLE BARBER DO Mar 15, 2023 09:15
--- NOTE | 2023-03-15 09:41 | Anesthesia-Regional Post-Op ---
Regional Patient Condition Mental Status: Alert, Oriented x3 Circulation: Same as Pre-Op Headache: Absent Sensation: Full Recovery Motor Block: Absent Post Op Complications Complications None Follow Up Care/Instructions Patient Instructions None needed. Anesthesia/Patient Condition Patient is doing well. She does C/O a sore back which is common. Site looks good, no erythema or excessive bruising. She has stable vital signs, no apparent adverse anesthesia problems. No complications reported per nursing. DOLORES FREDERICK DO Mar 15, 2023 09:41
[2023-03-15] MEDS: DOCUSATE SODIUM 100 MG CAPSULE PO SCH ×2 (10:03→20:38)
[2023-03-15] MEDS: SIMETHICONE 80 MG CHEWABLE TABLET PO PRN ×2 (14:00→20:38)
[2023-03-15] MEDS: IBUPROFEN 600 MG TABLET PO SCH ×2 (16:19→23:22)
[2023-03-16 00:45] VITALS: BP 150/90
[2023-03-16] MEDS: SIMETHICONE 80 MG CHEWABLE TABLET PO PRN (03:15)
[2023-03-16 03:56] VITALS: BP 140/91
[2023-03-16] MEDS: HYDROcodone/ACETAMINOPHEN 5 MG/325 MG TABLET PO PRN ×2 (03:57→10:25)
[2023-03-16 05:41] VITALS: BP 147/97
[2023-03-16] MEDS: IBUPROFEN 600 MG TABLET PO SCH (05:43)
[2023-03-16] MEDS: METOCLOPRAMIDE 10 MG TABLET PO SCH (05:58)
--- NOTE | 2023-03-16 06:18 | Discharge Summary ---
Discharge Summary Hospital Course Problems Reviewed?: Yes Problems/Diagnosis: (1) 39 week IOL Status: Resolved Resolution Date/Time: 03/16/23 @ 06:11 (2) repeat c/s Status: Resolved Resolution Date/Time: 03/16/23 @ 06:11 Hospital Course Date of Admission: Mar 14, 2023 at 10:15 Admission Diagnosis : Family Physician/Provider: Radha Chadwick MD Date of Discharge: 03/16/23 Discharge Diagnosis: IUP at 39 weeks LTCS Hospital Course: Admitted for LTCS for severe pre-eclampsia. Magnesium sulfate seizure pro phylaxis x 24 hours. Routine course Labs and Pending Lab Test: Home Meds Active Dok (Docusate Sodium) 100 Mg Capsule 100 Mg PO BID Acetaminophen 500 Mg Tablet 1,000 Mg PO Q8HR Ibu (Ibuprofen) 600 Mg Tablet 600 Mg PO Q6HR Ferrous Sulfate 325 Mg Tablet 325 Mg PO DAILY Reported Levothyroxine Sodium 100 Mcg Tablet 100 Mcg PO DAILY Vitamins ( Vit W-Ca,Fe,FA(<1 mg)) 1 Each Tablet 1 Each PO Driving Instructions: No Driving for 1 Week Nothing Inside Vagina: No Douching, No [place] Discharge Diet: No Restrictions Symptoms to Report to : Bleeding Excessive, Fever Over 101 Degrees F For Any Problems or Questions: Contact Your Physician Infection Signs and Symptoms: Increased Redness, Increased Drainage Operative Area Clean and Dry: Keep Incision Clean/Dry Stitches/[place]/Dermabond: Dermabond Bathing Instructions: Shower Discharge Physical Examination Allergies: Coded Allergies: No Known Drug Allergies (Unverified , 12/09/11) Vitals & I&Os Vital Signs Date Time Temp Pulse Resp B/P (MAP) Pulse Ox O2 Delivery O2 Flow Rate FiO2 03/16/23 05:41 36.8 76 20 147/97 (114) 97 Room Air General Appearance: No Apparent Distress Respiratory: No Respiratory Distress Gastrointestinal: Non Tender, Soft Extremity: Non Tender Neurologic/Psychiatric: Alert, Normal Mood/Affect Discharge Summary Date of Admission Mar 14, 2023 at 10:15 Date of Discharge 03/16/23 Discharge Time: 06:30 Admission Diagnosis IUP at 39 weeks LTCS Discharge Diagnosis (1) repeat c/s Status: Resolved (2) 39 week IOL Status: Resolved Supervisory-Addendum Brief Verification & Attestation Participated in pt care: history Personally performed: exam Care discussed with: other (n/a) Procedures: n/a n/a RICHELLE BARBER DO Mar 16, 2023 06:15
[2023-03-16] MEDS ORDERED: IBUP-1780 PO ×2 (06:23)
[2023-03-16] MEDS ORDERED: LABE200T10 PO ×2 (06:23)
[2023-03-16] MEDS ORDERED: ACHD5005 PO ×2 (06:23)
[2023-03-16 10:15] VITALS: BP 157/102
[2023-03-16] MEDS: LABETALOL 200 MG TABLET PO SCH (10:22)
[2023-03-16] MEDS: DOCUSATE SODIUM 100 MG CAPSULE PO SCH (10:23)
== END 2023-03-16 11:45 | disposition home or self-care (01) | DRG 788 ==
LOC: LDRP 10:15
PROVIDERS: ADMIT Obstetrics & Gynecology; ATTEND Obstetrics & Gynecology
PROC: 10D00Z1 Extraction of Products of Conception, Low, Open Approach (ICD-10-PCS; principal; 2023-03-14 11:42)
DX: O64.1XX1 Obstructed labor due to breech presentation, fetus 1 (principal); O30.043 Twin pregnancy, dichorionic/diamniotic, third trimester; Z3A.36 36 weeks gestation of pregnancy; Z37.2 Twins, both liveborn; O14.14 Severe pre-eclampsia complicating childbirth
CPT/HCPCS: 36415; 80053; 85025; 85027; 86850; 86900; 86901; 94664

== ENCOUNTER → 2023-03-14 | Outpatient (CLI) | payer OTHER | LOC: LABNPT 09:34 | PROVIDERS: ATTEND Obstetrics & Gynecology | DX: O13.9 Gestational [pregnancy-induced] hypertension without significant proteinuria, unspecified trimester (principal); Z3A.00 Weeks of gestation of pregnancy not specified | CPT/HCPCS: 82570; 84156 ==